=== PATIENT | female | born 1945 | race Caucasian/White ===

== ENCOUNTER → 2017-11-19 08:15 | Outpatient (CLI) | payer MEDICARE, SELFPAY ==
[2017-11-19 12:33] LABS: Absolute Neutrophil Count 1.7 X10^3/uL (2.0-7.7); Basophil# 0.04 X10^3/uL; Basophil% 1.1 % (0-1); Eosinophil# 0.31 X10^3/uL; Eosinophils% 8.3 % (0-5); Hematocrit 37.2 % (37-47); Hemoglobin 12.2 g/dl (12.0-15.0); Lymphocyte % 34.9 % (19-41); Mean Corp Hgb Conc 32.8 g/gl (32-36); Mean Corpuscular Hgb 31.3 pg (27.0-32.0); Mean Corpuscular Volume 95.4 fL (81-99); Mean Platelet Vol. 10.3 fl (6.2-12.0); Monocyte# 0.38 X10^3/uL; Monocyte% 10.2 % (0-10); Neutrophil % 45.5 % (47-70); Platelet Count 200 K/mm3 (150-450); RBC Distribution Width SD 40.7 fl (35.1-43.9); White Blood Count 3.7 K/mm3 (4.4-11.0)
[2017-11-19 12:40] LABS: POSITIVE COUNT NO; POSITIVE DIFFERENTIAL NO; POSITIVE MORPHOLOGY NO
[2017-11-19 12:48] LABS: AST(SGOT) 19 U/L (15-37); Alanine Aminotransfer ALT/SGPT 22 U/L (12-78); Albumin, Serum 3.8 g/dL (3.4-5.0); Alkaline Phosphatase 79 U/L (45-117); Anion Gap 9 (5-15); BUN 21 mg/dL (7-18); BUN/Creat Ratio 15.9 RATIO (10-20); Calcium,Total 9.1 mg/dL (8.5-10.1); Chloride 101 mmol/L (98-107); Cholesterol 188 mg/dL (200); Creatinine, Serum 1.32 mg/dL (0.55-1.02); EST Glomerular Filtration Rate 42 mL/min (>60); Est Glom Filt Rate - Afr Amer 51 mL/min (>60); Globulin 3.9 g/dL (2.2-4.2); Glucose 88 mg/dL (70-110); High Density Lipoprotein 77 mg/dL; Potassium 4.1 mmol/L (3.5-5.1); Protein, Total 7.7 g/dL (6.4-8.2); Sodium Level 138 mmol/L (136-145); Thyroid Stim Hormone (TSH) 2.01 uIU/mL (0.358-3.74); Triglycerides 70 mg/dL; Very Low Density Lipoprotein 14 mg/dL (5-40)
--- OUTSIDE RECORDS SUMMARY | 2018-01-02 11:50 | XMS RPT_ITS ---
:1945 Author Organization OHIP Care Team Providers Name Role Phone Mahendra Brown Primary Care Unavailable Dandre Dolan Attending Unavailable Saud Villa Admitting Unavailable Saud Villa Attending Unavailable Mahendra Brown Primary Care Unavailable Mahendra Brown Attending Unavailable Mahendra Brown Primary Care Unavailable Mahendra Brown Attending Unavailable Mahendra Brown Primary Care Unavailable PROBLEMS PROBLEMS DATE TYPE CONDITION / CODE ATTENDING STATUS SOURCE 01/02/2018 Unknown I10 - Essential Mahendra Brown (primary) Community hypertension / Hospital I10(ICD-10) Repository 06/05/2017 Unknown ESSENTIAL Mahendra Brown Active [place] (PRIMARY) Community HYPERTENSION / Hospital I10(ICD-10) Repository 06/05/2017 Unknown MAJOR DEPRESSIVE Mahendra Brown Active [facility] DISORDER, SINGLE Community EPISODE, Hospital UNSPECIFIED / Repository F32.9(ICD-10) 06/05/2017 Unknown HYPERLIPIDEMIA, Mahendra Brown Active [facility] UNSPECIFIED / Community E78.5(ICD-10) Hospital Repository 02/25/2017 Final diagnosis UNILATERAL PRIMARY Saud Villa Active [facility] (discharge) OSTEOARTHRITIS, Community LEFT HIP / Hospital M16.12(ICD-10) Repository 02/25/2017 Final diagnosis ESSENTIAL Saud Villa Active [place] (discharge) (PRIMARY) Community HYPERTENSION / Hospital I10(ICD-10) Repository 02/25/2017 Final diagnosis PURE Saud Villa Active [place] (discharge) HYPERCHOLESTEROLEM Community IA, UNSPECIFIED / Hospital E78.00(ICD-10) Repository 02/25/2017 Final diagnosis SLEEP APNEA, Saud Villa Active [place] (discharge) UNSPECIFIED / Community G47.30(ICD-10) Hospital Repository 02/11/2017 Admitting SYNCOPE AND Dolan, Dandre Active [place] diagnosis COLLAPSE / Community R55(ICD-10) Hospital Repository PROCEDURES PROCEDURES DATE CODE DESCRIPTION STATUS SOURCE 02/03/2017 8YOG94N(ICD-10 REPLACE L HIP JT W Completed [facility] Community ) METAL ON POLY, Hospital Repository UNCEMENT, OPEN RESULTS RESULTS CBC W/DIFF, AUTOMATED Collected: 11/19/2017 Status: F Source: BERE 8:30 AM [facility] REPOSITORY TYPE CODE TESTS RESULT OUT OF RANGE REFERENCE UNITS LAB L100.1000 Low 4.4-11.0 K/mm3 WBC 3.7 LAB L100.1200 Low 4.2-5.4 M/mm3 RBC 3.90 LAB L100.1300 Normal 12.0-15.0 g/dl HGB 12.2 LAB L100.1400 Normal 37-47 % HCT 37.2 LAB L100.1500 Normal 81-99 fL MCV 95.4 LAB L100.1600 Normal 27.0-32.0 pg MCH 31.3 LAB L100.1700 Normal 32-36 g/gl MCHC 32.8 LAB L100.1810 Normal 11.6-14.6 % RDW 12.0 CV LAB L100.1820 Normal 35.1-43.9 fl RDW 40.7 SD LAB L100.1900 Normal 150-450 K/mm3 PLT 200 LAB L100.2000 Normal 6.2-12.0 fl MPV 10.3 LAB L100.2100 Low 47-70 % NEUT% 45.5 LAB L100.2200 Normal 19-41 % LY% 34.9 LAB L100.2300 High 0-10 % MONO% 10.2 LAB L100.2400 High 0-5 % EO% 8.3 LAB L100.2500 High 0-1 % BASO% 1.1 LAB L100.2550 Normal 0.0-0.9 % IM 0.000 GRAN % Result Comment: IG% - Immature Granulocytes (promyelocytes, myelocytes andmetamyelocytes) > 1% indicates that a LEFT SHIFT is Present. LAB L100.2620 Low 2.0-7.7 X10 3/uL Absolute Neut 1.7 LAB L100.2720 Normal 0.83-4.51 X10 3/ul Absolute Lymph 1.30 Performed By: #### L100.0100 ####[facility] [address] [place], [address] COMPREHENSIVE METABOLIC Collected: 11/19/2017 Status: F Source: BERE PROFIL 8:30 AM [facility] REPOSITORY TYPE CODE TESTS RESULT OUT OF RANGE REFERENCE UNITS LAB L501.0100 Normal 70-110 mg/dL GLU 88 LAB L501.1000 High 7-18 mg/dL BUN 21 LAB L501.1100 High 0.55-1.02 mg/dL 1.32 CREAT,SERUM Result Comment: The validity of the calculated GFR AND GFRAA in patients over70 years has not been determined. Clinical correlation isessential. LAB L501.1110 Low >60 mL/min EST GFR 42 Result Comment: Non- GFR Calc LAB L501.1115 Low >60 mL/min EST GFR - AA 51 Result Comment: GFR Calc LAB L501.1300 Normal 10-20 RATIO BUN/CRE 15.9 LAB L501.1500 Normal 6.4-8.2 g/dL T PROT 7.7 LAB L501.1800 Normal 3.4-5.0 g/dL ALB 3.8 Result Comment: Please note revised Albumin AND Globulin reference rangeeffective 2017. LAB L501.1950 Normal 2.2-4.2 g/dL GLOB 3.9 LAB L501.2000 Normal 0.9-2.4 RATIO A/G 1.0 LAB L501.2200 Normal 8.5-10.1 mg/dL CA 9.1 LAB L501.4100 Normal 15-37 U/L AST 19 LAB L501.4305 Normal 45-117 U/L ALK P 79 LAB L501.4405 Normal 12-78 U/L ALT 22 LAB L501.4600 Normal 0.20-1.00 mg/dL T BILI 0.40 LAB L501.5300 Normal 136-145 mmol/L NA 138 LAB L501.5600 Normal 3.5-5.1 mmol/L K 4.1 LAB L501.5900 Normal 98-107 mmol/L CL 101 LAB L501.6100 Normal 21.0-32.0 mmol/L CO2 28.0 LAB L501.6200 Normal 5-15 GAP 9 Performed By: #### L500.4050, L500.4100, L501.9520 ####[facility] [address] [place], [place], [id number] LIPID PROFILE Collected: 11/19/2017 Status: F Source: BERE 8:30 AM [facility] REPOSITORY TYPE CODE TESTS RESULT OUT OF RANGE REFERENCE UNITS LAB L501.4900 Normal 200 mg/dL CHOL 188 Result Comment: <200 mg/dL Desirable 200-240 mg/dL Borderline >240 mg/dL High Risk LAB L501.5000 Normal mg/dL TRIG 70 Result Comment: The drugs N-Acetylcysteine and Metamizole may falselydepress this assay.Serum Triglycerides Reference Interval Normal <150 mg/dL Borderline high 150 - 199 mg/ dL High 200 - 499 mg/dL Very High > or = 500 mg/dL LAB L501.6400 Normal mg/dL HDL 77 Result Comment: The drugs N-Acetylcysteine and Metamizole may falselydepress this assay. Reference Range HDL <40 mg/dL Low HDL Cholesterol HDL >or= 60 mg/dL High HDL Cholesterol LAB L501.6500 Normal 0-130 mg/dL LDL 97 LAB L501.6600 Normal 5-40 mg/dL VLDL 14 Performed By: #### L500.4050, L500.4100, L501.9520 ####[facility] [address] [place], [place], [address] THYROID STIM HORMONE Collected: 11/19/2017 Status: F Source: HUBERT (TSH) 8:30 AM [facility] REPOSITORY TYPE CODE TESTS RESULT OUT OF RANGE REFERENCE UNITS LAB L501.9520 Normal 0.358-3.74 uIU/mL TSH 2.01 Performed By: #### L500.4050, L500.4100, L501.9520 ####[facility] [address] [place], [address] CBC W/DIFF, AUTOMATED Collected: 05/19/2017 Status: F Source: BERE 8:46 AM [facility] REPOSITORY TYPE CODE TESTS RESULT OUT OF RANGE REFERENCE UNITS LAB L100.1000 Low 4.4-11.0 K/mm3 WBC 3.8 LAB L100.1200 Low 4.2-5.4 M/mm3 RBC 3.90 LAB L100.1300 Low 12.0-15.0 g/dl HGB 11.5 LAB L100.1400 Low 37-47 % HCT 36.2 LAB L100.1500 Normal 81-99 fL MCV 92.8 LAB L100.1600 Normal 27.0-32.0 pg MCH 29.5 LAB L100.1700 Low 32-36 g/gl MCHC 31.8 LAB L100.1810 Normal 11.6-14.6 % RDW 12.6 CV LAB L100.1820 Normal 35.1-43.9 fl RDW 42.4 SD LAB L100.1900 Normal 150-450 K/mm3 PLT 217 LAB L100.2000 Normal 6.2-12.0 fl MPV 10.3 LAB L100.2100 Low 47-70 % NEUT% 46.4 LAB L100.2200 Normal 19-41 % LY% 34.4 LAB L100.2300 Normal 0-10 % MONO% 9.6 LAB L100.2400 High 0-5 % EO% 7.7 LAB L100.2500 High 0-1 % BASO% 1.6 LAB L100.2550 Normal 0.0-0.9 % IM 0.300 GRAN % Result Comment: IG% - Immature Granulocytes (promyelocytes, myelocytes andmetamyelocytes) > 1% indicates that a LEFT SHIFT is Present. LAB L100.2620 Low 2.0-7.7 X10 3/uL Absolute Neut 1.7 LAB L100.2720 Normal 0.83-4.51 X10 3/ul Absolute Lymph 1.29 Performed By: #### L100.0100 ####[facility] [address] [place], [place], [address] BASIC METABOLIC Collected: 05/19/2017 Status: F Source: BERE PROFILE (BMP) 8:46 AM [facility] REPOSITORY TYPE CODE TESTS RESULT OUT OF RANGE REFERENCE UNITS LAB L501.0100 Normal 70-110 mg/dL GLU 94 LAB L501.1000 High 7-18 mg/dL BUN 19 LAB L501.1100 High 0.55-1.02 mg/dL 1.35 CREAT,SERUM Result Comment: The validity of the calculated GFR AND GFRAA in patients over70 years has not been determined. Clinical correlation isessential. LAB L501.1110 Low >60 mL/min EST GFR 41 Result Comment: Non- GFR Calc LAB L501.1115 Low >60 mL/min EST GFR - AA 49 Result Comment: GFR Calc LAB L501.1300 Normal 10-20 RATIO BUN/CRE 14.1 LAB L501.2200 Normal 8.5-10.1 mg/dL CA 9.4 LAB L501.5300 Normal 136-145 mmol/L NA 138 LAB L501.5600 Normal 3.5-5.1 mmol/L K 4.6 LAB L501.5900 Normal 98-107 mmol/L CL 104 LAB L501.6100 Normal 21.0-32.0 mmol/L CO2 30.0 LAB L501.6200 Low 5-15 GAP 4 Performed By: #### L500.2500, L500.4100, L501.9520 ####[facility] [address] [place], [address] LIPID PROFILE Collected: 05/19/2017 Status: F Source: HUBERT 8:46 AM [facility] REPOSITORY TYPE CODE TESTS RESULT OUT OF RANGE REFERENCE UNITS LAB L501.4900 Normal 200 mg/dL CHOL 198 Result Comment: <200 mg/dL Desirable 200-240 mg/dL Borderline >240 mg/dL High Risk LAB L501.5000 Normal mg/dL TRIG 68 Result Comment: The drugs N-Acetylcysteine and Metamizole may falsely deressthis assay.Serum Triglycerides Reference Interval Normal <150 mg/dL Borderline high 150 - 199 mg/ dL High 200 - 499 mg/dL Very High > or = 500 mg/dL LAB L501.6400 Normal mg/dL HDL 83 Result Comment: The drugs N-Acetylcysteine and Metamizole may falsely deressthis assay. Reference Range HDL <40 mg/dL Low HDL Cholesterol HDL >or= 60 mg/dL High HDL Cholesterol LAB L501.6500 Normal 0-130 mg/dL LDL 101 LAB L501.6600 Normal 5-40 mg/dL VLDL 14 Performed By: #### L500.2500, L500.4100, L501.9520 ####[facility] [address] [place], [address] THYROID STIM HORMONE Collected: 05/19/2017 Status: F Source: HUBERT (TSH) 8:46 AM [facility] REPOSITORY TYPE CODE TESTS RESULT OUT OF RANGE REFERENCE UNITS LAB L501.9520 Normal 0.358-3.74 uIU/mL TSH 1.97 Performed By: #### L500.2500, L500.4100, L501.9520 ####[facility] [address] [place], [address] DISCHARGE INSTRUCTION Observed: 02/05/2017 Status: F Source: BEER 10:29 AM [facility] REPOSITORY [facility] [address] [place], [place] [address]Htcicpdjtvsp for Home/Discharge Khgeuvzxtwzt36/12/17 1028 #: [id number] Acct: [id number]: MOISÉS JIMENEZ Rep #: [id number]: 1945 71 From: Reyes WADDELLCPCP: Mahendra Brown Status: ADM INDischarge Diet: No RestrictionsDischarge Activity: May Not Drive, May Shower , Use WalkerMay shower in (days): 1 - only if incision is dry and without drainage. Do NOT soak/submerge intub/pool/nickerson/stream/hot tub.May resume sexual activity in: No RestrictionsIce area for (Minutes): 20 - every hour while awakeWeight Bearing Status: Weight bearing as tolLifting Restrictions: 20 poundsElevate: Operative ExtremityCall your doctor if your incision/area has: Continuous Slow Oozing, Sudden Increased Bleeding,Increased Pain/ Swelling, Increased Redness, Foul Smelling DischargeCall your doctor if you observe: Fever of 101 or Higher, Inability to urinate, Inability tohave a bowel movement, Shortness of breath, Fainting spells, Chest pain, Increased palpitations(irregular heartbeat), Calf discomfort, Uncontrolled painChange Dressing in (Days):: 0 - Change daily and as needed.Remove Dressing in (days):: 3Cleanse incision/area with: Soap AND WaterAllergies/Adverse Reactions:AllergiesNo Known Allergies Allergy (Verified 01/27/17 12:29)Medications to take at DischargeCalcium (Elemental) [Os-Nicolas 500] 500 mg PO DAILY@0800 01/27/17Citalopram [Celexa] 40 mg PO DAILY 01/27/17Fish Oil/Dha/Epa [Fish Oil 1,200 mg Fish Oil] 1 each PO DAILY 01/27/17Losartan/Hydrochlorothiazide [Losartan-Hctz 50-12.5 mg Tab] 1 each PO QHS 01/27/17Nortriptyline HCl [Pamelor] 50 mg PO QHS 01/27/17Simvastatin [Zocor] 10 mg PO QHS 01/27/17Vitamin E Acetate [Vitamin E] 1,000 unit PO DAILY cetaminophen [Tylenol] 1,000 mg PO Q8 #90 tablet 02/05/17spirin 325 mg PO BIDCM #60 tablet 02/05/17TraMADol [Ultram (G)] 100 mg PO Q6H PRN PRN #90 tablet 02/05/17The following prescriptions were given:TraMADol [Ultram (G)] 100 mg PO Q6H PRN PRN #90 tabletPRN Reason: PainAcetaminophen [Tylenol] 1,000 mg PO Q8 #90 tabletAspirin 325 mg PO BIDCM #60 tabletPrimary Care Physician:Mahendra Brown MD [Primary Care Provider] - Please Follow Up With: Saud Villa02/05/17 1029 <Electronically signed by Reyes Hdez PA-C>Date Reyes ROSALES: Mahendra Brown OPERATIVE REPORT Observed: 02/04/2017 Status: F Source: HUBERT 8:09 AM [facility] REPOSITORY [facility] [address] [place] [address]Coitshnzy ReportMR#: [id number] Acct: [id number]: MOISÉS JIMENEZ Rep #: [id number]: 1945 71 From: Saud Villa DOPCP: Mahendra Brown Status: ADM INDATE OF SERVICE: 2016DATE OF SERVICE:February 03, 2017OPERATION:Left total hip replacement arthroplasty utilizing Lisbeth Trident size 50 acetabular cup,MDM metal liner, size 7 Accolade type II 132 degree neck angle femoral stem with +0 cobaltchromium polyethylene modular femoral head.PREOPERATIVE DIAGNOSIS:Osteoarthritis, left hip.POSTOPERATIVE DIAGNOSIS:Osteoarthritis, left hip.SURGEON:Saud Villa D.O.CLINIC OFFICE MANAGER: OSMAR Martinez-CANESTHESIA:Spinal.ANESTHESIOLOGIST:LisalaAINS:None.SPECIMEN: Bone.COMPLICATIO NS:None.ESTIMATED BLOOD LOSS:150 mL.DESCRIPTION OF PROCEDURE:With appropriate informed consent, the patient was taken to the operative suite. Afterthe induction of spinal anesthetic and administration of preoperative antibiotics, thepatient was placed in the lateral decubitus position with the left side up. All bonyprominences were well padded. Subsequently, the left hip and leg were prepared and drapedsterilely. Thereafter, a gently curved longitudinal incision was made over the lateralaspect of the left hip, centered it to the greater trochanter. Dissection was carrieddown through the subcutaneous tissue to the fascia of the tensor. The tensor fascia wasincised in line with the incision and then a Charnley retractor was placed. Subsequently,short external rotators were tagged with a stitch and cut. A posterior capsulotomy wasperformed and the hip was dislocated with internal rotation. Severe osteoarthritis wasappreciated. Subsequently, the femoral neck was marked with femoral neck resection guideand an oscillating saw was utilized to perform the femoral neck osteotomy. Theosteotomized bone was removed and sent as specimen. Thereafter, a retractor was placeddeep around the acetabulum. Labral tissue was removed and then sequential reaming of thecup was carried out to a 49 reamer. A size [address] cup was impacted into place. The MDM metalliner was snapped into place and then attention was brought to the femur.Access was gained to the femoral shaft with a box chisel and starting awl and thensequential broaching was carried out up to a size 7 broach. Trialing off the 7 broachrevealed the +0 head neck length gave excellent range of motion, stability andreapproximation of the patient's leg lengths.The trial was removed. Pericapsular soft tissue was injected with orthopedic jointcocktail for postoperative pain management. Thereafter, the permanent stem was impactedinto place. It seated to the exact same level as the trial. Therefore, the trunnion wascleansed and the permanent modular cobalt chromium polyethylene ball was impacted intoplace on the stem. The hip was relocated for a final time. Copious irrigation wascarried out with the terminal Betadine soak. Thereafter, the short external rotators wererepaired through drill holes in the greater trochanter and the wound was closed in layersin standard fashion with enmanuel on the skin. Sterile well- padded dressing was applied.My medical library assistant, Mr. Hdez, provided a vital role in performance of this procedure, beginningwith positioning the patient, maneuvering the leg and retracting soft tissues duringexposure of the wound, preparation of the bone and placement of the prosthesis. Then,under my direct supervision, he closed the wound and applied sterile postoperativedressing. Postoperatively, the patient was transferred to the PACU in stable andsatisfactory condition.Saud Villa, DOT : NTSJOB: [id number]/09/12 [id number] <Electronically signed by Saud Villa DO>Date Saud Villa DOCosigner Signature (If Indicated): Date ___CC: Saud Brown Date Dictated: 02/03/17 1257Date Transcribed : 02/03/17 1257Transcriptionist:Signed CBC-COMPLETE BLOOD CNT Collected: 02/04/2017 Status: F Source: BERE NO DIFF 5:30 AM [facility] REPOSITORY TYPE CODE TESTS RESULT OUT OF RANGE REFERENCE UNITS LAB L100.1000 Normal 4.4-11.0 K/mm3 WBC 5.9 LAB L100.1200 Low 4.2-5.4 M/mm3 RBC 3.09 LAB L100.1300 Low 12.0-15.0 g/dl HGB 9.6 LAB L100.1400 Low 37-47 % HCT 29.2 LAB L100.1500 Normal 81-99 fL MCV 94.5 LAB L100.1600 Normal 27.0-32.0 pg MCH 31.1 LAB L100.1700 Normal 32-36 g/gl MCHC 32.9 LAB L100.1810 Normal 11.6-14.6 % RDW 12.3 CV LAB L100.1820 Normal 35.1-43.9 fl RDW 41.5 SD LAB L100.1900 Normal 150-450 K/mm3 PLT 173 LAB L100.2000 Normal 6.2-12.0 fl MPV 9.2 Performed By: #### L100.0500, L500.2500 ####[facility] [address] [place], [place], [address] BASIC METABOLIC Collected: 02/04/2017 Status: F Source: BERE PROFILE (BMP) 5:30 AM [facility] REPOSITORY TYPE CODE TESTS RESULT OUT OF RANGE REFERENCE UNITS LAB L501.0100 High 70-110 mg/dL GLU 113 Result Comment: Fasting Glucose result from 110 to <126 mg/dLsuggests IMPAIRED HOMEOSTASIS per A.D.A. criteria. LAB L501.1000 Normal 7-18 mg/dL BUN 16 LAB L501.1100 High 0.55-1.02 mg/dL CREAT,SERUM 1.29 Result Comment: The validity of the calculated GFR AND GFRAA in patients over70 years has not been determined. Clinical correlation isessential. LAB L501.1110 Low >60 mL/min EST GFR 43 Result Comment: Non- GFR Calc LAB L501.1115 Low >60 mL/min EST GFR - AA 52 Result Comment: GFR Calc LAB L501.1255 Normal ml/min Estimated 36.36 CRCL LAB L501.1300 Normal 10-20 RATIO BUN/CRE 12.4 LAB L501.2200 Normal 8.5-10 mg/dL CA 8.5 .1 LAB L501.5300 Low 136-14 mmol/L NA 135 5 LAB L501.5600 Normal 3.5-5. mmol/L K 4.1 1 LAB L501.5900 Normal 98-107 mmol/L CL 102 LAB L501.6100 Normal 21.0-3 mmol/L CO2 29.0 2.0 LAB L501.6200 Low 5-15 GAP 4 Performed By: #### L100.0500, L500.2500 ####[facility] [address] [place], [address] CBC-COMPLETE BLOOD CNT Collected: 02/03/2017 Status: F Source: BERE NO DIFF 1:42 PM [facility] REPOSITORY Order Comment: TO BE DONE IN PACUTO BE DONE IN PACUComments: To be done in PACU TYPE CODE TESTS RESULT OUT OF RANGE REFERENCE UNITS LAB L100.1000 Normal 4.4-11.0 K/mm3 WBC 6.9 LAB L100.1200 Low 4.2-5.4 M/mm3 RBC 3.31 LAB L100.1300 Low 12.0-15.0 g/dl HGB 10.5 LAB L100.1400 Low 37-47 % HCT 31.3 LAB L100.1500 Normal 81-99 fL MCV 94.6 LAB L100.1600 Normal 27.0-32.0 pg MCH 31.7 LAB L100.1700 Normal 32-36 g/gl MCHC 33.5 LAB L100.1810 Normal 11.6-14.6 % RDW 11.7 CV LAB L100.1820 Normal 35.1-43.9 fl RDW 39.1 SD LAB L100.1900 Normal 150-450 K/mm3 PLT 198 LAB L100.2000 Normal 6.2-12.0 fl MPV 9.5 Performed By: #### L100.0500, L500.2500 ####[facility] [address] [place], [place], [address] BASIC METABOLIC Collected: 02/03/2017 Status: F Source: BERE PROFILE (BMP) 1:42 PM [facility] REPOSITORY Order Comment: TO BE DONE IN PACUComments: To be done in PACU TYPE CODE TESTS RESULT OUT OF RANGE REFERENCE UNITS LAB L501.0100 High 70-110 mg/dL GLU 117 Result Comment: Fasting Glucose result from 110 to <126 mg/dLsuggests IMPAIRED HOMEOSTASIS per A.D.A. criteria. LAB L501.1000 Normal 7-18 mg/dL BUN 15 LAB L501.1100 High 0.55-1.02 mg/dL CREAT,SERUM 1.28 Result Comment: The validity of the calculated GFR AND GFRAA in patients over70 years has not been determined. Clinical correlation isessential. LAB L501.1110 Low >60 mL/min EST GFR 43 Result Comment: Non- GFR Calc LAB L501.1115 Low >60 mL/min EST GFR - AA 53 Result Comment: GFR Calc LAB L501.1255 Normal ml/min Estimated 36.64 CRCL LAB L501.1300 Normal 10-20 RATIO BUN/CRE 11.7 LAB L501.2200 Normal 8.5-10 mg/dL CA 8.7 .1 LAB L501.5300 Normal 136-14 mmol/L NA 139 5 LAB L501.5600 Normal 3.5-5. mmol/L K 3.7 1 LAB L501.5900 Normal 98-107 mmol/L CL 107 LAB L501.6100 Normal 21.0-3 mmol/L CO2 28.0 2.0 LAB L501.6200 Low 5-15 GAP 4 Performed By: #### L100.0500, L500.2500 ####[facility] [address] [place], [address] TOTAL HIP REPLACEMENT Observed: 02/03/2017 Status: F Source: HUBERT 12:18 PM [facility] REPOSITORY Patient: MOISÉS JIMENEZ : 1945 (71/F) Acct Num: [id number] Phys: Saud Villa DO Unit Num: [id number] Loc: MS3 BH828-5 Specimen: [id number] Received: 02/03/171439 Spec Type: TOTAL HIP TISSUES TISSUES: GROSS DESCRIPTION Received is one container labeled with the patient's name and designated bone and soft tissue hip, left. The specimen consists of a mccoy femoral head. The femoral head measures 6 x 4.8 x 4.6 cm. The articular surface displays prominent osteophyte formation, eburnation and bone erosion. Also present in the specimen container are multiple irregular fragments of bone reamings measuring 8 x 7 x 1 cm and pink-yellow soft tissue measuring in aggregate 4 x 4 x 2 cm. Mica Plate Layer sections are submitted in two cassettes as follows: 1 - soft tissue, 2 - bone after decalcification. / AM:dory 02/03/17 TC: 5 CPT: 36891, 43205 HEADER OPERATION: Left total hip replacement PRE-OP DIAGNOSIS: Primary osteoarthritis left hip TISSUE SUBMITTED: Bone and tissue left hip MICROSCOPIC DESCRIPTION Slides are reviewed. MICROSCOPIC DIAGNOSIS Bone and soft tissue, left hip, total hip replacement/resection: Femoral head with degenerative osteoarthritic changes. Fragments of fibroadipose tissue, fibroconnective tissue and skeletal muscle tissue. SJ:dory 02/06/17 Signed Juan Dillard 02/06/17 <signature on file> Performed By: #### PHIP ####[facility] [address] [facility] [place], [address] HIP MIN 2 VIEWS Observed: 02/03/2017 Status: F Source: HUBERT (PORTABLE) 11:32 AM [facility] REPOSITORY [facility]ITAL[facility] [address] [facility] [place], [place] [address]Uvcshub 4dHip Min 2 Views (Portable)MR#: [id number] Acct: [id number]: MOISÉS JIMENEZ Rep #: [id number]: 1945 F 71 From: Nhan Anderson MDPCP: Mahendra Brown Status: ADM INStudy: Hip Min 2 Views (Portable) Date of Exam: 02/03/17Exam# [id number] Ordering Dr: Saud Villa DOSTUDY: X-RAY - PELVIS AND LEFT HIPREASON FOR EXAM: Female, 71 years old. Left hip replacement.TECHNIQUE: Radiological exam, hip, unilateral, with pelvis whenperformed; 2 or 3 views.COMPARISON: None. FINDINGS:There is a non-specific bowel gas pattern. Postoperative soft tissuechanges.The patient is status post left hip replacement. The alignment. ORDER #: [id number] RAD/Hip Min 2 Views (Portable)IMPRESSION:Status post left total hip replacement. There is good alignment.Postoperative soft tissue changes.Electronically Signed:Nhan Anderson MD at 14:18 EDTTel [phone], Service support [phone], OD: Sadu Villa DO; Mahendra Brown Scraper Operator:Signed 12 LEAD ELECTROCARDIOGRAM Observed: 01/30/2017 Status: F Source: HUBERT 1:20 PM [facility] REPOSITORY [facility]ITALCard[facility] [address] [place], [place] [address] Lead EKG001/23/17 2124MR#: [id number] Acct: [id number]: MOISÉS JIMENEZ Rep #: [id number]: 1945 71 From: Felipe Cuevas MDAttending Dr: Status: DEP EROrdering Dr: Dandre Dolan MD Date: 01/23/17Location: ED Sex: F CAdmitted:Test Reason :Blood Pressure : / mmHGVent. Rate : 083 BPM Atrial Rate : 083 BPMP-R Int : 196 ms QRS Dur : 102 msQT Int : 388 ms P-R-T Axes : 077 046 061 degreesQTc Int : 455 msNormal sinus rhythmNormal ECGConfirmed by FELIPE CUEVAS MD ([id number]), film and video editor HARSHAD PRICE ([id number]) on 01/27/2017 1:14:18 PMReferred By: RUTH Confirmed By:FELIPE CUEVAS MD01/27/17 1314Date Felipe Cuevas [facility]: Mahendra Brown Date Dictated: 01/23/17ate Transcribed: 01/23/172123Transcriptionist:Signed HISTORY AND PHYSICAL Observed: 01/27/2017 Status: F Source: HUBERT EXAM 1:47 PM [facility] REPOSITORY [facility] [address] [address]Dscehyu and Vcyvbjuy46/03/17 0735MR#: [id number] Acct: [id number]: MOISÉS JIMENEZ Rep #: [id number]: 1945 71 From: Anju OrdonezCP: Mahendra Brown Status: PRE INLocation: ACINPDATE OF SERVICE:Anju Bryan PA-C dictating preoperative history and physical examination for Dr.Michael Villa.PRIMARY CARE PROVIDER:Mahendra Brown M.D.PROCEDURE TYPE:Left total hip arthroplasty.PROCEDURE DATE:02/03/2017.ATTENDING PHYSICIAN: Dr. Saud Villa.HISTORY OF PRESENT ILLNESS:This is a 71-year-old female who has had ongoing progressive worsening of her left hippain over the past year. It is described as sharp and stabbing, worse with stairs andwalking any distance, sitting for an extended period of time or driving her car. Sitting,resting, elevating the leg, standing and walking again helped to alleviate these symptomsat times. She has difficulty with housework due to the left hip pain. She has trippedand stumbled at times. She uses a cane for stability and balance. She feels unsafeshopping and merely walking for fear of tripping and stumbling with the painful left leg.Conservative measures have included rest, ice, heat, elevation. She had a cortisoneinjection in October of [address] Barrera. It was helpful for a short period of timeand then it wore off. Pain increases with ambulation. She has tried Aleve andnabumetone. She has tried physical therapy, home exercises, chiropractic treatments. Shehas not had any surgeries on this hip. X-rays are with progressive osteoarthritis. Afterfailing conservative measures, discussing and reviewing all treatment options with Dr.Michael Villa, the patient does wish to proceed with a left total hip arthroplasty.PAST MEDICAL HISTORY:Significant for:1. Osteoarthritis.2. Hypertension.3. Hypercholesterolemia.4. Sleep apnea.PAST SURGICAL HISTORY:Back surgery x2.SOCIAL HISTORY:The patient is disabled, left hand dominant, denies tobacco use, denies alcohol use.Denies illicit drug use, assistive devices include glasses, dentures, full upper and lowerplates, denies hearing aids.REVIEW OF SYSTEMS:Within normal limits except for what is documented below within the physical exam.ALLERGIES:No known drug allergies.CURRENT MEDICATIONS:Include:1. Aleve 220 mg 2 tabs p.o. by mouth daily as needed.2. Citalopram 40 mg 1 p.o. q. day.3. Losartan potassium/hydrochlorothiazide 1 p.o. q. day.4. Nabumetone 750 mg 1 p.o. b.i.d.5. Nortriptyline 50 mg 1 p.o. q. day.6. Simvastatin 10 mg 1 p.o. q. day.PHYSICAL EXAMINATION:VITAL SIGNS: Height 65 inches, weight 200 pounds, BMI 33.3, blood pressure 120/80, pulse80, respirations 16, temperature 98.1.GENERAL: The patient is alert and oriented x3, no acute distress at rest, breathingeasily without respiratory distress.HEENT: Head normocephalic, atraumatic. Eyes: PERRLA, EOMI, sclerae are anicteric,conjunctivae without injection. Ears: Auditory acuity grossly intact bilaterally. Nose:Bilateral patent nares without tenderness or drainage. Throat: Pharynx clear withouterythema or exudate. Tongue and uvula midline. Buccal mucosa pink and moist.NECK: Supple , without adenopathy, JVD, carotid bruit, masses or tenderness.CHEST: Symmetrical, nontender to palpation. AP diameter within normal limits.HEART: Regular rate and rhythm without murmurs, rubs or gallops appreciated at this time.LUNGS: Clear to auscultation bilaterally without wheezes, rales or rhonchi.ABDOMEN: Soft, nondistended. Normoactive bowel sounds x4 without tenderness.NEUROLOGIC: Cranial nerves II-XII grossly intact without any focal sensorimotor deficitsnoted.EXTREMITIES/MUSCULOSKELETAL: Good pulses. Ambulates with an antalgic gait on the lefthip, range of motion is restricted and with pain upon internal and external rotation.SKIN: Warm and dry.DIAGNOSTIC STUDIES:X-rays of left hip dated 09/02/2016 from [facility] withdegenerative osteoarthritis of the femoral head and acetabulum, slightly shorter on theleft leg, mild to moderate osteoarthritis, right hip, previous surgery with hardware inplace, lumbar spine.IMPRESSION:1. Primary osteoarthritis, left hip.2. Hypertension.3. Hypercholesterolemia.4. Sleep apnea.PLAN:Dr. Saud Villa did discuss and review with the patient all treatment options includingsurgical versus nonsurgical. At this time, the patient does wish to proceed with lefttotal hip arthroplasty. Potential risks, benefits and complications of this procedurereviewed in detail including but not limited to , infection, nerve and blood vesseldamage, persistent pain, numbness, tingling, paresthesias, blood clot, pulmonary embolismand requirement of possible further surgery. The patient expressed full understanding,has no further questions for the doctor and does agree to proceed with the above- statedprocedure and signed the appropriate surgery consent form. The stay will be greater than2 midnights and plan is for discharge to home upon leaving the hospital.Anju Bryan PAT: NTSJOB: [id number]: Time: Anju Vail: Anju Brown Date Dictated: 01/27/17734Date Transcribed: 01/27/17734Transcriptionist:Signed____ I have re-examined the patient. There are no clinical changes since date ofexam.____ See Progress Notes for Changes____ Dictated on AdmissionDate: Time: Signature: CBC-COMPLETE BLOOD CNT Collected: 01/27/2017 Status: F Source: BERE NO DIFF 1:01 PM [facility] REPOSITORY TYPE CODE TESTS RESULT OUT OF RANGE REFERENCE UNITS LAB L100.1000 Normal 4.4-11.0 K/mm3 WBC 5.3 LAB L100.1200 Low 4.2-5.4 M/mm3 RBC 3.74 LAB L100.1300 Low 12.0-15.0 g/dl HGB 11.9 LAB L100.1400 Low 37-47 % HCT 35.4 LAB L100.1500 Normal 81-99 fL MCV 94.7 LAB L100.1600 Normal 27.0-32.0 pg MCH 31.8 LAB L100.1700 Normal 32-36 g/gl MCHC 33.6 LAB L100.1810 Normal 11.6-14.6 % RDW 11.8 CV LAB L100.1820 Normal 35.1-43.9 fl RDW 39.9 SD LAB L100.1900 Normal 150-450 K/mm3 PLT 223 LAB L100.2000 Normal 6.2-12.0 fl MPV 9.6 Performed By: #### L100.0500 ####[facility] [address] [place], [place], [address] BASIC METABOLIC Collected: 01/27/2017 Status: F Source: BERE PROFILE (BMP) 1:01 PM [facility] REPOSITORY TYPE CODE TESTS RESULT OUT OF RANGE REFERENCE UNITS LAB L501.0100 Normal 70-110 mg/dL GLU 82 LAB L501.1000 High 7-18 mg/dL BUN 21 LAB L501.1100 High 0.55-1.02 mg/dL 1.41 CREAT,SERUM Result Comment: The validity of the calculated GFR AND GFRAA in patients over70 years has not been determined. Clinical correlation isessential. LAB L501.1110 Low >60 mL/min EST GFR 39 Result Comment: Non- GFR Calc LAB L501.1115 Low >60 mL/min EST GFR - AA 47 Result Comment: GFR Calc LAB L501.1255 Normal ml/min Estimated 33.27 CRCL LAB L501.1300 Normal 10-20 RATIO BUN/CRE 14.9 LAB L501.2200 Normal 8.5-10 mg/dL CA 9.3 .1 LAB L501.5300 Low 136-14 mmol/L NA 134 5 LAB L501.5600 Normal 3.5-5. mmol/L K 3.9 1 LAB L501.5900 Normal 98-107 mmol/L CL 100 LAB L501.6100 Normal 21.0-3 mmol/L CO2 31.0 2.0 LAB L501.6200 Low 5-15 GAP 3 Performed By: #### L500.2500 ####[facility] [address] [facility] [place], [address] Observed: 01/27/2017 Status: F Source: [facility] MRSA/SAID SCREEN 1:01 PM [facility] REPOSITORY MRSA/SAID SCRNRESULTS CALLED TO [facility] AT [facility] 01/28/17 1340 Usha Ford. REPORT READ BACK BY SAME. Copy of report sent to Infection Control Printer MS#[id number] 01/28/17 1340 MINDY. REPORT SENT TO CLINICAL NURSE S. AUREUS S. aureus PositiveMRSA MRSA Negative Performed By: #### M100.651 ####[facility] [address] [facility] [place], [address] EMERGENCY DEPARTMENT Observed: 01/23/2017 Status: F Source: [facility] SUMMARY 11:27 PM [facility] REPOSITORY [facility] [id number] [place] [address]Wpkgydouk Department SummaryMR#: [id number] Acct: [id number]: YEATER,MOISÉS Rep #: [id number]: 1945 71 From: Dandre Dolan MDPCP: Mahendra Brown Status: DEP ERDATE OF SERVICE: 01/23/2017HISTORY OF PRESENT ILLNESS:The patient is a 71-year-old female who presents with near syncopal episode. She was in [employer], which is a motorized vehicle at [employer]. When she attempts to get out, she becamewarm, nauseous and lightheaded as if she was going to pass out. She denies headache. Shedenied visual, ocular or auditory symptoms. She denies trouble with speech or swallowing.She denies paresthesia, anesthesia, or motor weakness of upper and lower extremity. Shedenied problems with balance. She denies any chest pain, shortness of breath, ordifficulty breathing. She denies any black dark stool. She states this happened in thepast with no known cause. She has not had any recent surgery, mobilization, and denieshistory of PE or DVT.PAST MEDICAL HISTORY:Hypertension.PRIMARY CARE PHYSICIAN:Dr. Zhang.PHYSICAL EXAMINATION:VITAL SIGNS: Unremarkable. Orthostatics were unremarkable.HEENT: Unremarkable.NECK: Trachea midline. No carotid bruit.LUNGS: Clear to auscultation.HEART: Regular without murmur, gallop or rub.ABDOMEN: Soft and nontender. No palpable pulsatile mass or abdominal bruit.EXTREMITIES: She has symmetrical pulses in the upper and lower extremities.NEUROLOGIC: She is alert. She is oriented x3. Motor is 5/5. Sensation is intact. DTRsare symmetric with no clonus or Babinski. Cranial nerves II- XII are intact.EMERGENCY DEPARTMENT COURSE:The patient was placed on monitor. No ectopy during her 70 minutes stay. EKG normalsinus rhythm, rate 83. The patient did complain of nausea and was given Zofran.IMPRESSION:Vasovagal near syncopal episode.DISPOSITION:Discharge.BRAVO Alvarez C: Mahendra BrownT: NTSJOB: [id number] <Electronically signed by Dandre Dolan MD>Date ___ Dandre [facility] hospital[facility] Signature (If Indicated ): Date CC: Mahendra Brown Date Dictated: 01/23/172226Date Transcribed: 01/23/172226Transcriptionist: Signed DISCHARGE INSTRUCTION Observed: 01/23/2017 Status: F Source: [facility] 10:27 PM [facility] REPOSITORY [facility] [id number] [address]Tymuqozuh Kbjebtvwqkz55/30/17 2225MR#: [id number] Acct: [id number]: MOISÉS JIMENEZ Rep #: [id number]: 1945 71 From: Dandre Dolan MDPCP: Mahendra Brown Status: REG ERED Disposition- Plan for ED Patient:Disposition: Home or Assisted LivingChief Complaint: DizzinessInstructions: ED Near Syncope VasovagalReferrals:Mahendra Brown MD [ Primary Care Provider] - As NeededWhat to do if you have ProblemsFor any increased pain , shortness of breath, bleeding, nausea or vomiting, chest pain, or anyunexpected problems, contact your Primary Care Provider. Call [facility] )or report to the closest Emergency Room.Call 911 if necessary.01/23/172226 <Electronically signed by Dandre Dolan MD>Date Dandre Dolan [facility] Signature (If Indicated ): Date CC: Mahendra Brown ALLERGIES ALLERGIES DATE TYPE / CODE NAME / CODE REACTION SEVERITY SOURCE 01/27/2017 Drug No Known Unknown [facility] Allergy/416 Allergies/H14898 Hospital 614452(SNOM 0388(RXNORM) Repository ED CT) 01/27/2017 Drug No Known [facility] Allergy/416 Allergies/K41825 Hospital 021003(SNOM 0388(RXNORM) Repository ED CT) 01/27/2017 Allergy/420 No Known [facility] 270283([facility] Allergies Hospital ED CT) Repository ENCOUNTERS ENCOUNTERS ADMIT/DISCHARGE ACCOUNT ADMITTING ENCOUNTER LOCATION SOURCE NUMBER CLASS 11/19/2017 [id number] Ambulatory [facility] 7 [facility] ing:BFHLAB Repository 05/19/2017 [id number] [facility] ing:BFHLAB Repository 02/03/2017/ [id number] [place], Inpatient [facility] 7 2 [facility] Encounter [facility] ing:OO1Hrdw: Repository [id number]: 1 01/23/2017/ [id number] Emergency [facility] 7 7 [facility] ing:ED Repository PAYERS PAYERS ENCOUNTER GUARANTOR PAYER SUBSCRIBER SOURCE 11/19/2017 UVALDO E Primary MOISÉS [facility] [id number] STATE Insurance:HUMANA YEATERDOB: Community [address] MEDICARE [facility] [id number] [place] Number: Repository [address]Smd: [phone] [id number] [phone] (HP) Date:[id number] [address] [address]KA: 11/19/2017 Secondary NOT GIVENUNK [facility] Insurance:SELF PAY [facility] Number: Effective Repository Date:2017-11-19 05/19/2017 UVALDO E Primary MOISÉS Bere [id number] STATE Insurance:HUMANA YEATERDOB: Community [address] MEDICARE [facility] [id number] [place] Number: Repository [address]Vpe: [phone]) [id number] [phone] () Date:[id number] [address] [address]GZ: 02/03/2017 UVALDO E Primary MOISÉS Bere [id number] STATE Insurance:HUMANA YEATERDOB: Community [address] MEDICARE [facility] [id number] [facility] [place] Number: Repository [address]Hpw: [phone] [id number] [phone] (HP) Date:0795-59-20NQ [address] [place] [address]WV: 01/23/2017 UVALDO E Primary MOISÉS Bere [id number] STATE Insurance:HUMANA YEATERDOB: Community [address] MEDICARE [id number] [place] Number[facility] Repository [address]Qlg: [phone] [id number] [phone] (HP) Date:6104-95-93[address] [address]NN[place]BPGM, [place] [address]TC:
== END ==
PROVIDERS: Family Provider Family Medicine; PCP Family Medicine; Visit Provider Family Medicine
DX: I12.9 Hypertensive chronic kidney disease with stage 1 through stage 4 chronic kidney disease, or unspecified chronic kidney disease (principal); N18.9 Chronic kidney disease, unspecified; E78.5 Hyperlipidemia, unspecified
CPT/HCPCS: 36415; 80053; 80061; 84443; 85025

== ENCOUNTER → 2018-11-16 08:30 | Outpatient (CLI) | payer MEDICARE, SELFPAY ==
[2018-11-16 12:16] LABS: Absolute Lymphocyte Count 1.37 X10^3/ul (0.83-4.51); Absolute Neutrophil Count 1.9 X10^3/uL (2.0-7.7); Basophil# 0.04 X10^3/uL; Eosinophils% 7.5 % (0-5); Hematocrit 37.4 % (37-47); Lymphocyte # 1.37 X10^3/ul (4.0); Lymphocyte % 34.2 % (19-41); Mean Corp Hgb Conc 32.1 g/gl (32-36); Mean Corpuscular Hgb 30.3 pg (27.0-32.0); Mean Corpuscular Volume 94.4 fL (81-99); Mean Platelet Vol. 9.9 fl (6.2-12.0); Monocyte# 0.44 X10^3/uL; Neutrophil # 1.85 X10^3/uL (2.7-7.7); Neutrophil % 46.1 % (47-70); Platelet Count 210 K/mm3 (150-450); RBC Distribution Width CV 12.4 % (11.6-14.6); RBC Distribution Width SD 42.2 fl (35.1-43.9); Red Blood Count 3.96 M/mm3 (4.2-5.4)
[2018-11-16 12:27] LABS: POSITIVE COUNT NO; POSITIVE DIFFERENTIAL NO; POSITIVE MORPHOLOGY NO
[2018-11-16 12:31] LABS: ALB/GLOB Ratio 1.1 RATIO (0.9-2.4); AST(SGOT) 17 U/L (15-37); Alanine Aminotransfer ALT/SGPT 22 U/L (13-56); Albumin, Serum 3.9 g/dL (3.2-5.0); Alkaline Phosphatase 88 U/L (45-117); Anion Gap 8 (5-15); BUN 21 mg/dL (7-18); BUN/Creat Ratio 14.7 RATIO (10-20); Calcium,Total 9.1 mg/dL (8.5-10.1); Chloride 104 mmol/L (98-107); Creatinine, Serum 1.43 mg/dL (0.55-1.02); EST Glomerular Filtration Rate 38 mL/min (>60); Est Glom Filt Rate - Afr Amer 46 mL/min (>60); Globulin 3.6 g/dL (2.2-4.2); Glucose 88 mg/dL (74-106); Potassium 3.9 mmol/L (3.5-5.1); Protein, Total 7.5 g/dL (6.4-8.2); Sodium Level 139 mmol/L (136-145); Thyroid Stim Hormone (TSH) 2.42 uIU/mL (0.358-3.74)
--- OUTSIDE RECORDS SUMMARY | 2019-01-18 15:49 | XMS RPT_ITS ---
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 Community disorder, single Hospital episode, Repository unspecified / F32.9(ICD-10) 11/16/2018 Unknown N18.9 - Chronic Mahendra Brown Active [place] kidney disease, Community unspecified / Hospital N18.9(ICD-10) Repository PROCEDURES PROCEDURES No Procedure Records FoundRESULTS RESULTS CBC W/DIFF, AUTOMATED Collected: 11/16/2018 Status: F Source: [facility] 8:36 AM [facility] REPOSITORY TYPE CODE TESTS RESULT OUT OF RANGE REFERENCE UNITS LAB L100.1000 4.4-11.0 K/mm3 Low WBC 4.0 LAB L100.1200 4.2-5.4 M/mm3 Low RBC 3.96 LAB L100.1300 12.0-15.0 g/dl Normal HGB 12.0 LAB L100.1400 37-47 % Normal HCT 37.4 LAB L100.1500 81-99 fL Normal MCV 94.4 LAB L100.1600 27.0-32.0 pg Normal MCH 30.3 LAB L100.1700 32-36 g/gl Normal MCHC 32.1 LAB L100.1810 11.6-14.6 % Normal RDW CV 12.4 LAB L100.1820 35.1-43.9 fl Normal RDW SD 42.2 LAB L100.1900 150-450 K/mm3 Normal PLT 210 LAB L100.2000 6.2-12.0 fl Normal MPV 9.9 LAB L100.2100 47-70 % Low NEUT% 46.1 LAB L100.2200 19-41 % Normal LY% 34.2 LAB L100.2300 0-10 % High MONO% 11.0 LAB L100.2400 0-5 % High EO% 7.5 LAB L100.2500 0-1 % Normal BASO% 1.0 LAB L100.2550 0.0-0.9 % Normal IM GRAN % 0.200 Result Comment: IG% - Immature Granulocytes (promyelocytes, myelocytes and metamyelocytes) > 1% indicates that a LEFT SHIFT is Present. LAB L100.2620 2.0-7.7 X10 3/uL Low Absolute Neut 1.9 LAB L100.2720 0.83-4.51 X10 3/ul Normal Absolute Lymph 1.37 Performed By: #### L100.0100 #### [facility] [address] [place], [address] COMPREHENSIVE METABOLIC Collected: 11/16/2018 Status: F Source: [facility] 8:[address] [facility] REPOSITORY TYPE CODE TESTS RESULT OUT OF RANGE REFERENCE UNITS LAB L501.0100 74-106 mg/dL Normal GLU 88 Result Comment: Please note revised GLUCOSE reference range effective 2017. LAB L501.1000 7-18 mg/dL High BUN 21 LAB L501.1100 0.55-1.02 mg/dL High CREAT,SERUM 1.43 Result Comment: The validity of the calculated GFR AND GFRAA in patients over 70 years has not been determined. Clinical correlation is essential. LAB L501.1110 >60 mL/min Low EST GFR 38 Result Comment: Non- GFR Calc LAB L501.1115 >60 mL/min Low EST GFR - AA 46 Result Comment: GFR Calc LAB L501.1300 10-20 RATIO Normal BUN/CRE 14.7 LAB L501.1500 6.4-8.2 g/dL T Normal PROT 7.5 LAB L501.1800 3.2-5.0 g/dL Normal ALB 3.9 LAB L501.1950 2.2-4.2 g/dL Normal GLOB 3.6 LAB L501.2000 0.9-2.4 RATIO Normal A/G 1.1 LAB L501.2200 8.5-10.1 mg/dL CA Normal 9.1 LAB L501.4100 15-37 U/L Normal AST 17 LAB L501.4305 45-117 U/L Normal ALK P 88 LAB L501.4405 13-56 U/L Normal ALT 22 LAB L501.4600 0.20-1.00 mg/dL T Normal BILI 0.40 LAB L501.5300 136-145 mmol/L NA Normal 139 LAB L501.5600 3.5-5.1 mmol/L K Normal 3.9 LAB L501.5900 98-107 mmol/L CL Normal 104 LAB L501.6100 21.0-32.0 mmol/L Normal CO2 27.0 LAB L501.6200 5-15 Normal GAP 8 Performed By: #### L500.4050, L501.9520 #### [facility] [address] [facility] [place], [place], [address] THYROID STIM HORMONE Collected: 11/16/2018 Status: F Source: [facility] (TSH) 8:[address] [facility] REPOSITORY TYPE CODE TESTS RESULT OUT OF RANGE REFERENCE UNITS LAB L501.9520 0.358-3.74 uIU/mL Normal TSH 2.42 Performed By: #### L500.4050, L501.9520 #### [facility] [address] [place], [address] ALLERGIES ALLERGIES DATE TYPE / CODE NAME / CODE REACTION SEVERITY SOURCE 01/27/2017 Drug No Known Unknown [facility] Allergy/4160 Allergies/F00 Hospital 22922(SNOMED 5330271(RXNOR Repository CT) M) ENCOUNTERS ENCOUNTERS ADMIT/DISCHARGE ACCOUNT ADMITTING ENCOUNTER LOCATION SOURCE NUMBER CLASS 11/16/2018 [id number] Ambulatory [facility] ing:BFHLAB Repository PAYERS PAYERS ENCOUNTER GUARANTOR PAYER SUBSCRIBER SOURCE 11/16/2018 MOISÉS Primary MOISÉS [facility] [id number] STATE Insurance:HUMANA YEATERDOB: Community [address] MEDICARE [facility] [id number]: Repository [address]Wej: [phone]) [id number] [phone] () Date:6088-50-73[address] [address], [place] [address]UN: 11/16/2018 Secondary NOT GIVENUNK [facility] Insurance:SELF PAY [facility] Number: Effective Repository Date:2018-11-16
== END ==
PROVIDERS: Family Provider Family Medicine; PCP Family Medicine; Visit Provider Family Medicine
DX: I12.9 Hypertensive chronic kidney disease with stage 1 through stage 4 chronic kidney disease, or unspecified chronic kidney disease (principal); N18.9 Chronic kidney disease, unspecified; E78.5 Hyperlipidemia, unspecified; F32.9 Major depressive disorder, single episode, unspecified
CPT/HCPCS: 36415; 80053; 84443; 85025

== ENCOUNTER → 2019-03-16 | Outpatient (CLI) | payer MEDICARE, SELFPAY ==
[2017-02-03 15:55] VITALS: BMI 32.1
--- NOTE | 2019-03-16 13:26 | RAD_ITS ---
STUDY: X-RAY - LUMBAR SPINE REASON FOR EXAM: Female, 73 years old. Acute low back pain TECHNIQUE: 5 view(s) of the lumbar spine were obtained. COMPARISON: None FINDINGS: There is straightening of the normal lumbar lordosis. There is no substantial scoliosis. There is a lumbarized S1 vertebral body. There is anatomic alignment from L1 to L3. There is 3 4 mm of posterior subluxation of L4 on L3 and another 2 to 3 mm of posterior subluxation of L5 on L4. L5 and S1 align anatomically. There is been previous pedicle screw fusion surgery with laminectomy at L3-L4 and L5. There is multilevel endplate spondylosis of the lumbar vertebrae. There is multi-level degenerative disc disease with multi-level disc space narrowing. There is no demonstrated fracture. There is atherosclerotic calcification of the abdominal aorta without a demonstrated aneurysm. RAD/L/S Spine Min 4 Views IMPRESSION: Post surgical and degenerative changes described, no demonstrated fracture or suspicious osseous lesion Electronically Signed: Catarino Cruz MD at 17:05 EDT , Service support ,
--- NOTE | 2019-03-16 13:26 | RAD_ITS ---
STUDY: X-RAY - THORACIC SPINE REASON FOR EXAM: Female, 73 years old. Acute mid back pain TECHNIQUE: 2 view(s) of the thoracic spine were obtained. COMPARISON: None. FINDINGS: Normal kyphosis of the thoracic spine. There is no substantial scoliosis. There is multilevel endplate spondylosis of the thoracic vertebrae. There is multilevel disc space narrowing of the thoracic spine. The soft tissue structures are unremarkable. RAD/Thoracic Spine 2 Views IMPRESSION: Degenerative changes Electronically Signed: Catarino Cruz MD at 14:33 EDT , Service support ,
== END | disposition home or self-care (01) ==
LOC: MTRAD 13:25
PROVIDERS: Family Provider Family Medicine; PCP Family Medicine; Referring Provider Family Medicine; Visit Provider Family Medicine
DX: M54.6 Pain in thoracic spine (principal); M54.5 Low back pain
CPT/HCPCS: 72070; 72110

== ENCOUNTER → 2019-05-21 | Outpatient (CLI) | payer MEDICARE, SELFPAY ==
[2019-05-21 12:26] LABS: Absolute Lymphocyte Count 1.26 X10^3/uL (0.83-4.51); Absolute Neutrophil Count 1.8 X10^3/uL (2.0-7.7); Basophil# 0.06 X10^3/uL; Basophil% 1.5 % (0-1); Eosinophil# 0.33 X10^3/uL; Eosinophils% 8.4 % (0-5); Hematocrit 34.5 % (37-47); Hemoglobin 11.3 g/dL (12.0-15.0); Lymphocyte # 1.26 X10^3/ul (4.0); Lymphocyte % 32.2 % (19-41); Mean Corp Hgb Conc 32.8 g/dL (32-36); Mean Corpuscular Hgb 31.1 pg (27.0-32.0); Mean Platelet Vol. 10.1 fl (6.2-12.0); Monocyte# 0.46 X10^3/uL; Monocyte% 11.8 % (0-10); NRBC Flagged by Analyzer 0 % (0-5); Neutrophil # 1.78 X10^3/uL (2.7-7.7); Neutrophil % 45.6 % (47-70); Platelet Count 195 K/mm3 (150-450); RBC Distribution Width CV 12.4 % (11.6-14.6); RBC Distribution Width SD 43.3 fl (35.1-43.9); Red Blood Count 3.63 M/mm3 (4.2-5.4); White Blood Count 3.9 K/mm3 (4.4-11.0)
[2019-05-21 13:05] LABS: Vitamin B12 1168 pg/mL (211-911)
[2019-05-21 13:15] LABS: ALB/GLOB Ratio 1.1 RATIO (0.9-2.4); AST(SGOT) 16 U/L (15-37); Alanine Aminotransfer ALT/SGPT 18 U/L (13-56); Albumin, Serum 3.7 g/dL (3.2-5.0); Alkaline Phosphatase 101 U/L (45-117); Anion Gap 4 (5-15); BUN 17 mg/dL (7-18); BUN/Creat Ratio 10.6 RATIO (10-20); Calcium,Total 9.1 mg/dL (8.5-10.1); Chloride 106 mmol/L (98-107); Creatinine, Serum 1.61 mg/dL (0.55-1.02); EST Glomerular Filtration Rate 33 mL/min (>60); Est Glom Filt Rate - Afr Amer 40 mL/min (>60); Globulin 3.5 g/dL (2.2-4.2); Glucose 110 mg/dL (74-106); Potassium 4.3 mmol/L (3.5-5.1); Protein, Total 7.2 g/dL (6.4-8.2); Sodium Level 138 mmol/L (136-145); T4 Free Direct 1.01 ng/dL (0.76-1.46); Thyroid Stim Hormone (TSH) 2.17 uIU/mL (0.358-3.74)
== END | disposition home or self-care (01) ==
LOC: BFHLAB 10:33
PROVIDERS: Family Provider Family Medicine; PCP Family Medicine; Visit Provider Family Medicine
DX: I10 Essential (primary) hypertension (principal); R41.89 Other symptoms and signs involving cognitive functions and awareness; E78.5 Hyperlipidemia, unspecified; F32.9 Major depressive disorder, single episode, unspecified
CPT/HCPCS: 36415; 80053; 82607; 84439; 84443; 85025

== ENCOUNTER → 2019-06-16 | Outpatient (CLI) | payer MEDICARE, SELFPAY ==
[2017-02-03 15:55] VITALS: BMI 32.1
[2019-06-16 12:41] LABS: Anion Gap 6 (5-15); BUN 25 mg/dL (7-18); BUN/Creat Ratio 16.1 RATIO (10-20); Calcium,Total 9.3 mg/dL (8.5-10.1); Chloride 104 mmol/L (98-107); Creatinine, Serum 1.55 mg/dL (0.55-1.02); EST Glomerular Filtration Rate 35 mL/min (>60); Est Glom Filt Rate - Afr Amer 42 mL/min (>60); Glucose 96 mg/dL (74-106); Potassium 4.9 mmol/L (3.5-5.1); Sodium Level 139 mmol/L (136-145)
== END | disposition home or self-care (01) ==
LOC: BFHLAB 09:26
PROVIDERS: Family Provider Family Medicine; PCP Family Medicine; Visit Provider Family Medicine
DX: N18.9 Chronic kidney disease, unspecified (principal)
CPT/HCPCS: 36415; 80048

== ENCOUNTER 2019-08-31 10:38 | Inpatient (IN) | payer MEDICARE, SELFPAY ==
[2019-08-31] VITALS (13 sets, daily range): BP systolic 141–166; BP diastolic 66–100; PULSE 71–105; RESP 16–22; TEMP 36.5–36.7; O2SAT 95–100; BMI 32.9
--- NOTE | 2019-08-31 10:51 | EKG12_ITS ---
Test Reason : GEN ILLNESS Blood Pressure : / mmHG Vent. Rate : 092 BPM Atrial Rate : 092 BPM P-R Int : 158 ms QRS Dur : 088 ms QT Int : 366 ms P-R-T Axes : 043 014 060 degrees QTc Int : 452 ms Normal sinus rhythm Septal infarct , age undetermined Abnormal ECG Confirmed by JANETTE ROMANO, MIGUEL ([id number]), movie editor ZEV SARAH ([id number]) on 09/07/2019 1:59:57 PM Referred By: Jelly Campbell Confirmed By:MIGUEL SAVAGE MD
--- NOTE | 2019-08-31 10:53 | ED.VIS.GEN ---
History of Present Illness Chief Complaint: General Illness Informant: Patient Onset: Days - 3 Context: Gradual Onset Narrative: Patient is presenting with progressive dyspnea on exertion, she feels like she gets very short of breath after she walks a certain distance. This started 3 days ago and apparently is progressing. She has no chest pain or back pain she has no pleuritic component. She has no lower extremity edema. She has no abdominal pain. She does not have a headache she does not feel lightheaded she has no vision changes. She has no DVT or PE risk factors. No urinary symptoms. Past Medical History - Allergies and Home Meds Allergies/Adverse Reactions: Allergies No Known Allergies Allergy (Verified 08/31/19 10:42) Primary Care Physician: Mahendra Brown MD [Primary Care Provider] - Past Medical History: - - Reviewed overall unremarkable Smoking Status: Never smoker Review of Systems All systems negative except as indicated General: Denies: Fever, Sweats Eyes: Denies: Visual changes - bilaterally Cardiovascular: Denies: Chest pain, Palpitations, Heart racing Respiratory: Denies: Cough, Dyspnea on exertion Gastrointestinal: Denies: Abdominal pain, Nausea Musculoskeletal: Denies: Myalgias, Arthralgias Neurological: Reports: Weakness. Denies: Headache Hematologic: Denies: Easy bruising Physical Exam Vital Signs/Narrative: Vital Signs Temp Pulse Resp BP Pulse Ox 08/31/19 10:39 98 F 105 H 22 H 142/83 H 100 General: Well nourished, - - She is lying comfortably on her bed. Head: Normocephalic Eyes: Perrl ENT: Moist mucous membranes, No rhinorrhea Cardiovascular: Regular rate, Regular rhythm Respiratory: No distress, CTA bilaterally Abdomen: Soft, Nontender, Nondistended Back: Nontender, Normal Inspection Extremities: Nontender, No edema Skin: Normal color, No rash Neurological: Alert, Oriented x3 Psychological: Normal affect, Normal Mood Diagnostic/Tx/Re-eval - Rhythm Strip Rhythm Strip: Sinus Rhythm Rate: 92 Ectopy: None - EKG Initial EKG Interpretation: Sinus Rhythm, - - Rate 92. Normal HI and QTc intervals. No ischemic changes. Interpreted by emergency doctor - Medical Decision Making Patient has a normal ED work-up, she has elevated TSH, however I cannot rule out an anginal equivalent, she tells me she walks across the room and she gets weak and very short of breath. She has a strong family history of cardiac disease. I will admit her for observation for cardiac work-up. ED Disposition - Plan for ED Patient: Disposition: Acute Care Hospital [facility] Diagnosis: Exertional dyspnea
[2019-08-31] MEDS: Aspirin 81 MG TAB.CHEW 324 MG PO (11:00)
--- NOTE | 2019-08-31 11:00 | RAD_ITS ---
STUDY: X-RAY CHEST REASON FOR EXAM: Female, 74 years old. Chest pain and shortness of breath. TECHNIQUE: Single AP portable view of the chest. COMPARISON: None. FINDINGS: EKG electrodes are seen. Hyperinflation. Scattered calcified granulomas. There is no demonstrated pleural abnormality. Normal size heart. Normal mediastinum and eelazar. Normal visualized pulmonary arteries. There is atherosclerotic calcification of the aortic arch with tortuosity. Normal visualized thoracic spine. Normal visualized ribs, clavicles, and shoulders. There is no demonstrated abnormality of the visualized soft tissue structures of the upper abdomen. RAD/Chest 1 View (Portable) IMPRESSION: Hyperinflation. No acute abnormality is seen. Electronically Signed: Nhan Anderson, at 11:12 EST , Service support ,
[2019-08-31 11:12] LABS: Absolute Neutrophil Count 4.5 X10^3/uL (2.0-7.7); Basophil# 0.04 X10^3/uL; Basophil% 0.5 % (0-1); Eosinophil# 0.16 X10^3/uL; Eosinophils% 2.1 % (0-5); Hemoglobin 13.2 g/dL (12.0-15.0); Lymphocyte % 26.5 % (19-41); Mean Corp Hgb Conc 33.8 g/dL (32-36); Mean Corpuscular Hgb 31.7 pg (27.0-32.0); Mean Corpuscular Volume 93.8 fL (81-99); Mean Platelet Vol. 9.3 fl (6.2-12.0); Monocyte# 0.79 X10^3/uL; Monocyte% 10.5 % (0-10); NRBC Flagged by Analyzer 0 % (0-5); Neutrophil # 4.52 X10^3/uL (2.7-7.7); Neutrophil % 59.9 % (47-70); Platelet Count 261 K/mm3 (150-450); RBC Distribution Width CV 11.9 % (11.6-14.6); RBC Distribution Width SD 40.5 fl (35.1-43.9); Red Blood Count 4.16 M/mm3 (4.2-5.4); White Blood Count 7.6 K/mm3 (4.4-11.0)
[2019-08-31 11:29] LABS: Anion Gap 6 (5-15); BUN 21 mg/dL (7-18); BUN/Creat Ratio 14.4 RATIO (10-20); Calcium,Total 9.5 mg/dL (8.5-10.1); Chloride 103 mmol/L (98-107); Creatinine, Serum 1.46 mg/dL (0.55-1.02); EST Glomerular Filtration Rate 37 mL/min (>60); Est Glom Filt Rate - Afr Amer 45 mL/min (>60); Estimated Creatinine Clearance 30.69 ml/min; Glucose 110 mg/dL (74-106); Potassium 3.5 mmol/L (3.5-5.1); Sodium Level 137 mmol/L (136-145); Thyroid Stim Hormone (TSH) 6.34 uIU/mL (0.358-3.74)
[2019-08-31 11:30] LABS: Mucous, Urine 0 SEEN /hpf (<or=2+); Red Blood Cells-Urine 0 SEEN /hpf (0-5); Squamous Epithelial Cells - UA 0 SEEN /hpf (5-10)
[2019-08-31 11:33] LABS: Color, Urine Yellow (Yellow); Glucose, Dipstick Normal (Normal); Ketone-Dipstick Negative (Negative); Leukocyte Esterase-Dipstick 100 /ul (Negative); Nitrite-Dipstick Negative (Negative); Occult Blood-Urine 50 /ul (Negative); Protein-Dipstick Negative (Negative); Urine Bilirubin Dipstick Negative (Negative); Urine Clarity Cloudy (Clear); Urine Urobilinogen Normal (Normal)
[2019-08-31 11:40] LABS: Bacteria 3+ /hpf (None Seen); White Blood Cells 0-5 SEEN /hpf (0-5)
[2019-08-31 11:41] LABS: BNP,B-Type NATRIURETIC PEPTIDE 3.2 pg/mL (0-100)
--- NOTE | 2019-08-31 15:45 | EKG12_ITS ---
Test Reason : DYSRHYTHMIA Blood Pressure : / mmHG Vent. Rate : 077 BPM Atrial Rate : 077 BPM P-R Int : 186 ms QRS Dur : 080 ms QT Int : 384 ms P-R-T Axes : 060 028 048 degrees QTc Int : 434 ms Normal sinus rhythm Normal ECG When compared with ECG of 31-AUG-2019 11:12, MANUAL COMPARISON REQUIRED, DATA IS UNCONFIRMED Confirmed by JANETTE ROMANO, MIGUEL ([id number]), book or script editor ZEV SARAH ([id number]) on 09/07/2019 3:15:42 PM Referred By: Jelly Campbell Confirmed By:MIGUEL SAVAGE MD
--- NOTE | 2019-08-31 15:45 | ECHOD_ITS ---
Reason For Study: DYSPNEA/SOB Procedure This was a 2D Doppler, Color Flow transthoracic echocardiogram. Exam performed portable in patient room. Left Ventricle Normal LV size. Concentric left ventricular hypertrophy. The estimated ejection fraction is 65 %. Normal diastology for age. No regional wall motion abnormalities noted. Right Ventricle Normal RV size. Normal systolic function. Atria Normal left atrium. Normal right atrium. No doppler evidence for ASD. Mitral Valve There is no mitral valve stenosis. Trivial mitral valve insufficiency. Tricuspid Valve There is no tricuspid stenosis. Trivial tricuspid valve insufficiency. Pulmonary artery systolic pressure is 35 mmHg. Aortic Valve Aortic sclerosis, no stenosis. There is no aortic stenosis. No aortic valve insufficiency. Pulmonic Valve There is no pulmonic valvular stenosis. No pulmonic valve insufficiency. Great Vessels Normal aortic root. Pericardium/Pleural No pericardial effusion. MMode/2D Measurements & Calculations LVIDd: 2.9 cm IVSd: 1.3 cm Ao root diam: 3.1 cm LVIDs: 1.9 cm LVPWd: 1.3 cm RVDd: 3.1 cm FS: 35.1 % LAV(MOD-bp): 19.4 ml LVAd ap4: 22.7 cm2 SV(MOD-sp4): 40.3 ml LAV(MOD-bp) Indexed: 9.6 ml/m2 EDV(MOD-sp4): 62.2 ml LAV(MOD-sp2): 19.3 ml EDV(sp4-el): 64.9 ml LAV(MOD-sp4): 18.3 ml LVAs ap4: 12.5 cm2 ESV(MOD-sp4): 21.9 ml ESV(sp4-el): 22.3 ml EF(MOD-sp4): 64.8 % EF(sp4-el): 65.6 % SV(sp4-el): 42.6 ml LA A4 area: 9.4 cm2 LA dimension(2D): 2.7 cm RA A4 area: 9.3 cm2 Time Measurements MV dec time: 0.29 sec Doppler Measurements & Calculations MV E max endy: 72.1 cm/sec Lat Peak E' Endy: 6.6 cm/sec Med Peak E' Endy: 9.8 cm/sec MV A max endy: 107.8 cm/sec E/E' lat: 11.0 E/E' med: 7.3 MV E/A: 0.67 Ao V2 max: 129.3 cm/sec LV V1 max: 111.5 cm/sec PA V2 max: 109.8 cm/sec Ao max P.7 mmHg LV V1 max P.0 mmHg TR max endy: 255.6 cm/sec TR max P.1 mmHg Interpretation Summary The estimated ejection fraction is 65 %. Normal diastology for age. Concentric left ventricular hypertrophy. Trivial mitral valve insufficiency. Ordering Physician: Jelly Campbell Referring Physician: MORALES VALLES Performed By: Alice Calzada RDCS
--- NOTE | 2019-08-31 15:49 | CT_ITS ---
We are attempting to reach an attending provider to discuss findings. An addendum with communication details will be sent when the communication is complete. STUDY: CTA CHEST REASON FOR EXAM: Female, 74 years old. Shortness of Breath RADIATION DOSAGE (If Supplied By Facility): CTDIvol = ( 12.32 ) mGy, DLP = ( 511.56 ) mGycm TECHNIQUE: The examination was performed with the intravenous administration of IV 100mL [id number]-370 100. Post-processing of the angiographic images was performed, with multiplanar reformation and 3D reconstruction. Individualized dose optimization techniques were used for this CT. COMPARISON: 08/31 2019 chest x-ray FINDINGS: Normal enhancement of the main pulmonary artery and right and left pulmonary arteries. There is a focal thrombus within the proximal right middle lobe branch. . May be trace subsegmental thrombus within the left lower lobe versus artifact. There is mild atherosclerotic calcification of the aortic arch with tortuosity. There is no demonstrated aortic dissection. Normal heart and pericardium. Normal mediastinum. Normal hilar regions. Normal visualized trachea and bronchi. There is minimal lower lobe atelectasis. There is a small focus of groundglass opacity in the lingula. Normal pleura. Normal chest wall structures. There are degenerative changes of thoracic spine. Is a well-circumscribed low attenuation within the left hepatic lobe measuring 1.2 cm. Is moderate stool in the colon. There is atherosclerotic disease of the suprarenal aorta. There is a small hiatal hernia. This partially visualized spinal fusion. CT/CTA Chest W/WO Contrast IMPRESSION: Findings are positive for pulmonary embolism involving the right middle lobe branches. Possible subtle subsegmental branch PTE left lower lobe. Lower lobe atelectasis possible lingular atelectasis and/or infiltrate. Hypodense focus within the liver likely represents a simple cyst could consider follow-up ultrasound. Small hiatal hernia. Electronically Signed: Raiza Wilkerson MD at 16:57 EST Tel , Service support ,
--- NOTE | 2019-08-31 15:50 | HP.PCM_ITS ---
Problem List (1) Hypertension Status: Chronic (2) Hyperlipidemia Status: Chronic (3) Chronic back pain Status: Chronic Qualifiers: Back pain location: low back pain (4) Radicular pain of right lower extremity Status: Chronic (5) Osteoarthritis Status: Chronic (6) Obesity (BMI 30-39.9) Status: Chronic (7) Chronic renal failure, stage 3 (moderate) Status: Chronic (8) Elevated TSH Status: Acute (9) Near syncope Status: Acute (10) Heart murmur Status: Acute (11) Sleep apnea Status: Chronic (12) Anxiety and depression Status: Chronic History of Present Illness Date of Admission: 08/31/19 Chief Complaint: increased fatigue and KAYE The patient is a 74 year old F with a past medical history of hypertension, hyperlipidemia, obstructive sleep apnea, anxiety/depression, chronic allergic rhinitis for which she takes shots, osteoarthritis and obesity who presented to the emergency department at [facility] on 08/31/2019 complaining of increased fatigue starting on 08/29/2019. Associated with the increased fatigue was dyspnea on exertion. She denied fever, chills, change in cough, chest pain, N/V/D/abd pain, orthopnea. She also told me that she has had a few episodes of near syncope. She gets very sweaty, feels lightheaded and has to lie down. She denies palpitations. She denies any hx of of atrial fibrillation or other cardiac dysrhythmias. He has had a stress test in the past but this was many years ago. Her father had coronary artery disease. She has been a lifelong non-smoker. Vital signs at presentation to the emergency department were temperature 98, pulse rate 105, blood pressure 142/83, respiratory rate 22 and she was 100% saturated on room air. CBC was unremarkable. BMP is remarkable for an elevated BUN at 21 with a creatinine of 1.46 and a estimated GFR of 37. This is within her baseline. TSH was mildly increased at 6.34. Troponin was less than 0.015. An AP chest showed hyperinflation with no acute abnormality. EKG showed normal sinus rhythm with a QS wave in lead V1 and V2 possibly secondary to anteroseptal infarct. This was also present on an old EKG from 2 years ago. There is no ST elevation and no suspicious ST or T wave changes. She is being admitted to a monitored bed on PCU and the chest pain protocol was initiated. Past Medical History Past Medical History (Chronic Problems): Chronic Problems Hypertension (Chronic) Hyperlipidemia (Chronic) Chronic back pain (Chronic) Radicular pain of right lower extremity (Chronic) Osteoarthritis (Chronic) Obesity (BMI 30-39.9) (Chronic) Chronic renal failure, stage 3 (moderate) (Chronic) Sleep apnea (Chronic) Anxiety and depression (Chronic) Allergies No Known Allergies Allergy (Verified 08/31/19 10:42) Home Medications: Ambulatory Orders Medication Instructions Recorded Citalopram [Celexa] 40 mg PO DAILY 01/27/17 Fish Oil/Dha/Epa [Fish Oil 1,200 1 each PO DAILY 01/27/17 mg Fish Oil] Losartan/Hydrochlorothiazide 1 each PO QHS 01/27/17 [Losartan-Hctz 50-12.5 mg Tab] Nortriptyline HCl [Pamelor] 50 mg PO QHS 01/27/17 Simvastatin [Zocor] 10 mg PO QHS 01/27/17 Vitamin E Acetate [Vitamin E] 1,000 unit PO DAILY 01/27/17 traMADol [Ultram (G)] 100 mg PO Q6H PRN PRN #90 tablet 02/05/17 Apixaban [Eliquis] 5 mg PO BID #74 tab 09/01/19 Surgical History: total hip arthroplasty - Left hip 02/03/2017, - - She has had 2 back surgeries. 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 She denies any family history of ovarian or breast cancers. Sibling History Items: - - She has a younger brother who of heart complications secondary to rheumatic fever Review of Systems Constitutional: Reports: Weakness, Fatigue. Denies: Chills, Fever, Weight Change Eyes: Denies: Redness, Vision Change HEENT: Reports: Nasal Congestion, Post Nasal Drip. Denies: Difficulty Swallowing, Head Aches, Sinus Congestion, Sinus Drainage Cardiovascular: Reports: - - Near syncope on more than 1 occasion. Denies: Chest Pain, Palpitations Respiratory: Reports: Shortness of Breath, Shortness of breath upon exertion. Denies: Cough, Hemoptysis, Pleuritic Pain, Shortness of breath at rest, Sputum production, Wheezing Gastrointestinal: Denies: Abdominal Pain, Nausea, Vomiting Genitourinary: Denies: Dysuria Gynecological: Denies: Breast symptoms, Vaginal discharge Musculoskeletal: Reports: Joint Tenderness. Denies: Joint Pain, Joint swelling Skin: Denies: Dryness, Jaundice, Rash, Wounds Neurological: Reports: - - She has paresthesias of the RLE lateral thigh and lateral knee.....feels like a bee buzzing. she sometimes also has burning pain in those areas. she also c/o difficulty maintaining her balance when she is not holding on to something. she has burning feet at night and this causes problems sleeping. Denies: Slurred speech, Focal weakness, Numbness, Tingling, Tremor, Seizures Psychiatric: Denies: Anxiety, Depression, Homicidal Ideations, Suicidal Ideations Endocrine: Denies: Change in Body Habitus Hematologic/ Lymphatic: Denies: Easy Bruising, Easy Bleeding, Hx of blood clot VTE Information - Inpt Only VTE Present on Admission: No VTE Mechan Device Prophylaxis: None VTE Pharm Prophylaxis ordered?: Yes Patient Problems: Active and Suspected Problems Exertional dyspnea (Acute) Elevated TSH (Acute) Near syncope (Acute) Heart murmur (Acute) - Physical Exam Vitals/I&O's: Vital Signs Temp Pulse Resp BP Pulse Ox 98.1 F 79 17 144/66 H 98 08/31/19 12:32 08/31/19 15:04 08/31/19 12:32 08/31/19 12:32 08/31/19 12:32 Oxygen Delivery Method Room Air Weight: 203 lb 14.841 oz Body Mass Index (BMI) 32.9 General: Alert, Oriented x3, Cooperative, No apparent distress, Well developed, Well nourished HEENT: Atraumatic, PERRLA, EOMI, Normocephalic Oral: Moist Mucosa, No Gingival or Mucosal Lesions/ Ulcerations Neck: Supple, No JVD, Negative Carotid Bruits, No Nodes, No Nuchal Rigidity, Trachea Midline Lungs: No wheeze, Rales - in both bases that do not resolve after several deep breaths, - - Symmetric chest expansion, no accessory muscle use, no conversational dyspnea, not tachypneic Cardiovascular: Regular rate, Regular Rhythm, Normal S1, Normal S2, Murmur - She has a short high pitched MM at the LLSB and the apex, 2/6 Abdomen: Bowel Sounds Present, Soft, Non Tender, Non-Distended, - - No abdominal bruits Extremities: No clubbing, No cyanosis, No edema, Peripheral Pulses Normal, Tenderness - R calf + jacob and a negative Ray's test Skin: No rashes, No breakdown Musculoskeletal: No Muscle Wasting Neurological: Cranial nerves II-XII grossly intact, Neuro grossly intact Psych/Mental Status: Normal Affect, Appropriate Laboratory Results 08/31/19 11:00: WBC 7.6, RBC 4.16 L, Hgb 13.2, Hct 39.0, MCV 93.8, MCH 31.7, MCHC 33.8, RDW Std Deviation 40.5, RDW Coeff of Joseph 11.9, Plt Count 261, MPV 9.3, Immature Gran % (Auto) 0.500, Neut % (Auto) 59.9, Lymph % (Auto) 26.5, Cherry % (Auto) 10.5 H, Eos % (Auto) 2.1, Baso % (Auto) 0.5, Absolute Neuts (auto) 4.5, Absolute Lymphs (auto) 2.00, Nucleated RBC % 0 08/31/19 11:00: Sodium 137, Potassium 3.5, Chloride 103, Carbon Dioxide 28.0, Anion Gap 6, BUN 21 H, Creatinine 1.46 H, Estim Creat Clear Calc 30.69, Est GFR (MDRD) Af Amer 45 L, Est GFR (MDRD) Non-Af 37 L, BUN/Creatinine Ratio 14.4, Glucose 110 H, Calcium 9.5, Magnesium 2.0, Troponin I < 0.015, TSH 6.34 H 08/31/19 11:00: B-Natriuretic Peptide 3.2 08/31/19 11:20: Urine Color Yellow, Urine Clarity Cloudy, Urine pH 7.0, Ur Specific [place] 1.010, Urine Protein Negative, Urine Glucose (UA) Normal, Urine Ketones Negative, Urine Occult Blood 50 H, Urine Nitrite Negative, Urine Bilirubin Negative, Urine Urobilinogen Normal, Ur Leukocyte Esterase 100 H, Urine RBC 0 SEEN, Urine WBC 0-5 SEEN, Ur Squamous Epith Cells 0 SEEN, Urine Bacteria 3+, Urine Mucus 0 SEEN Current Medications Sodium Chloride () 10 - 40 ml IV UD PRN PRN Reason: SALINE FLUSH Assessment/Plan All Active Problems Exertional dyspnea (Acute) Elevated TSH (Acute) Near syncope (Acute) Heart murmur (Acute) Impressions 1. KAYE - EKG unremarkable. Troponin negative. Continuous since Friday. R calf pain. CTA of the chest has been ordered. 2. episodic near syncope at home - not new. Etiology unclear. Suspect she may be having a dysrhythmia. If no evidence of this on telemetry in the hospital may consider sending home with a 30 day event monitor. 3. R calf pain - will get an venous US in the AM 4. Chronic renal failure stage III 5. Hypothyroidism-mildly increased TSH with a normal T4 6. heart MM over the apex - ECHO ordered. 7. Chronic diagnoses include: Hypertension/hyperlipidemia/chronic back pain/radicular pain of the right lower extremity/osteoarthritis/obesity/NATACHA on CPAP/anxiety/depression Code Visit OBSV E&M: 95773 Initial observation care L3
[2019-08-31 16:46] LABS: Magnesium 2.2 mg/dL (1.6-2.6); T4 Total, Thyroxin 8.3 ug/dL (4.8-13.9)
--- NOTE | 2019-08-31 17:20 | VDLE_ITS ---
Reason For Study: PULM EMBOLISM RIGHT LEFT GSV is normal. GSV is normal. CFV is compressible, spontaneous, phasic, CFV is compressible, spontaneous, phasic, competent and demonstrates normal competent, and demonstrates normal augmentation. augmentation. FV is compressible, spontaneous, phasic, FV is compressible, spontaneous, phasic, competent and demonstrates normal competent and demonstrates normal augmentation. augmentation. POP V is compressible, spontaneous, phasic, POP V is compressible, spontaneous, phasic, competent and demonstrates normal competent and demonstrates normal augmentation. augmentation. T/P Trunk is compressible. T/P Trunk is compressible. PTV is compressible. PTV is compressible. RT PerV is compressible. LT PerV is compressible. Procedure Exam performed portable in patient room. A preliminary report was called and/or faxed to [facility]. Interpretation Summary No evidence for acute deep venous thrombosis bilateral lower extremities with patent and compressible bilateral great saphenous veins. Ordering Physician: Jelly Campbell Referring Physician: MORALES VALLES Performed By: Marie Shine, RDCS, RVT
[2019-08-31] MEDS: Gabapentin 100 MG Capsule PO (17:29)
[2019-08-31] MEDS: Enoxaparin 100 MG/ML Syringe 90 MG SC (18:37)
[2019-08-31] MEDS: Ipratropium Bromide 0.06% NASAL SPRAY 2 SPRAY NASAL (21:32)
[2019-08-31] MEDS: Losartan Potassium 50 MG Tablet PO (21:32)
[2019-08-31] MEDS: Gabapentin 100 MG Capsule 200 MG PO (21:32)
[2019-08-31] MEDS: Nortriptyline 25 MG Capsule 50 MG PO (21:32)
[2019-08-31] MEDS: Atorvastatin Calcium 10 MG Tablet 5 MG PO (21:33)
[2019-08-31] MEDS: hydroCHLOROthiazide 12.5mg 12.5 MG PO (21:33)
[2019-09-01] VITALS (11 sets, daily range): BP systolic 103–157; BP diastolic 52–97; PULSE 75–97; RESP 16–20; TEMP 36.7–36.9; O2SAT 95–100
[2019-09-01 06:19] LABS: Cholesterol 202 mg/dL (200); High Density Lipoprotein 78 mg/dL; Triglycerides 66 mg/dL; Very Low Density Lipoprotein 13 mg/dL (5-40)
[2019-09-01] MEDS: Ipratropium Bromide 0.06% NASAL SPRAY 2 SPRAY NASAL (06:59)
[2019-09-01] MEDS: Enoxaparin 100 MG/ML Syringe 90 MG SC ×2 (06:59→17:42)
[2019-09-01] MEDS: Vitamin E 400 UNITS Capsule 800 UNITS PO (09:43)
[2019-09-01] MEDS: Citalopram 40 MG TABLET PO (09:43)
[2019-09-01] MEDS: Gabapentin 100 MG Capsule PO ×2 (09:43→17:42)
[2019-09-01] MEDS: Aspirin 81 MG TAB.CHEW PO (09:43)
--- NOTE | 2019-09-01 13:45 | CASEMGMT ---
This RN CM to room with ALTMAN form at this time, explanation done-pt voice understanding, and signed ALTMAN form at this time. Original to chart and copy to pt at this time. Pt/ voice no further questions/concerns/needs at this time. Pt does have a copy of the CMS IP vs OBS at bedside. [place] ANTHONY REY
[2019-09-01] MEDS: Losartan Potassium 50 MG Tablet PO (21:17)
[2019-09-01] MEDS: hydroCHLOROthiazide 12.5mg 12.5 MG PO (21:17)
[2019-09-01] MEDS: Nortriptyline 25 MG Capsule 50 MG PO (21:18)
[2019-09-01] MEDS: Atorvastatin Calcium 10 MG Tablet 5 MG PO (21:18)
[2019-09-01] MEDS: Gabapentin 100 MG Capsule 200 MG PO (21:19)
[2019-09-01] MEDS: traMADol 50 MG Tablet 100 MG PO (21:19)
[2019-09-02] VITALS (9 sets, daily range): BP systolic 129–160; BP diastolic 45–70; PULSE 41–92; RESP 12–16; TEMP 36.4–36.6; O2SAT 96–100
--- NOTE | 2019-09-02 03:27 | CT_ITS ---
STUDY: CT BRAIN WITHOUT CONTRAST REASON FOR EXAM: Female, 74 years old. Altered level of consciousness, possible seizures. RADIATION DOSAGE (If Supplied By Facility): CTDIvol = ( 44.99 ) mGy, DLP = ( 812.98 ) mGycm TECHNIQUE: Transaxial CT imaging of the brain was performed without administration of intravenous contrast material. Individualized dose optimization techniques were used for this CT. COMPARISON: No relevant priors. FINDINGS: Normal soft tissue structures. Normal calvarium. There is mild cerebral atrophy with widening of the extra-axial spaces and ventricular dilatation. There are areas of decreased attenuation within the white matter tracts of the supratentorial brain, consistent with microvascular disease changes. Normal basal ganglia and thalami. Normal brainstem. Normal cerebellum. There is no intracranial hemorrhage. There are no findings of an acute ischemic infarction. Normal visualized paranasal sinuses. CT/Brain/Head without Contrast IMPRESSION: Mild generalized brain atrophy along with microangiopathic white matter disease. No acute intracranial hemorrhage or space-occupying lesion. Electronically Signed: Flower Solorio MD at 4:12 EST , Service support ,
[2019-09-02 03:31] LABS: Bedside Glucose 123 mg/dL (70-110)
--- NOTE | 2019-09-02 04:05 | PCM.RRT.BLA ---
Rapid Response Note - Blank Patient with pulmonary embolism was found to be unresponsive by nursing staff. Per nursing staff patient was twitching; was staring and was noted to be incontinent of urine. Next report that at baseline patient is continent. Episode occurred while patient was on her BiPAP. Nurse reported that telemetry at that time showed sinus bradycardia. Also patient had an episode of bigeminy. Rapid response was called. On examination patient was initially obtunded. S1-S2 present no murmur gallop or rub. Lung sounds was clear to auscultate but decreased at right base. Abdomen showed normal bowel sounds. Extremities showed no edema. EKG showed sinus rhythm septal infarct (V1 V2 with Q waves; unchanged from previous). Review of telemetry strips showed probable junctional rhythm; also telemetry showed episodes of a pulse of about 3 seconds. Stat EKG showed sinus rhythm septal infarct. Different diagnoses include dysrhythmia leading to unresponsiveness. It is unclear whether patient had a seizure leading to bradycardia and unresponsiveness. However patient became a little bit interactive. She was able to stick her tongue out. However she did not follow commands to raise extremities. Stat CT head without contrast ordered. Investigation for seizure: EEG; prolactin; CPK level ordered. Keppra thousand milligrams IV x1 ordered and Keppra 500 mg twice daily. Will consult neurologist. Will consult cardiology. Start CBC; BMP and troponin ordered. Interval History and results Report of patient's is coming back around. CT of the head was unremarkable.
--- NOTE | 2019-09-02 04:07 | EKG12_ITS ---
Test Reason : DYSRHYTHMIA Blood Pressure : / mmHG Vent. Rate : 087 BPM Atrial Rate : 087 BPM P-R Int : 198 ms QRS Dur : 084 ms QT Int : 398 ms P-R-T Axes : 080 060 068 degrees QTc Int : 478 ms Normal sinus rhythm Septal infarct , age undetermined Abnormal ECG When compared with ECG of 31-AUG-2019 19:00, MANUAL COMPARISON REQUIRED, DATA IS UNCONFIRMED Confirmed by JANETTE ROMANO, MIGUEL ([id number]), editor managing director ZEV SARAH ([id number]) on 09/07/2019 3:21:20 PM Referred By: Jelly Campbell Confirmed By:MIGUEL SAVAGE MD
[2019-09-02 04:22] LABS: Absolute Lymphocyte Count 2.71 X10^3/uL (0.83-4.51); Basophil# 0.04 X10^3/uL; Basophil% 0.6 % (0-1); Eosinophil# 0.19 X10^3/uL; Eosinophils% 2.9 % (0-5); Hematocrit 36.6 % (37-47); Hemoglobin 11.9 g/dL (12.0-15.0); Lymphocyte # 2.71 X10^3/ul (4.0); Lymphocyte % 41.7 % (19-41); Mean Corp Hgb Conc 32.5 g/dL (32-36); Mean Corpuscular Hgb 30.6 pg (27.0-32.0); Mean Corpuscular Volume 94.1 fL (81-99); Mean Platelet Vol. 9.1 fl (6.2-12.0); Monocyte# 0.58 X10^3/uL; Monocyte% 8.9 % (0-10); NRBC Flagged by Analyzer 0 % (0-5); Neutrophil # 2.96 X10^3/uL (2.7-7.7); Neutrophil % 45.6 % (47-70); Platelet Count 232 K/mm3 (150-450); RBC Distribution Width CV 11.9 % (11.6-14.6); RBC Distribution Width SD 40.6 fl (35.1-43.9); Red Blood Count 3.89 M/mm3 (4.2-5.4); White Blood Count 6.5 K/mm3 (4.4-11.0)
[2019-09-02] MEDS: 0.9% Saline Lock 10 ML Syringe IV (04:36)
[2019-09-02] MEDS: levETIRAcetam IV 1,000 MG/100 ML BAG 400 MG IV (04:39)
[2019-09-02 04:43] LABS: Anion Gap 10 (5-15); BUN 32 mg/dL (7-18); BUN/Creat Ratio 21.3 RATIO (10-20); CPK Total, Creatine Kinase 57 U/L (26-192); Calcium,Total 8.6 mg/dL (8.5-10.1); Chloride 102 mmol/L (98-107); EST Glomerular Filtration Rate 36 mL/min (>60); Est Glom Filt Rate - Afr Amer 43 mL/min (>60); Estimated Creatinine Clearance 29.87 ml/min; Glucose 146 mg/dL (74-106); Potassium 3.5 mmol/L (3.5-5.1); Prolactin 102.9 ng/mL; Sodium Level 137 mmol/L (136-145)
[2019-09-02] MEDS: Enoxaparin 100 MG/ML Syringe 90 MG SC ×2 (05:37→17:25)
--- NOTE | 2019-09-02 06:10 | NURSING ---
This RN entered patient room to complete vitals and assessment around 03:16. This RN tried to wake patient, patient opened eyes and was staring straight forward. Pt would not respond to verbal stimuli. Very fine abnormal movements to face. Home CPAP was in place. Pt telemetry alarm rang to this RN's phone at a rate of 31 beats/minute. This RN pressed the staff emergency button. Staff responded to bedside. Pulse check completed and pt had a pulse. Rapid response team was called. Patient home CPAP removed and patient placed on 3L nasal cannula. Dr. Fernandez to bedside. Blood glucose 123. Pt BP during MEDICARE COMPLIANCE AUDITOR: 88/46, 98/53, 105/45. Pt began responding to staff, but was lethargic. Pt noted to have been incontinent of urine. Nightshift hospitalist ordered CBC, BMP, CPK, Prolactin, EKG, and a non-contrast CT of the head. MD ordered an EEG and ordered for neurology to be consulted. Brain CT with nothing acute (see report). Patient given an initial dose of IV Keppra. Keppra was also ordered to be given BID. Pt c/o nausea after episode. NIHSS scale completed with a result of (0). Patient passed bedside dysphagia screen. Pt declined wanting this RN to contact any family.
--- NOTE | 2019-09-02 07:35 | PCM.PROGNOTE ---
Patient Problems: Active and Suspected Problems Exertional dyspnea (Acute) Elevated TSH (Acute) Near syncope (Acute) Heart murmur (Acute) Subjective: Late entry for 09/01/19 SOB is better today. She was able to maintain an appropriate oxygen saturation on RA with ambulation. Telemetry with NSR and no significant ectopy. Rare PVC. BP is stable. She continues to c/o feeling like she is going to pass out at times. she has been wearing her CPAP while in the hospital - Physical Exam Vitals/I&O's: Vital Signs Temp Pulse Resp BP Pulse Ox 97.7 F L 87 12 141/45 H 96 09/02/19 03:37 09/02/19 03:37 09/02/19 03:37 09/02/19 03:37 09/02/19 03:37 Oxygen Flow Rate (L/min) [ 0 AMBULATING on Room Air] Oxygen Flow Rate (L/min) [At 0 REST on Room Air] Oxygen Flow Rate (L/min) 2 Oxygen Delivery Method Nasal Cannula Weight: 203 lb 14.841 oz Body Mass Index (BMI) 32.9 Orthostatic Vital Signs Start: 08/31/19 16:33 Freq: q24h Status: Active Protocol: Activity Type Activity Date Activity User E-Sign Co-Sign Detail Recorded Client Recorded Date Recorded By Document 08/31/19 16:33 [facility] [id number] 08/31/19 17:11 [facility] [place] 08/31/19 16:33 Orthostatic Vitals Standing -Blood Pressure (90/60-120/80 mm Hg) 156/77 H -Extremity Use Right Arm -Pulse Rate (60-100 beats/min) 87 Sitting -Blood Pressure (90/60-120/80 mm Hg) 161/73 H -Extremity Use Right Arm -Pulse Rate (60-100 beats/min) 76 Lying -Blood Pressure (90/60-120/80 mm Hg) 166/75 H -Extremity Use Right Arm -Pulse Rate (60-100 beats/min) 71 Intake and Output for Last 24 Hours 08/31/19 09/01/19 09/02/19 23:59 23:59 23:59 Intake Total 240 / 240 1140 / 1140 120 / 120 Balance 240 / 240 1140 / 1140 120 / 120 General: Alert, Oriented x3, Cooperative, No apparent distress Oral: Moist Mucosa Neck: Supple Lungs: Clear to auscultation Cardiovascular: Regular rate, Regular Rhythm, Normal S1, Normal S2, Murmur, No rub noted, No Gallop Abdomen: Bowel Sounds Present, Soft, Non Tender, Non-Distended Extremities: No clubbing, No cyanosis, No edema Neurological: Cranial nerves II-XII grossly intact, Neuro grossly intact Psych/Mental Status: Normal Affect, Appropriate Laboratory Results 09/02/19 03:23: POC Glucose 123 H 09/02/19 04:10: WBC 6.5, RBC 3.89 L, Hgb 11.9 L, Hct 36.6 L, MCV 94.1, MCH 30.6, MCHC 32.5, RDW Std Deviation 40.6, RDW Coeff of Joseph 11.9, Plt Count 232, MPV 9.1, Immature Gran % (Auto) 0.300, Neut % (Auto) 45.6 L, Lymph % (Auto) 41.7 H, [place] % (Auto) 8.9, Eos % (Auto) 2.9, Baso % (Auto) 0.6, Absolute Neuts (auto) 3.0, Absolute Lymphs (auto) 2.71, Nucleated RBC % 0 09/02/19 04:10: Sodium 137, Potassium 3.5, Chloride 102, Carbon Dioxide 25.0, Anion Gap 10, BUN 32 H, Creatinine 1.50 H, Estim Creat Clear Calc 29.87, Est GFR (MDRD) Af Amer 43 L, Est GFR (MDRD) Non-Af 36 L, BUN/Creatinine Ratio 21.3 H, Glucose 146 H, Calcium 8.6, Total Creatine Kinase 57, Troponin I < 0.015, Prolactin 102.9 09/02/19 06:11: Troponin I < 0.015 Current Medications Acetaminophen (Tylenol) 650 mg PO Q6H PRN PRN PRN Reason: Pain Score 1-3/Temp > 100.7 F Al Hydroxide/Mg Hydroxide (Mylanta Ii) 30 ml PO Q6H PRN PRN PRN Reason: Gastric Burning Albuterol Sulfate (Ventolin Aerosols) 2.5 mg INHALATION Q2H PRN PRN PRN Reason: SOB/Wheezing Aspirin (Aspirin, Baby) 81 mg PO DAILY@0800 [facility] Last Admin: 09/01/19 09:43 Dose: 81 mg Documented by: Atorvastatin Calcium (Lipitor) 5 mg PO QHS [facility] Last Admin: 09/01/19 21:18 Dose: 5 mg Documented by: Citalopram Hydrobromide (Celexa) 40 mg PO DAILY [facility] Last Admin: 09/01/19 09:43 Dose: 40 mg Documented by: Enoxaparin Sodium (Lovenox) 90 mg SC Q12@0600,1800 [facility] Last Admin: 09/02/19 05:37 Dose: 90 mg Documented by: Gabapentin (Neurontin) 100 mg PO BIDCM [facility] Last Admin: 09/01/19 17:42 Dose: 100 mg Documented by: Gabapentin (Neurontin) 200 mg PO QHS [facility] Last Admin: 09/01/19 21:19 Dose: 200 mg Documented by: [facility]othiazide () [facility] Last Admin: 09/01/19 21:17 Dose: 12.5 mg Documented by: Levetiracetam 500 mg/ Sodium (Chloride) 105 mls @ 400 mls/hr IV Q12 [facility] Sodium Chloride () 250 mls @ 15 mls/hr IV .[id number] PRN PRN Reason: Saline Flush Ipratropium [place] (Atrovent Nasal [place] (G)) 2 spray NASAL TID [facility] Last Admin: 09/02/19 05:37 Dose: Not Given Documented by: Losartan Potassium (Cozaar) [facility] Last Admin: 09/01/19 21:17 Dose: 50 mg Documented by: Magnesium Hydroxide (Milk Of Magnesia) 30 ml PO DAILY PRN PRN PRN Reason: Constipation Morphine Sulfate () 2 mg IV Q3H PRN PRN PRN Reason: Pain Score 6-10/10 Nitroglycerin (Nitrostat) 0.4 mg SUBLINGUAL Q5M PRN PRN Reason: CARDIAC/CHEST PAIN Nortriptyline HCl (Pamelor) 50 mg PO QHS [facility] Last Admin: 09/01/19 21:18 Dose: 50 mg Documented by: Prochlorperazine Edisylate (Compazine Iv) 5 mg IV Q6H PRN PRN PRN Reason: NAUSEA/VOMITING Sodium Chloride () 10 - 40 ml IV UD PRN PRN Reason: SALINE FLUSH Last Admin: 09/02/19 04:36 Dose: 10 ml Documented by: Tramadol HCl (Ultram) 100 mg PO Q6H PRN PRN PRN Reason: Pain Score 1-08/05 Last Admin: 09/01/19 21:19 Dose: 100 mg Documented by: Vitamin E (Vitamin E) 800 units PO DAILY [facility] Last Admin: 09/01/19 09:43 Dose: 800 units Documented by: Medical Necessity - Tobacco Use Smoking Status: Never smoker Tobacco Use: Non-smoker Assessment/Plan All Active Problems Exertional dyspnea (Acute) Elevated TSH (Acute) Near syncope (Acute) Heart murmur (Acute) Impressions 1. KAYE - EKG unremarkable. Troponin negative. Continuous since Friday. R calf pain. CTA of the chest with PE's. US of the legs today. 2. episodic near syncope at home - not new. Etiology unclear. Suspect she may be having a dysrhythmia. If no evidence of this on telemetry in the hospital may consider sending home with a 30 day event monitor. she did not desat with ambulation today but she got pale and fatigued easily 3. R calf pain -no evidence for acute deep vein thrombosis in either lower extremity. 4. Chronic renal failure stage III 5. Hypothyroidism-mildly increased TSH with a normal T4. No need to treat at this time. Possible follow up with Dr. Chiang going forward 6. 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 EF is 65% and there is concentric left ventricular hypertrophy. There was trivial mitral valve insufficiency. PA systolic was estimated at 35 mmHg which is mildly increased. 7. Chronic diagnoses include: Hypertension/hyperlipidemia/chronic back pain/radicular pain of the right lower extremity/osteoarthritis/obesity/NATACHA on CPAP/anxiety/depression Keep in the hospital overnight RX for Eliqujaquelin faxed to her pharmacy - co-pay? Orth[facility] in the AM. If no dysrhythmia overnight will DC with a 30 day event monitor. Code Visit OBSV E&M: 13347 Subsequent observation care L2
--- NOTE | 2019-09-02 07:49 | PN_ITS ---
Patient Problems: Active and Suspected Problems Exertional dyspnea (Acute) Elevated TSH (Acute) Near syncope (Acute) Heart murmur (Acute) Subjective: All events of the past 24 hours of been reviewed. An [employer] was called overnight shortly after 3 AM because the patient became unresponsive and severely bradycardic on telemetry. She had junctional rhythm and the longest pause was 2.7. she was staring and not responding to calling her name or shaking her. She was incontinent of urine. She had no tonic clonic activity per her nurse Disha. Noncontrasted CT scan of the brain showed no acute intracranial hemorrhage or space-occupying lesion. There is mild generalized atrophy along with microangiopathic white matter disease. Review of labs done early this morning show a BUN of 32 and a creatinine of 1.5. She was started on Keppra by the night hospitalist. An EKG done when she was in NSR showed no acute ST or T wave changes. She had another episode while sitting in the chair today and felt nauseated and like she was going to pass out.......she became pale and very fatigued. She gets these episodes at home but, only when she is upright. When she is lying down she feels fine. - Physical Exam Vitals/I&O's: Vital Signs Temp Pulse Resp BP Pulse Ox 97.7 F L 87 12 141/45 H 96 09/02/19 03:37 09/02/19 03:37 09/02/19 03:37 09/02/19 03:37 09/02/19 03:37 Oxygen Flow Rate (L/min) [ 0 AMBULATING on Room Air] Oxygen Flow Rate (L/min) [At 0 REST on Room Air] Oxygen Flow Rate (L/min) 2 Oxygen Delivery Method Nasal Cannula Weight: 203 lb 14.841 oz Body Mass Index (BMI) 32.9 Orthostatic Vital Signs Start: 08/31/19 16:33 Freq: q24h Status: Active Protocol: Activity Type Activity Date Activity User E-Sign Co-Sign Detail Recorded Client Recorded Date Recorded By Document 08/31/19 16:33 [facility] [place] [id number] 08/31/19 17:11 [facility] [place] 08/31/19 16:33 Orthostatic Vitals Standing -Blood Pressure (90/60-120/80 mm Hg) 156/77 H -Extremity Use Right Arm -Pulse Rate (60-100 beats/min) 87 Sitting -Blood Pressure (90/60-120/80 mm Hg) 161/73 H -Extremity Use Right Arm -Pulse Rate (60-100 beats/min) 76 Lying -Blood Pressure (90/60-120/80 mm Hg) 166/75 H -Extremity Use Right Arm -Pulse Rate (60-100 beats/min) 71 Intake and Output for Last 24 Hours 08/31/19 09/01/19 09/02/19 23:59 23:59 23:59 Intake Total 240 / 240 1140 / 1140 120 / 120 Balance 240 / 240 1140 / 1140 120 / 120 General: Oriented x3, - - pale, lethargic - just got back to bed. HEENT: Atraumatic, PERRLA Oral: No Gingival or Mucosal Lesions/ Ulcerations, Dry Mucosa Neck: Supple, No JVD, Trachea Midline Lungs: Clear to auscultation - anterior and lateral Cardiovascular: Regular rate, Regular Rhythm, Normal S1, Normal S2, Murmur, No Gallop Abdomen: Bowel Sounds Present Extremities: No cyanosis, No edema Neurological: Cranial nerves II-XII grossly intact, Neuro grossly intact Laboratory Results 09/02/19 03:23: POC Glucose 123 H 09/02/19 04:10: WBC 6.5, RBC 3.89 L, Hgb 11.9 L, Hct 36.6 L, MCV 94.1, MCH 30.6, MCHC 32.5, RDW Std Deviation 40.6, RDW Coeff of Joseph 11.9, Plt Count 232, MPV 9.1, Immature Gran % (Auto) 0.300, Neut % (Auto) 45.6 L, Lymph % (Auto) 41.7 H, [place] % (Auto) 8.9, Eos % (Auto) 2.9, Baso % (Auto) 0.6, Absolute Neuts (auto) 3.0, Absolute Lymphs (auto) 2.71, Nucleated RBC % 0 09/02/19 04:10: Sodium 137, Potassium 3.5, Chloride 102, Carbon Dioxide 25.0, Anion Gap 10, BUN 32 H, Creatinine 1.50 H, Estim Creat Clear Calc 29.87, Est GFR (MDRD) Af Amer 43 L, Est GFR (MDRD) Non-Af 36 L, BUN/Creatinine Ratio 21.3 H, Glucose 146 H, Calcium 8.6, Total Creatine Kinase 57, Troponin I < 0.015, Prolactin 102.9 09/02/19 06:11: Troponin I < 0.015 Current Medications Acetaminophen (Tylenol) 650 mg PO Q6H PRN PRN PRN Reason: Pain Score 1-3/Temp > 100.7 F Al Hydroxide/Mg Hydroxide (Mylanta Ii) 30 ml PO Q6H PRN PRN PRN Reason: Gastric Burning Albuterol Sulfate (Ventolin Aerosols) 2.5 mg INHALATION Q2H PRN PRN PRN Reason: SOB/Wheezing Aspirin (Aspirin, Baby) 81 mg PO DAILY@0800 [facility] Last Admin: 09/01/19 09:43 Dose: 81 mg Documented by: Atorvastatin Calcium (Lipitor) 5 mg PO QHS [facility] Last Admin: 09/01/19 21:18 Dose: 5 mg Documented by: Citalopram Hydrobromide (Celexa) 40 mg PO DAILY [facility] Last Admin: 09/01/19 09:43 Dose: 40 mg Documented by: Enoxaparin Sodium (Lovenox) 90 mg SC Q12@0600,1800 [facility] Last Admin: 09/02/19 05:37 Dose: 90 mg Documented by: Gabapentin (Neurontin) 100 mg PO BIDCM [facility] Last Admin: 09/01/19 17:42 Dose: 100 mg Documented by: Gabapentin (Neurontin) 200 mg PO QHS [facility] Last Admin: 09/01/19 21:19 Dose: 200 mg Documented by: Hydrochlorothiazide () 12.5 mg PO QHS [facility] Last Admin: 09/01/19 21:17 Dose: 12.5 mg Documented by: Levetiracetam 500 mg/ Sodium (Chloride) 105 mls @ 400 mls/hr IV Q12 [facility] Sodium Chloride () 250 mls @ 15 mls/hr IV .[id number] PRN PRN Reason: Saline Flush Ipratropium [place] (Atrovent Nasal [place] (G)) 2 spray NASAL TID [facility] Last Admin: 09/02/19 05:37 Dose: Not Given Documented by: Losartan Potassium (Cozaar) 50 mg PO QHS [facility] Last Admin: 09/01/19 21:17 Dose: 50 mg Documented by: Magnesium Hydroxide (Milk Of Magnesia) 30 ml PO DAILY PRN PRN PRN Reason: Constipation Morphine Sulfate () 2 mg IV Q3H PRN PRN PRN Reason: Pain Score 6-10/10 Nitroglycerin (Nitrostat) 0.4 mg SUBLINGUAL Q5M PRN PRN Reason: CARDIAC/CHEST PAIN Nortriptyline HCl (Pamelor) 50 mg PO QHS [facility] Last Admin: 09/01/19 21:18 Dose: 50 mg Documented by: Prochlorperazine Edisylate (Compazine Iv) 5 mg IV Q6H PRN PRN PRN Reason: NAUSEA/VOMITING Sodium Chloride () 10 - 40 ml IV UD PRN PRN Reason: SALINE FLUSH Last Admin: 09/02/19 04:36 Dose: 10 ml Documented by: Tramadol HCl (Ultram) 100 mg PO Q6H PRN PRN PRN Reason: Pain Score 1-10/10 Last Admin: 09/01/19 21:19 Dose: 100 mg Documented by: Vitamin E (Vitamin E) 800 units PO DAILY [facility] Last Admin: 09/01/19 09:43 Dose: 800 units Documented by: Medical Necessity - Tobacco Use Smoking Status: Never smoker Tobacco Use: Non-smoker Assessment/Plan All Active Problems Exertional dyspnea (Acute) Elevated TSH (Acute) Near syncope (Acute) Heart murmur (Acute) Impressions 1. KAYE - EKG's unremarkable. Troponins negative. CTA of the chest with PE's. US of the legs with no DVT 2. episodic near syncope at home - not new. Etiology unclear. Suspect she may be having a dysrhythmia. If no evidence of this on telemetry in the hospital may consider sending home with a 30 day event monitor. she did not desat with ambulation today but she got pale and fatigued easily 3. R calf pain -no evidence for acute deep vein thrombosis in either lower extremity. 4. Chronic renal failure stage III - BUN and creat increased today. NL EF. Will DC the HCTZ. Needs to have orthostatic VS's done or to be considered for a tilt table test. 5. Hypothyroidism-mildly increased TSH with a normal T4. No need to treat at this time. Possible follow up with Dr. Chiang going forward 6. 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 EF is 65% and there is concentric left ventricular hypertrophy. There was trivial mitral valve insufficiency. PA systolic was estimated at 35 mmHg which is mildly increased. 7. Chronic diagnoses include: Hypertension/hyperlipidemia/chronic back pain/radicular pain of the right lower extremity/osteoarthritis/obesity/NATACHA on CPAP/anxiety/depression DC the Keppra. The event last night was likely due to severe bradycardia. EEG ordered for today. Cardiology and neurology consults Orthostatics today - mildly + at admission but, the BUN and the creat have gone up since then. DC HCTZ and give 2 lit of IV fluid Check a HGBA1C......FBS's are increased and she eats a lot of sweets. Code Visit Inpatient E&M: 45921 Subs Hosp L3
[2019-09-02 08:49] LABS: Magnesium 2.5 mg/dL (1.6-2.6); Phosphorus 3.8 mg/dL (2.5-4.9)
[2019-09-02 09:27] LABS: Hemoglobin A1c 5.7 % (4.2-6.3)
[2019-09-02] MEDS: Vitamin E 400 UNITS Capsule 800 UNITS PO (09:59)
[2019-09-02] MEDS: Aspirin 81 MG TAB.CHEW PO (09:59)
[2019-09-02] MEDS: Gabapentin 100 MG Capsule PO ×2 (09:59→17:25)
[2019-09-02] MEDS: Citalopram 40 MG TABLET PO (09:59)
--- NOTE | 2019-09-02 10:46 | PCM.CONS.C ---
<Jorge Blanchard - Last Filed: 09/02/19 11:40> Problem List (1) Near syncope Status: Acute Reason for Consult Date of Consultation: 09/02/19 Reason for Consultation: Unresponsiveness, near syncope History of Present Illness: The patient is a 74 year old F who presented to [facility] Emergency Department on 08/31/2019 for dyspnea on exertion for 3 days. Her EKG showed sinus rhythm without ischemic changes. She did have an elevated TSH and was admitted for further evaluation. She underwent a chest CTA on 08/31/2019 that was positive for pulmonary embolus involving the right middle lobe branches and suspicious for subtle PE in the lower lobe branches. 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 Her EKG revealed junctional rhythm, frequent PVCs followed by a 2.7-second pause. She underwent a brain CT scan that showed no acute intracranial hemorrhage or space-occupying lesion. Cardiology was consulted for further recommendation. Past Medical History Allergies/Adverse Reactions: Allergies No Known Allergies Allergy (Verified 08/31/19 10:42) Home Medications: Ambulatory Orders Medication Instructions Recorded Citalopram [Celexa] 40 mg PO DAILY 01/27/17 Fish Oil/Dha/Epa [Fish Oil 1,200 1 each PO DAILY 01/27/17 mg Fish Oil] Losartan/Hydrochlorothiazide 1 each PO QHS 01/27/17 [Losartan-Hctz 50-12.5 mg Tab] Nortriptyline HCl [Pamelor] 50 mg PO QHS 01/27/17 Simvastatin [Zocor] 10 mg PO QHS 01/27/17 Vitamin E Acetate [Vitamin E] 1,000 unit PO DAILY 01/27/17 traMADol [Ultram (G)] 100 mg PO Q6H PRN PRN #90 tablet 02/05/17 Apixaban [Eliquis] 5 mg PO BID #74 tab 09/01/19 Past Medical History (Chronic Problems): Chronic Problems Hypertension (Chronic) Hyperlipidemia (Chronic) Chronic back pain (Chronic) Radicular pain of right lower extremity (Chronic) Osteoarthritis (Chronic) Obesity (BMI 30-39.9) (Chronic) Chronic renal failure, stage 3 (moderate) (Chronic) Sleep apnea (Chronic) Anxiety and depression (Chronic) Surgical History: total hip arthroplasty - Left hip 02/03/2017, - - She has had 2 back surgeries. Psychiatric History: Anxiety, Depression ASSESSMENT DIRECTOR History: No pertinent ASSESSMENT DIRECTOR history - *Family History Paternal History Items: Heart Disease Maternal History Items: - - Her mother from old age. She denies any family history of ovarian or breast cancers. Sibling History Items: - - She has a younger brother who of heart complications secondary to rheumatic fever Lives: Spouse/ Significant Other Smoking Status: Never smoker Tobacco Use: Non-smoker Alcohol: None Drugs: None Review of Systems - Review of Systems General: Denies: Fever, Fatigue, Malaise, Chills HEENT: Denies: Vision Change Cardiovascular: Denies: Chest Discomfort, Chest Discomfort at Rest, Chest Discomfort with Exertion, Chest Pressure, Chest Tightness, Chest Heaviness, Shortness of Breath, Shortness of Breath at Rest, Shortness of Breath with Exertion, Orthopnea, PND, Peripheral Edema, Palpitations, Lightheadedness, Dizziness, Near Syncope, Syncope, Orthostatic Symptoms, Claudication Respiratory: Denies: Cough Neurological: Denies: Dizziness Subjectve: Patient seen and evaluated. She does acknowledge improved shortness of breath since admission. She states that her unresponsive event and near syncopal event in switchboard operator receptionist have occurred previously. She denied any associated chest pain. She did acknowledge lightheadedness and dizziness. She did acknowledge associated nausea. She currently states feeling well. Objective: Vital Signs Temp Pulse Resp BP Pulse Ox 97.6 F L 79 14 137/66 H 100 09/02/19 09:17 09/02/19 09:17 09/02/19 09:17 09/02/19 09:17 09/02/19 09:17 Oxygen Flow Rate (L/min) [ 0 AMBULATING on Room Air] Oxygen Flow Rate (L/min) [At 0 REST on Room Air] Oxygen Flow Rate (L/min) 2 Oxygen Delivery Method Room Air Weight: 203 lb 14.841 oz Body Mass Index (BMI) 32.9 Orthostatic Vital Signs Start: 08/31/19 16:33 Freq: q24h Status: Active Protocol: Activity Type Activity Date Activity User E-Sign Co-Sign Detail Recorded Client Recorded Date Recorded By Document 08/31/19 16:33 [facility] [place] [id number] 08/31/19 17:11 [facility] [place] 08/31/19 16:33 Orthostatic Vitals Standing -Blood Pressure (90/60-120/80) 156/77 H -Extremity Use Right Arm -Pulse Rate (60-100) 87 Sitting -Blood Pressure (90/60-120/80) 161/73 H -Extremity Use Right Arm -Pulse Rate (60-100) 76 Lying -Blood Pressure (90/60-120/80) 166/75 H -Extremity Use Right Arm -Pulse Rate (60-100) 71 Intake and Output for Last 24 Hours 08/31/19 09/01/19 09/02/19 23:59 23:59 23:59 Intake Total 240 / 240 1140 / 1140 120 / 120 Balance 240 / 240 1140 / 1140 120 / 120 General: Healthy Appearing, Awake, Alert, Oriented x 3, Cooperative, No Acute Distress HEENT: Atraumatic Oral: Moist Mucosa Neck: Supple, No JVD Lungs: Clear to auscultation Cardiovascular: Regular Rhythm, Normal S1, Normal S2, No Rubs, No Gallops Murmur Murmur: Grade 1/6, Soft, LLSB Vascular: No Carotid Bruits Abdomen: Bowel Sounds Present, Soft Extremities: No Cyanosis, No Clubbing, No edema, Normal Capillary Refill Neurological: No Focal Motor or Sensory Deficit Psych/Mental Status: Appropriate, Normal Affect 09/02/19 04:10: WBC 6.5, RBC 3.89 L, Hgb 11.9 L, Hct 36.6 L, MCV 94.1, MCH 30.6, MCHC 32.5, Plt Count 232, MPV 9.1, Immature Gran % (Auto) 0.300, Neut % (Auto) 45.6 L, Lymph % (Auto) 41.7 H, [place] % (Auto) 8.9, Eos % (Auto) 2.9, Baso % (Auto) 0.6, Absolute Neuts (auto) 3.0, Nucleated RBC % 0 09/02/19 04:10: Sodium 137, Potassium 3.5, Chloride 102, Carbon Dioxide 25.0, Anion Gap 10, BUN 32 H, Creatinine 1.50 H, Est GFR (MDRD) Af Amer 43 L, Est GFR (MDRD) Non-Af 36 L, BUN/Creatinine Ratio 21.3 H, Glucose 146 H, Calcium 8.6, Troponin I < 0.015 09/02/19 06:11: Troponin I < 0.015 09/02/19 06:11: Hemoglobin A1c 5.7 09/02/19 06:11: Phosphorus 3.8, Magnesium 2.5 09/02/19 09:24: Troponin I < 0.015 Rhythm: EKG: ECHO: 08/31/2019 Interpretation Summary The estimated ejection fraction is 65 %. Normal diastology for age. Concentric left ventricular hypertrophy. Trivial mitral valve insufficiency. Stress Test: Cardiac Cath: PCI: CT Surgery: Holter monitor: EPS: PPM: CXR: Chest CT Scan: Assessment/Plan 1. Dysrhythmia Patient did have multiple dysrhythmias that may have precipitated her near syncopal and unresponsive event. This included junctional rhythm and 2.7 second pause. This occurred while sleeping. She is not on any rate limiting medications. Her echocardiogram on 09/01/2019 showed a preserved ejection fraction, no regional wall motion abnormalities, and trivial mitral valve insufficiency. She states having similar episodes previously, that appear to be occurring more often over the last month. She denies any previous cardiac work-up for such issues. Patient will undergo a 48-hour Holter monitor upon discharge to evaluate dysrhythmia component. She will then proceed with an outpatient 30-day event monitor. Hopefully, this will allow for continual monitoring. We will consider outpatient stress testing once fully recovered from her pulmonary embolism. Of note, her cardiac enzyme has been negative x6 including this morning after her near syncopal/unresponsive event. 2. Pulmonary embolism Her CT scan on 08/31/2019 was positive for right middle lobe pulmonary embolism. She has been receiving anticoagulation therapy and is expected to be discharged on factor Xa inhibitor. She does acknowledge improved shortness of breath since admission. Her brain CT scan from 09/02/2019 was negative for bleeding. 3. Hypertension Her medications have been adjusted during her hospitalization. She is expected to be discharged on losartan 50 mg p.o. daily 4. Hyperlipidemia Her lipid panel from 09/01/2019 showed cholesterol: 202, HDL: 78, LDL: 111, triglycerides: 66. She denies any previous cardiac work-up. She does acknowledge a family history of her dad passing away from an VT in his mid 70s. She will continue with current statin medication. Patient's case was discussed further with Dr. Smith, who will also personally evaluate patient Thank you for allowing us to participate in the patients plan of care, if you have any questions please do not hesitate to call. This note was generated using a voice recognition system and there may be incorrect words, spelling or punctuation that were not noted when reviewing the office note prior to saving. <[email or web address] hamm - Last Filed: 09/02/19 15:50> Reason for Consult History of Present Illness: The patient is a 74 year old F [] Objective: Vital Signs Temp Pulse Resp BP Pulse Ox 97.7 F L 79 14 129/64 H 100 09/02/19 15:00 09/02/19 15:00 09/02/19 15:00 09/02/19 15:00 09/02/19 15:00 Oxygen Flow Rate (L/min) [ 0 AMBULATING on Room Air] Oxygen Flow Rate (L/min) [At 0 REST on Room Air] Oxygen Flow Rate (L/min) 2 Oxygen Delivery Method Nasal Cannula Weight: 203 lb 14.841 oz Body Mass Index (BMI) 32.9 Orthostatic Vital Signs Start: 08/31/19 16:33 Freq: q24h Status: Active Protocol: Activity Type Activity Date Activity User E-Sign Co-Sign Detail Recorded Client Recorded Date Recorded By Document 09/02/19 12:26 [facility] [place] [id number] 09/02/19 12:27 [facility] [place] 09/02/19 12:26 Orthostatic Vitals Standing -Blood Pressure (90/60-120/80) 160/70 H -Extremity Use Right Arm -Pulse Rate (60-100) 92 Sitting -Blood Pressure (90/60-120/80) 142/66 H -Extremity Use Right Arm -Pulse Rate (60-100) 85 Lying -Blood Pressure (90/60-120/80) 133/68 H -Extremity Use Right Arm -Pulse Rate (60-100) 83 Intake and Output for Last 24 Hours 08/31/19 09/01/19 09/02/19 23:59 23:59 23:59 Intake Total 240 / 240 1140 / 1140 453.33 / 453.33 Balance 240 / 240 1140 / 1140 453.33 / 453.33 09/02/19 04:10: WBC 6.5, RBC 3.89 L, Hgb 11.9 L, Hct 36.6 L, MCV 94.1, MCH 30.6, MCHC 32.5, Plt Count 232, MPV 9.1, Immature Gran % (Auto) 0.300, Neut % (Auto) 45.6 L, Lymph % (Auto) 41.7 H, [place] % (Auto) 8.9, Eos % (Auto) 2.9, Baso % (Auto) 0.6, Absolute Neuts (auto) 3.0, Nucleated RBC % 0 09/02/19 04:10: Sodium 137, Potassium 3.5, Chloride 102, Carbon Dioxide 25.0, Anion Gap 10, BUN 32 H, Creatinine 1.50 H, Est GFR (MDRD) Af Amer 43 L, Est GFR (MDRD) Non-Af 36 L, BUN/Creatinine Ratio 21.3 H, Glucose 146 H, Calcium 8.6, Troponin I < 0.015 09/02/19 06:11: Troponin I < 0.015 09/02/19 06:11: Hemoglobin A1c 5.7 09/02/19 06:11: Phosphorus 3.8, Magnesium 2.5 09/02/19 09:24: Troponin I < 0.015 Rhythm: EKG: ECHO: Stress Test: Cardiac Cath: PCI: CT Surgery: Holter monitor: EPS: PPM: CXR: Chest CT Scan: Assessment/Plan Patient was seen, evaluated and discussed with Jorge Blanchard APN. Patient had episodes of bradycardia mainly during sleep. She has had episodes of dizziness for several years with the frequency going up over the last week. She states that she has had 4 episodes over the last week. She lies down when she has these episodes and they go away after some time. At this point it appears vasovagal. I agree with sending the patient home with a Holter monitor and then also doing a 30-day event monitor to look for significant arrhythmias. She can follow-up with us as an outpatient. She can be discharged home from a cardiac standpoint at this time. Thank you very much for letting us perspective the care of this patient.
--- NOTE | 2019-09-02 11:07 | PCM.CONS.GEN ---
Problem List (1) Unresponsive episode Status: Acute Reason for Consult Date of Consultation: 09/02/19 Reason for Consultation: urnresponsive episode, near syncope History of Present Illness: The patient is a 74 year old F with PMH HTN, HLD, history of low back surgery, CKD, sleep apnea, anxiety/depression admitted with dyspnea, was found to have PE. 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 History is obtained from the patient as well as from medical records. Per documentation patient was unresponsive had some twitching and was not responding and was incontinent of urine, the overnight hospitalist started patient on prophylactic Keppra after loading patient with Keppra 1 g IV once, no documentation of tonic-clonic witnessed seizure activity, per documentation during this episode patient was severely bradycardic on telemetry and had a junctional rhythm with the longest pause of 2.7. This morning Keppra was discontinued by hospitalist as documented event appeared to be more cardiac related. At present patient denies any new onset headache, dizziness, focal motor weakness, sensory loss, visual disturbances, speech disturbances, patient denies any history of seizures in the past. [] Past Medical History Past Medical History (Chronic Problems): Chronic Problems Hypertension (Chronic) Hyperlipidemia (Chronic) Chronic back pain (Chronic) Radicular pain of right lower extremity (Chronic) Osteoarthritis (Chronic) Obesity (BMI 30-39.9) (Chronic) Chronic renal failure, stage 3 (moderate) (Chronic) Sleep apnea (Chronic) Anxiety and depression (Chronic) Allergies No Known Allergies Allergy (Verified 08/31/19 10:42) Home Medications: Ambulatory Orders Medication Instructions Recorded Citalopram [Celexa] 40 mg PO DAILY 01/27/17 Fish Oil/Dha/Epa [Fish Oil 1,200 1 each PO DAILY 01/27/17 mg Fish Oil] Losartan/Hydrochlorothiazide 1 each PO QHS 01/27/17 [Losartan-Hctz 50-12.5 mg Tab] Nortriptyline HCl [Pamelor] 50 mg PO QHS 01/27/17 Simvastatin [Zocor] 10 mg PO QHS 01/27/17 Vitamin E Acetate [Vitamin E] 1,000 unit PO DAILY 01/27/17 traMADol [Ultram (G)] 100 mg PO Q6H PRN PRN #90 tablet 02/05/17 Apixaban [Eliquis] 5 mg PO BID #74 tab 09/01/19 Surgical History: total hip arthroplasty - Left hip 02/03/2017, - - She has had 2 back surgeries. 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 She denies any family history of ovarian or breast cancers. Sibling History Items: - - She has a younger brother who of heart complications secondary to rheumatic fever Review of Systems Constitutional: Reports: - - Complete ROS negative except as documented in HPI Patient Problems: Active and Suspected Problems Exertional dyspnea (Acute) Elevated TSH (Acute) Near syncope (Acute) Heart murmur (Acute) Unresponsive episode (Acute) - Physical Exam Vitals/I&O's: Vital Signs Temp Pulse Resp BP Pulse Ox 97.6 F L 79 14 137/66 H 100 09/02/19 09:17 09/02/19 09:17 09/02/19 09:17 09/02/19 09:17 09/02/19 09:17 Oxygen Flow Rate (L/min) [ 0 AMBULATING on Room Air] Oxygen Flow Rate (L/min) [At 0 REST on Room Air] Oxygen Flow Rate (L/min) 2 Oxygen Delivery Method Room Air Weight: 92.5 kg Body Mass Index (BMI) 32.9 Orthostatic Vital Signs Start: 08/31/19 16:33 Freq: q24h Status: Active Protocol: Activity Type Activity Date Activity User E-Sign Co-Sign Detail Recorded Client Recorded Date Recorded By Document 08/31/19 16:33 [facility] [place] [id number] 08/31/19 17:11 [facility] 08/31/19 16:33 Orthostatic Vitals Standing -Blood Pressure (90/60-120/80) 156/77 H -Extremity Use Right Arm -Pulse Rate (60-100) 87 Sitting -Blood Pressure (90/60-120/80) 161/73 H -Extremity Use Right Arm -Pulse Rate (60-100) 76 Lying -Blood Pressure (90/60-120/80) 166/75 H -Extremity Use Right Arm -Pulse Rate (60-100) 71 Intake and Output for Last 24 Hours 08/31/19 09/01/19 09/02/19 23:59 23:59 23:59 Intake Total 240 / 240 1140 / 1140 120 / 120 Balance 240 / 240 1140 / 1140 120 / 120 General: Alert HEENT: Normocephalic Neck: Supple Lungs: Normal air movement Cardiovascular: Normal S1, Normal S2 Abdomen: Bowel Sounds Present Extremities: No cyanosis Neurological: - - Conscious, alert, AOA x3, CN II to XII grossly intact, power 5/5 both upper and lower extremities, plantars B/L flexor, no pronator drift, no sensory loss, no cerebellar signs, gait deferred, reflexes + B/L B/S/T/K/A, No NR, fundus not visualized Psych/Mental Status: Normal Affect Laboratory Results 09/02/19 03:23: POC Glucose 123 H 09/02/19 04:10: WBC 6.5, RBC 3.89 L, Hgb 11.9 L, Hct 36.6 L, MCV 94.1, MCH 30.6, MCHC 32.5, RDW Std Deviation 40.6, RDW Coeff of Joseph 11.9, Plt Count 232, MPV 9.1, Immature Gran % (Auto) 0.300, Neut % (Auto) 45.6 L, Lymph % (Auto) 41.7 H, [place] % (Auto) 8.9, Eos % (Auto) 2.9, Baso % (Auto) 0.6, Absolute Neuts (auto) 3.0, Absolute Lymphs (auto) 2.71, Nucleated RBC % 0 09/02/19 04:10: Sodium 137, Potassium 3.5, Chloride 102, Carbon Dioxide 25.0, Anion Gap 10, BUN 32 H, Creatinine 1.50 H, Estim Creat Clear Calc 29.87, Est GFR (MDRD) Af Amer 43 L, Est GFR (MDRD) Non-Af 36 L, BUN/Creatinine Ratio 21.3 H, Glucose 146 H, Calcium 8.6, Total Creatine Kinase 57, Troponin I < 0.015, Prolactin 102.9 09/02/19 06:11: Troponin I < 0.015 09/02/19 06:11: Hemoglobin A1c 5.7 09/02/19 06:11: Phosphorus 3.8, Magnesium 2.5 09/02/19 09:24: Troponin I < 0.015 Current Medications Acetaminophen (Tylenol) 650 mg PO Q6H PRN PRN PRN Reason: Pain Score 1-3/Temp > 100.7 F Al Hydroxide/Mg Hydroxide (Mylanta Ii) 30 ml PO Q6H PRN PRN PRN Reason: Gastric Burning Albuterol Sulfate (Ventolin Aerosols) 2.5 mg INHALATION Q2H PRN PRN PRN Reason: SOB/Wheezing Aspirin (Aspirin, Baby) 81 mg PO DAILY@0800 [facility] Last Admin: 09/02/19 09:59 Dose: 81 mg Documented by: Atorvastatin Calcium (Lipitor) 5 mg PO QHS [facility] Last Admin: 09/01/19 21:18 Dose: 5 mg Documented by: Citalopram Hydrobromide (Celexa) 40 mg PO DAILY [facility] Last Admin: 09/02/19 09:59 Dose: 40 mg Documented by: Enoxaparin Sodium (Lovenox) 90 mg SC Q12@0600,1800 [facility] Last Admin: 09/02/19 05:37 Dose: 90 mg Documented by: Gabapentin (Neurontin) 100 mg PO BIDCM [facility] Last Admin: 09/02/19 09:59 Dose: 100 mg Documented by: Gabapentin (Neurontin) 200 mg PO QHS [facility] Last Admin: 09/01/19 21:19 Dose: 200 mg Documented by: Sodium Chloride () 250 mls @ 15 mls/hr IV .[id number] PRN PRN Reason: Saline Flush Potassium Chloride/Sodium Chloride () 1,000 mls @ 100 mls/hr IV .Q10H [facility] Stop: 09/03/19 03:59 Last Admin: 09/02/19 09:10 Dose: 100 mls/hr Documented by: Ipratropium [place] (Atrovent Nasal [place] (G)) 2 spray NASAL TID [facility] Last Admin: 09/02/19 05:37 Dose: Not Given Documented by: Losartan Potassium (Cozaar) 50 mg PO QHS [facility] Last Admin: 09/01/19 21:17 Dose: 50 mg Documented by: Magnesium Hydroxide (Milk Of Magnesia) 30 ml PO DAILY PRN PRN PRN Reason: Constipation Morphine Sulfate () 2 mg IV Q3H PRN PRN PRN Reason: Pain Score 6-10/10 Nitroglycerin (Nitrostat) 0.4 mg SUBLINGUAL Q5M PRN PRN Reason: CARDIAC/CHEST PAIN Nortriptyline HCl (Pamelor) 50 mg PO QHS [facility] Last Admin: 09/01/19 21:18 Dose: 50 mg Documented by: Prochlorperazine Edisylate (Compazine Iv) 5 mg IV Q6H PRN PRN PRN Reason: NAUSEA/VOMITING Sodium Chloride () 10 - 40 ml IV UD PRN PRN Reason: SALINE FLUSH Last Admin: 09/02/19 04:36 Dose: 10 ml Documented by: Tramadol HCl (Ultram) 100 mg PO Q6H PRN PRN PRN Reason: Pain Score 1-1010 Last Admin: 09/01/19 21:19 Dose: 100 mg Documented by: Vitamin E (Vitamin E) 800 units PO DAILY [facility] Last Admin: 09/02/19 09:59 Dose: 800 units Documented by: Assessment/Plan All Active Problems Exertional dyspnea (Acute) Elevated TSH (Acute) Near syncope (Acute) Heart murmur (Acute) Unresponsive episode (Acute) The patient is a 74 year old F with PMH HTN, HLD, history of low back surgery, CKD, sleep apnea, anxiety/depression admitted with dyspnea, was found to have PE. 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 History is obtained from the patient as well as from medical records. Per documentation patient was unresponsive had some twitching and was not responding and was incontinent of urine, the overnight hospitalist started patient on prophylactic Keppra after loading patient with Keppra 1 g IV once, no documentation of tonic-clonic witnessed seizure activity, per documentation during this episode patient was severely bradycardic on telemetry and had a junctional rhythm with the longest pause of 2.7. This morning Keppra was discontinued by hospitalist as documented event appeared to be more cardiac related. At present patient denies any new onset headache, dizziness, focal motor weakness, sensory loss, visual disturbances, speech disturbances, patient denies any history of seizures in the past. [ Impression Unresponsive episode-possible cardiac etiology Unlikely to be seizures at present Plan -MRI brain -Await EEG -Will hold off AEDs as patient only had 1 event of unresponsive episode without any witnessed GTCs, and had severe bradycardia along with junctional rhythm during the event per documentation -Seizure precautions discussed -Cardiology consult -PT/OT -GI/DVT prophylaxis -Fall precautions -Further medical management per hospitalist team -Please call with questions if any -Follow-up with neurology in 6 weeks -Thank you for allowing us to participate in patient's care and management This note has been generated using one[employer] dictation software. It may contain incorrect words, spellings and punctuation that were not noted in the review of the note prior to signing Code Visit Inpatient E&M: 91960 Init Hosp L3
--- NOTE | 2019-09-02 11:19 | MRI_ITS ---
STUDY: MRI BRAIN WITHOUT CONTRAST REASON FOR EXAM: Female, 74 years old. Unresponsive episode TECHNIQUE: Standardized multiplanar fat and water weighted pulse sequences were obtained. COMPARISON: Head CT dated September 02, 2019 FINDINGS: There is mild cerebral atrophy with widening of the extra-axial spaces and ventricular dilatation. There are multiple white matter hyperintensities, distributed throughout the deep white matter tracts of the cerebral hemispheres, consistent with moderate chronic white matter ischemic changes. There is no evidence for recent intracranial ischemia or other cause of cytotoxic edema on diffusion weighted imaging (DWI). Normal T2* images of the brain without demonstrated susceptibility artifact. There is no demonstrated hemosiderin stain. Normal bilateral frontal poles, and orbital frontal and gyrus recti of the frontal lobes. Normal bilateral temporal tips of the temporal lobes. There are no white matter shear injuries (diffuse axonal injuries). There are no parenchymal hemorrhages or hematomas. There are no findings to suggest prior closed head parenchymal injury of the brain. Patchy chronic ischemic changes are present in the basal ganglia. Normal thalami. There is no extra-axial fluid accumulation. Normal flow voids within the major intracranial circulation suggesting patency by spin echo criteria. Normal sella turcica, pituitary gland, infundibular stalk, optic chiasm and hypothalamus. Normal tectal plate and pineal gland. Normal midbrain, jose and medulla. Normal cerebellum. Normal basal cisterns. Normal bilateral temporal bones. Normal bilateral internal auditory canals. No demonstrated orbital abnormality, within the constraints of a routine brain study. Normal visualized paranasal sinuses. Normal calvarium and skull base. Normal visualized soft tissue structures. Normal visualized upper cervical spine. MRI/Brain without Contrast IMPRESSION: 1. Moderate chronic ischemic changes of the white matter. Electronically Signed: Mihai Zapien MD at 14:11 EST , Service support ,
--- NOTE | 2019-09-02 11:19 | CASEMGMT ---
ANTHONY REY assessment: Face to Face with patient for initial transition planning/care coordination assessment. ANTHONY REY introduced self and role at [facility], pt voices understanding and consents to assessment at this time. Pt is lying in bed in no distress at this time. Pt is A/Ox4 at this time and answers all questions appropriately at this time. Care providers, pharmacy, and demographics verified at this time. PCP: Kevin Specialists: Flight Operations Engineer in [place] but can't remember name. Preferred Pharmacy: [facility] Insurance: [facility] Prescription Benefit: HumR Living Will/HPOA: Pt states has LW/HPOA and is aware that they are not on file at [facility] at this time. Pt states that her , Brian Krishnamurthy, is HPOA. LNOK: Brian Krishnamurthy, Living Arrangements: Pt states lives with in 1 story home with 1 step in and states no concerns at home at this time. Pt states is independent with ADL's. Transportation: Pt states drives self and states no transportation concerns at this time. DME/HHC: Pt states has the following DME: cane, walker, and tub bench but states does not use and states no need for any further DME at this time. Pt states has not had HHC in the past. Pt states has been to SNF in [place] s/p back surgery. Pt states no concerns with going home at time of discharge. Pt states is retired. Pt states does not smoke or drink ETOH. Pt states no further concerns/needs at this time. CM to follow for any further discharge planning/needs. Advised pt to ask for CM if any further questions/concerns/needs arise, voices understanding. Pt Goal: Home Plan[place] ANTHONY REY
--- NOTE | 2019-09-02 12:11 | EEG ---
- Electroencephalogram Date of service 09/02/2019 History EEG is being done in this 74 yr F to rule out seizures EEG Description: This is an 18 channel EEG with 10-20 lead placement system. Bipolar montages, and Referential montages were reviewed. Photic stimulation and Hyperventilation were performed. The posterior dominant rhythm is 6 HZ synchronous, symmetric, reacting to eye opening and closing. Photo stimulation elicited normal driving response but no abnormal photoparoxysmal response, Hyperventilation did not elicit any abnormal photoparoxysmal response. Sleep was identified. There is generalized abnormal background slowing noted in theta frequency range. There was no epileptiform discharges or electrographic seizures noted during this recording. Muscle and EKG artefact noted during the record. EEG Interpretation This is an abnormal EEG due to mild generalized slowing. This may be seen in generalized cerebral dysfunction like metabolic/toxic encephalopathy. Clinical correlation is advised. There is no epileptiform discharges or electrographic seizures noted during the record.
[2019-09-02] MEDS: proCHLORPERazine 10 MG/2 ML Vial 5 MG IV (12:17)
[2019-09-02] MEDS: Atorvastatin Calcium 10 MG Tablet 5 MG PO (21:48)
[2019-09-02] MEDS: Losartan Potassium 50 MG Tablet PO (21:48)
[2019-09-02] MEDS: Nortriptyline 25 MG Capsule 50 MG PO (21:49)
[2019-09-02] MEDS: Gabapentin 100 MG Capsule 200 MG PO (21:49)
[2019-09-03 03:04] VITALS: PULSE 76
[2019-09-03 03:51] VITALS: BP 144/78; PULSE 75; RESP 12; TEMP 36.4; O2SAT 100
[2019-09-03] MEDS: Ipratropium Bromide 0.06% NASAL SPRAY 2 SPRAY NASAL (06:03)
[2019-09-03] MEDS: Enoxaparin 100 MG/ML Syringe 90 MG SC (06:05)
[2019-09-03 06:25] LABS: Hematocrit 35.4 % (37-47); Hemoglobin 11.3 g/dL (12.0-15.0)
[2019-09-03 06:34] LABS: Anion Gap 5 (5-15); BUN 23 mg/dL (7-18); BUN/Creat Ratio 19.5 RATIO (10-20); Calcium,Total 8.7 mg/dL (8.5-10.1); Chloride 109 mmol/L (98-107); Creatinine, Serum 1.18 mg/dL (0.55-1.02); EST Glomerular Filtration Rate 47 mL/min (>60); Est Glom Filt Rate - Afr Amer 57 mL/min (>60); Estimated Creatinine Clearance 37.97 ml/min; Glucose 93 mg/dL (74-106); Sodium Level 140 mmol/L (136-145)
[2019-09-03 06:59] VITALS: PULSE 76
[2019-09-03 09:09] VITALS: BP 148/61; PULSE 79; RESP 14; TEMP 36.5; O2SAT 99
[2019-09-03] MEDS: Aspirin 81 MG TAB.CHEW PO (09:12)
[2019-09-03] MEDS: Gabapentin 100 MG Capsule PO (09:12)
[2019-09-03] MEDS: Vitamin E 400 UNITS Capsule 800 UNITS PO (09:12)
[2019-09-03] MEDS: Citalopram 40 MG TABLET PO (09:12)
--- NOTE | 2019-09-03 11:38 | PCM.DC ---
- Discharge Diagnoses Current Active Problems: Current Active and Chronic Problems Exertional dyspnea (Acute) Hypertension (Chronic) Hyperlipidemia (Chronic) Chronic back pain (Chronic) Radicular pain of right lower extremity (Chronic) Osteoarthritis (Chronic) Obesity (BMI 30-39.9) (Chronic) Chronic renal failure, stage 3 (moderate) (Chronic) Elevated TSH (Acute) Near syncope (Acute) Heart murmur (Acute) Sleep apnea (Chronic) Anxiety and depression (Chronic) Unresponsive episode (Acute) You will use the following diet at home:: Other - Resume previous diet Your food should be the consistency of: Regular Your liquids should be the consistency of: Regular/Thin Discharge Activity: Use Walker Call your doctor if you observe: Fever of 101 or Higher, Shortness of breath, Dizziness, Fainting spells, Swelling in the ankles, Chest pain Additional Instructions: 1. You have been talking a combination of medications in 1 pill for the BP. The BP pill contains Losartan and HCTZ(Hydrocholorothiazide). HCTZ is a diuretic and this was amking you dehydrated. When you stand the blood goes to your feet and not your brain and you can get lightheaded. When you take a diuretic it makes this worse because the intravascular volume is less. I have stopped the diuretic and continued plain Losartan. The BP is a little high and I have increased the Losartan dose to 100 mg at bedtime. you kidney function has improved with discontinuation of the HCTZ and some IV fluids and you no longer feel lightheaded. I do not know if this is the cause of the episodes you have at home or if your heart rate slows down....we will have to see how it goes not that you are off the HCTZ. 2. You heart rate got very slow in the middle of the night and I do not know why. This could be what is causing the lightheaded episodes you are experiencing that cause you to have to lay down on the couch. We are sending you home with a Holtor monitor and on Friday this will be exchanged for a 30 day event monitor. You will follow up with the asphalt paving machine operator in the office in 5 weeks to discuss the results of the monitor with you. 3. You may benefit from wearing some compression stockings when you are up and about. Put them on first thing in the morning and do not take them off until bedtime. 4. I am sending a copy of the discharge summary to Dr. Brown so that he will know what went on in the hospial. You should follow up with him in 7-10 days to have your BP rechecked. 5. Drink enough water daily to keep your urine a pale yellow......if it is dark yellow you are not drinking enough. 6. Pleasure meeting you Talisha....take care and have a good Thanksgiving. Pending Tests on Discharge: none Allergies/Adverse Reactions: Allergies No Known Allergies Allergy (Verified 08/31/19 10:42) Medications to take at Discharge Citalopram [Celexa] 40 mg PO DAILY 01/27/17 Fish Oil/Dha/Epa [Fish Oil 1,200 mg Fish Oil] 1 each PO DAILY 01/27/17 Nortriptyline HCl [Pamelor] 50 mg PO QHS 01/27/17 Simvastatin [Zocor] 10 mg PO QHS 01/27/17 Vitamin E Acetate [Vitamin E] 1,000 unit PO DAILY 01/27/17 traMADol [Ultram] 100 mg PO Q6H PRN PRN #90 tablet 02/05/17 Apixaban [Eliquis] 5 mg PO BID #74 tab 09/01/19 Acetaminophen [Tylenol Tablet] 650 mg PO Q6H PRN PRN tablet 09/03/19 Gabapentin [Neurontin] 100 mg PO UD #90 cap 09/03/19 Losartan Potassium 100 mg PO QHS #30 tab 09/03/19 The following prescriptions were given: Apixaban [Eliquis] 5 mg PO BID #74 tab Transmission Status: Received by [facility]/pharmacy #[id number] Losartan Potassium 100 mg PO QHS #30 tab Transmission Status: Pending to [facility]/pharmacy #[id number] Gabapentin [Neurontin] 100 mg PO UD #90 cap Transmission Status: Pending to [facility]/pharmacy #[id number] Primary Care Physician: Mahendra Brown MD [Primary Care Provider] - Please follow up with your Primary Care Physician in: 7-10days Test Results: Test results from this visit will be discussed in further detail at your follow-up appointment, if applicable. Please Follow Up With: Jj Smith MD When: 5 weeks Proposed Discharge Date: 09/03/19
--- NOTE | 2019-09-03 11:58 | DS.PCM_ITS ---
Discharge Date and Diagnosis Date of Admission: 08/31/19 Date of Discharge: 09/03/19 - Primary Discharge Diagnosis Active and Suspected Problems Exertional dyspnea (Acute) Pulmonary emboli (Acute) Orthostatic hypotension (Acute) Dehydration (Acute) Bradycardia (Acute) Junctional escape rhythm (Acute) Elevated TSH (Acute) with a normal T4 - Secondary Discharge Diagnosis Chronic Problems Hypertension (Chronic) Hyperlipidemia (Chronic) Chronic back pain (Chronic) Radicular pain of right lower extremity (Chronic) Osteoarthritis (Chronic) Obesity (BMI 30-39.9) (Chronic) Chronic renal failure, stage 3 (moderate) (Chronic) Near syncope (Chronic) Heart murmur (Chronic) Sleep apnea (Chronic) Anxiety and depression (Chronic) Left ventricular hypertrophy Hospital Course and Treatment Imaging Results: Clinical Impression(s) from Imaging Studies Chest X-Ray 08/31/19 11:00 IMPRESSION: Hyperinflation. No acute abnormality is seen. Electronically Signed: Nhan Anderson, at 11:12 EST , Service support , Chest CTA 08/31/19 15:49 IMPRESSION: Findings are positive for pulmonary embolism involving the right middle lobe branches. Possible subtle subsegmental branch PTE left lower lobe. Lower lobe atelectasis possible lingular atelectasis and/or infiltrate. Hypodense focus within the liver likely represents a simple cyst could consider follow-up ultrasound. Small hiatal hernia. Electronically Signed: Raiza Wilkerson MD at 16:57 EST Tel , Service support , ADDENDUM: 08/31/19 1714 ADDENDUM: 08/31/[address] 09/02/19 03:27 IMPRESSION: Mild generalized brain atrophy along with microangiopathic white matter disease. No acute intracranial hemorrhage or space-occupying lesion. Electronically Signed: Flower Solorio MD at 4:12 EST , Service support , Brain MRI 09/02/19 11:19 IMPRESSION: 1. Moderate chronic ischemic changes of the white matter. Electronically Signed: Mihai Zapien MD at 14:11 EST , Service support , Dr. Connor Serrano-neurology Dr. [facility] Operations: None Procedures: 2-D Echocardiogram - Interpretation Summary The estimated ejection fraction is 65 %. Normal diastology for age. Concentric left ventricular hy pertrophy. Trivial mitral valve insufficiency. Summary of Care Provided: The patient is a 74 year old F with a past medical history of hypertension, hyperlipidemia, obstructive sleep apnea, anxiety/depression, chronic allergic rhinitis for which she takes shots, osteoarthritis and obesity who presented to the emergency department at [facility] on 08/31/2019 complaining of increased fatigue starting on 08/29/2019. Associated with the increased fatigue was dyspnea on exertion. She denied fever, chills, change in cough, chest pain, N/V/D/abd pain, orthopnea. She also told me that she has had a few episodes of near syncope. She gets very sweaty, feels lightheaded and has to lie down. These episodes always happen when she is standing. She denied palpitations. She denied any hx of of atrial fibrillation or other cardiac dysrhythmias. He has had a stress test in the past but this was many years ago. Her father had coronary artery disease. She has been a lifelong non-smoker. Vital signs at presentation to the emergency department were temperature 98, pulse rate 105, blood pressure 142/83, respiratory rate 22 and she was 100% saturated on room air. CBC was unremarkable. BMP is remarkable for an elevated BUN at 21 with a creatinine of 1.46 and a estimated GFR of 37. This is within her baseline. TSH was mildly increased at 6.34. Troponin was less than 0.015. An AP chest showed hyperinflation with no acute abnormality. EKG showed normal sinus rhythm with a QS wave in lead V1 and V2 possibly secondary to anteroseptal infarct. This was also present on an old EKG from 2 [address] no [address] elevation and no suspicious ST or T wave changes. She was admitted to a monitored bed on PCU and the chest pain protocol was initiated. A CTA of the chest was obtained and showed abnormal enhancement of the right middle lobe branches of the pulmonary arteries consistent with pulmonary emboli. There were also findings suspicious for subtle PE in the lower lobe branches. A hypercoagulable panel was sent but the results were still pending at the time of MS. Serial cardiac enzymes were negative. Echocardiogram showed no segmental wall motion abnormalities and a preserved ejection fraction of 65%. There was concentric left ventricular hypertrophy. Venous Dopplers of the lower extremities showed no evidence for acute deep vein thrombosis in either lower extremity. At approximately 3 AM on 09/02/2019 the patient was found unresponsive by nursing staff. She had been incontinent of urine and was stari ng and twitching. Telemetry strips during the episode showed junctional escape rhythm in the 20s and a 2.7-second pause. EKG was unchanged from prior EKGs. The night hospitalist felt she may have been post ictal and she was started on Keppran and this was discontinued the next AM. She was seen in consultation by Dr. Serrano who felt the episode may have been precipitated by a cardiac event it was unlikely to have been a seizure. An MRI of the brain was ordered and it showed moderate chronic ischemic changes of the white matter with no acute findings. She was also seen in consultation by Dr. Bee from cardiology and he felt the episode was likely vasovagal in nature since it happened at night but, the other episodes of lightheadedness/near syncope that happen when she is awake and upright were a different matter. He recommended a Holtor at [place] followed by a 30 day event monitor. She was hydrated with IV fluids on 09/02 and the following morning she was ambulated in the halss and had PT and she had no lightheadedness. HCTZ was discontinued and she was kept on Cozaar 100 mg daily. She was discharged on Apixaban 5 mg Q 12H which she should continue for at least 6 months. The source of the initial clot was not identified. she has not had a PAP, MMG or colonoscopy recently and in this age group an occult malignancy is certainly a consideration. This was explained to the patient and she will discuss this with Dr. Brown at her next office visit in 7-10 days. He will also have the results of the hypercoagulable W/U available at the time to discuss. She will follow up with Luis Francisco on 5 weeks to review the results of the 30 day event monitor. she was instructed to drink enough water to keep her urine a pale yellow. PHYSICAL EXAM: GENERAL: alert, oriented X 3, Cooperative, NAD, Lying in bed ORAL: moist mucosa, no mucosal lesions NECK: No JVD, supple, trachea midline LUNGS: CTA, symmetric chest expansion HEART: RRR, Normal S1 and S2, no rub, no gallop, systolic MM present at the apex and LLSB is 1-2/6 and short ABDOMEN: soft, NT, ND, BS present, no guarding with palpation EXTREMITIES: no edema, no cyanosis, no calf tenderness SKIN: No rashes, no breakdown NEUROLOGIC: no focal neurologic deficits PSYCH: appropriate, normal affect, pleasant This note was generated with [employer] dictation software. It may contain incorrect words, spelling, and punctuation that were not noted in checking the note before signing. - Physical Exam Vitals/I&O's: Vital Signs Temp Pulse Resp BP Pulse Ox 97.7 F L 79 14 148/61 H 99 09/03/19 09:09 09/03/19 09:09 09/03/19 09:09 09/03/19 09:09 09/03/19 09:09 Oxygen Flow Rate (L/min) [ 0 AMBULATING on Room Air] Oxygen Flow Rate (L/min) [At 0 REST on Room Air] Oxygen Flow Rate (L/min) 1.5 Oxygen Delivery Method Room Air Weight: 203 lb 14.841 oz Body Mass Index (BMI) 32.9 Orthostatic Vital Signs Start: 08/31/19 16:33 Freq: q24h Status: Active Protocol: Activity Type Activity Date Activity User E-Sign Co-Sign Detail Recorded Client Recorded Date Recorded By Document 09/02/19 12:26 [facility] [id number] 09/02/19 12:27 [facility] 09/02/19 12:26 Orthostatic Vitals Standing -Blood Pressure (90/60-120/80 mm Hg) 160/70 H -Extremity Use Right Arm -Pulse Rate (60-100 beats/min) 92 Sitting -Blood Pressure (90/60-120/80 mm Hg) 142/66 H -Extremity Use Right Arm -Pulse Rate (60-100 beats/min) 85 Lying -Blood Pressure (90/60-120/80 mm Hg) 133/68 H -Extremity Use Right Arm -Pulse Rate (60-100 beats/min) 83 Intake and Output for Last 24 Hours 09/01/19 09/02/19 09/03/19 23:59 23:59 23:59 Intake Total 1140 / 1140 1170.00 / 1170.00 1230 / 1230 Output Total 1050 / 1050 Balance 1140 / 1140 120.00 / 120.00 1230 / 1230 Laboratory Results 09/03/19 05:50: Hgb 11.3 L, Hct 35.4 L 09/03/19 05:50: Sodium 140, Potassium 4.0, Chloride 109 H, Carbon Dioxide 26.0, Anion Gap 5, BUN 23 H, Creatinine 1.18 H, Estim Creat Clear Calc 37.97, Est GFR (MDRD) Af Amer 57 L, Est GFR (MDRD) Non-Af 47 L, BUN/Creatinine Ratio 19.5, Glucose 93, Calcium 8.7 Current Medications Acetaminophen (Tylenol) 650 mg PO Q6H PRN PRN PRN Reason: Pain Score 1-3/Temp > 100.7 F Al Hydroxide/Mg Hydroxide (Mylanta Ii) 30 ml PO Q6H PRN PRN PRN Reason: Gastric Burning Albuterol Sulfate (Ventolin Aerosols) 2.5 mg INHALATION Q2H PRN PRN PRN Reason: SOB/Wheezing Aspirin (Aspirin, Baby) 81 mg PO DAILY@0800 [facility] Last Admin: 09/03/19 09:12 Dose: 81 mg Documented by: Atorvastatin Calcium (Lipitor) 5 mg PO QHS [facility] Last Admin: 09/02/19 21:48 Dose: 5 mg Documented by: Citalopram Hydrobromide (Celexa) 40 mg PO DAILY [facility] Last Admin: 09/03/19 09:12 Dose: 40 mg Documented by: Enoxaparin Sodium (Lovenox) 90 mg SC Q12@0600,1800 [facility] Last Admin: 09/03/19 06:05 Dose: 90 mg Documented by: Gabapentin (Neurontin) 100 mg PO BIDCM [facility] Last Admin: 09/03/19 09:12 Dose: 100 mg Documented by: Gabapentin (Neurontin) 200 mg PO QHS [facility] Last Admin: 09/02/19 21:49 Dose: 200 mg Documented by: Sodium Chloride () 250 mls @ 15 mls/hr IV .[id number] PRN PRN Reason: Saline Flush Ipratropium [place] (Atrovent Nasal [place] (G)) 2 spray NASAL TID [facility] Last Admin: 09/03/19 06:03 Dose: 2 spray Documented by: Losartan Potassium (Cozaar) 50 mg PO QHS [facility] Last Admin: 09/02/19 21:48 Dose: 50 mg Documented by: Magnesium Hydroxide (Milk Of Magnesia) 30 ml PO DAILY PRN PRN PRN Reason: Constipation Morphine Sulfate () 2 mg IV Q3H PRN PRN PRN Reason: Pain Score 6-10/10 Nitroglycerin (Nitrostat) 0.4 mg SUBLINGUAL Q5M PRN PRN Reason: CARDIAC/CHEST PAIN Nortriptyline HCl (Pamelor) 50 mg PO QHS [facility] Last Admin: 09/02/19 21:49 Dose: 50 mg Documented by: Prochlorperazine Edisylate (Compazine Iv) 5 mg IV Q6H PRN PRN PRN Reason: NAUSEA/VOMITING Last Admin: 09/02/19 12:17 Dose: 5 mg Documented by: Sodium Chloride () 10 - 40 ml IV UD PRN PRN Reason: SALINE FLUSH Last Admin: 09/02/19 04:36 Dose: 10 ml Documented by: Tramadol HCl (Ultram) 100 mg PO Q6H PRN PRN PRN Reason: Pain Score 1-10/10 Last Admin: 09/01/19 21:19 Dose: 100 mg Documented by: Vitamin E (Vitamin E) 800 units PO DAILY [facility] Last Admin: 09/03/19 09:12 Dose: 800 units Documented by: Discharge Activity: Use Walker Call your doctor if you observe: Fever of 101 or Higher, Shortness of breath, Dizziness, Fainting spells, Swelling in the ankles, Chest pain Home Medications: Medications to take at Discharge Citalopram [Celexa] 40 mg PO DAILY 01/27/17 Fish Oil/Dha/Epa [Fish Oil 1,200 mg Fish Oil] 1 each PO DAILY 01/27/17 Nortriptyline HCl [Pamelor] 50 mg PO QHS 01/27/17 Simvastatin [Zocor] 10 mg PO QHS 01/27/17 Vitamin E Acetate [Vitamin E] 1,000 unit PO DAILY 01/27/17 traMADol [Ultram] 100 mg PO Q6H PRN PRN #90 tablet 02/05/17 Apixaban [Eliquis] 5 mg PO BID #74 tab 09/01/19 Acetaminophen [Tylenol Tablet] 650 mg PO Q6H PRN PRN tab 09/03/19 Gabapentin [Neurontin] 100 mg PO UD #90 cap 09/03/19 Losartan Potassium 100 mg PO QHS #30 tab 09/03/19 Following Prescrptions Were Given to Patient: Apixaban [Eliquis] 5 mg PO BID #74 tab Transmission Status: Received by [facility]/pharmacy #[id number] Losartan Potassium 100 mg PO QHS #30 tab Transmission Status: Received by [facility]/pharmacy #[id number] Gabapentin [Neurontin] 100 mg PO UD #90 cap Transmission Status: Received by [facility]/pharmacy #[id number] Other Amb Orders: Cardiac Holter Monitor, Set-Up [[facility]] Location: None Selected Primary Care Physician: Mahendra Brown MD [Primary Care Provider] - Please follow up with your Primary Care Physician in: 7-10days Please Follow Up With: Jj Smith MD When: 5 weeks Disposition: Home Minutes spent on discharge:: 35 Patient Condition:: Stable Medical Necessity - Tobacco Use Smoking Status: Never smoker Tobacco Use: Non-smoker Meaningful Use Info Meaningful Use Diagnoses (Choose all that apply): None applicable Code Visit Inpatient E&M: 55926 Disch Hosp
--- NOTE | 2019-09-03 12:00 | CASEMGMT ---
Pt to be sent home on Eliquis and med e-scribed to [facility] previously. Call to [facility] and per tech, pt's co-pay for Eliquis at this time is $152.68 and tech states that pt is in the donut hole for MCR as she has been paying more for meds lately. Pt/ updated on all at this time and pt provided with Eliquis 30 day free trial card with explanation at this time, voices understanding. Pt aware that she can ask PCP/cardiology about alternatives to Eliquis if co-pay is too expensive when she f/u's, voices understanding. Pt did not qualify for oxygen previously. Pt/ voice no further questions/concerns/needs at this time. Flores CRUZ CM
[2019-09-07 20:07] LABS: Protein C Antigen 111 % (60-150); Protein C, Functional 117 % (73-180)
[2019-09-08 11:45] LABS: Anti-Cardiolipin Ab, IgG, Qn < 9 GPL U/mL (0-14); Anti-Cardiolipin Ab, IgM, Qn < 9 MPL U/mL (0-12); Anti-Thrombin 3 AG, Immunol 119 % (72-124); Antithrombin 3 Function 109 % (75-135)
== END 2019-09-03 13:12 | disposition home or self-care (01) | DRG 176 ==
LOC: ED 12:12 → PCU 12:24
PROVIDERS: Hospitalist; Admitting Provider Internal Medicine; Emergency Provider Emergency Medicine; Family Provider Family Medicine; PCP Family Medicine; Referring Provider Internal Medicine; Visit Provider Internal Medicine
DX: I26.99 Other pulmonary embolism without acute cor pulmonale (principal); I12.9 Hypertensive chronic kidney disease with stage 1 through stage 4 chronic kidney disease, or unspecified chronic kidney disease; E78.5 Hyperlipidemia, unspecified; N18.3 Chronic kidney disease, stage 3 (moderate); R00.1 Bradycardia, unspecified; E66.9 Obesity, unspecified; Z68.32 Body mass index [BMI] 32.0-32.9, adult; G89.29 Other chronic pain; G47.33 Obstructive sleep apnea (adult) (pediatric); M54.9 Dorsalgia, unspecified; R94.6 Abnormal results of thyroid function studies; M19.90 Unspecified osteoarthritis, unspecified site; M54.10 Radiculopathy, site unspecified; F32.9 Major depressive disorder, single episode, unspecified; F41.9 Anxiety disorder, unspecified; R01.1 Cardiac murmur, unspecified; I95.1 Orthostatic hypotension; E86.0 Dehydration
CPT/HCPCS: 36415; 70450; 70551; 71045; 71275; 80048; 80061; 81001; 81240; 81241; 82550; 82962; 83036; 83735; 83880; 84100; 84146; 84436; 84443; 84484; 85014; 85018; 85025; 85300; 85301; 85302; 85303; 86147; 93005; 93306; 93970; 95819; 97116; 97161; 97166; 97530; 99285; Q9967; A4216

== ENCOUNTER → 2019-09-03 13:52 | Outpatient (CLI) | payer MEDICARE, SELFPAY ==
[2019-08-31 12:32] VITALS: BMI 32.9
== END ==
PROVIDERS: Family Provider Family Medicine; PCP Family Medicine; Visit Provider Internal Medicine
DX: R00.1 Bradycardia, unspecified (principal)
CPT/HCPCS: 93225; 93226

== ENCOUNTER 2019-09-20 14:32 | Emergency (ER) | payer MEDICARE, SELFPAY ==
[2019-08-31 12:32] VITALS: BMI 32.9
[2019-09-20 14:33] VITALS: BP 150/75; PULSE 89; RESP 18; TEMP 36.9; O2SAT 99; BMI 34.2
--- NOTE | 2019-09-20 15:14 | CT_ITS ---
STUDY: CT BRAIN WITHOUT CONTRAST REASON FOR EXAM: Female, 74 years old. RADIATION DOSAGE (If Supplied By Facility): CTDIvol = ( 60.81 ) mGy, DLP = ( 1067.08 ) mGycm TECHNIQUE: Transaxial CT imaging of the brain was performed without administration of intravenous contrast material. Individualized dose optimization techniques were used for this CT. COMPARISON: September 02, 2019 FINDINGS: Normal soft tissue structures. Normal calvarium. Normal size ventricles and extra-axial spaces for the patient's age. There is periventricular lucencies represent deep white matter ischemic changes. Normal basal ganglia and thalami. Normal brainstem. Normal cerebellum. There is no intracranial hemorrhage. There are no findings of an acute ischemic infarction. Normal visualized paranasal sinuses. CT/Brain/Head without Contrast IMPRESSION: The alexander-white matter ischemic changes are examination is unchanged since September 02, 2019 Electronically Signed: Korey Hernandez, at 15:59 EST Tel , Service support ,
[2019-09-20 15:15] VITALS: BP 158/82; PULSE 85; RESP 21; O2SAT 98
[2019-09-20 15:17] VITALS: BP 136/97
--- NOTE | 2019-09-20 15:17 | ED.VISSUMM ---
- ER Visit Summary Date of Service: 09/20/19 Chief Complaint: Hypertension History of Present Illness: The patient is a 74 F who was referred to the ED for hypertension. She was at her pain doctor's office today and her blood pressure was in the 180s and then when they rechecked it, it was in the 80s. For EMS, it was elevated. Nursing notified me that it was 150 on arrival. Patient takes losartan for blood pressure and has been compliant. She was recently admitted for shortness of breath. She was treated for PEs. She has been compliant with her therapy. She has some continued shortness of breath, but nothing new or worse. She denies chest pain. She has a very mild headache, but denies any other associated symptoms. Physical Examination: Afebrile and vital signs unremarkable except blood pressure 150/75. HEENT exam unremarkable. Heart regular. Lungs clear. Extremities nontender with no edema. Good strength and sensation. Cranial nerves grossly intact Test Results: CT brain pending. Emergency Department Course and Treatment: Left arm blood pressure 158/82 and right arm blood pressure 136/97. These values do not require emergency treatment. We will keep her on the monitor. Because she has a mild headache which is new and she is on blood thinners, will check a head CT. There is no indication for any further diagnostic testing. Repeat blood pressure was 136/97. Patient has no further symptoms or complaints. Patient will continue her home blood pressure medicine. Follow-up with her PCP for recheck of her blood pressure. Return right away or call 911 for any new or worsening symptoms. Treatment Plan: As above Disposition: Discharge Impression: 1. Hypertension, established diagnosis This note was generated with [employer] dictation software. It may contain incorrect words, spelling, and punctuation that were not noted in review of the chart prior to signing ED Disposition - Plan for ED Patient: Referrals: Mahendra Brown MD [Primary Care Provider] -
--- NOTE | 2019-09-20 16:15 | ED.DEP ---
ED Disposition - Plan for ED Patient: Instructions: HYPERTENSION, Established Referrals: Mahendra Brown MD [Primary Care Provider] -
[2019-09-20 16:29] VITALS: BP 155/68; PULSE 88; RESP 17; O2SAT 97
== END 2019-09-20 16:31 | disposition home or self-care (01) ==
LOC: ED 15:36
PROVIDERS: Emergency Provider Emergency Medicine; Family Provider Family Medicine; PCP Family Medicine
DX: I12.9 Hypertensive chronic kidney disease with stage 1 through stage 4 chronic kidney disease, or unspecified chronic kidney disease (principal); N18.9 Chronic kidney disease, unspecified; F32.9 Major depressive disorder, single episode, unspecified; Z79.899 Other long term (current) drug therapy
CPT/HCPCS: 70450; 99285

== ENCOUNTER → 2019-10-04 13:13 | Outpatient (CLI) | payer MEDICARE, SELFPAY ==
[2019-09-20 14:33] VITALS: BMI 34.2
== END ==
PROVIDERS: Family Provider Family Medicine; PCP Family Medicine; Referring Provider Family Medicine; Visit Provider Family Medicine
DX: I73.9 Peripheral vascular disease, unspecified (principal)
CPT/HCPCS: 93923

== ENCOUNTER → 2019-11-12 12:11 | Outpatient (CLI) | payer MEDICARE, SELFPAY ==
[2019-10-12 10:35] VITALS: BMI 33.2
--- NOTE | 2019-11-12 12:20 | CT_ITS ---
STUDY: CARDIAC CALCIUM SCORING - CT CHEST REASON FOR EXAM: Female, 74 years old. CHEST PAIN/KAYE. RADIATION DOSAGE (If Supplied By Facility): CTDIvol = ( 23.93 ) mGy, DLP = ( 1142.33 ) mGycm TECHNIQUE: Axial non-enhanced images were acquired through the heart for the sole purpose of measuring coronary artery calcium. Individualized dose optimization techniques were used for this CT. COMPARISON: None. FINDINGS: Calculated calcium score is 0. There is calcific plaque in the aorta overlapping the origins of the left main and RCA. However, overall cardiovascular event risk is only minimally increased with risk category being equivalent to minimal plaque burden. Total Calcium Score: 0 Refer to contrast portion of the examination for further details. IMPRESSION: 1. Calcium Score of near 0 places the patient in the lowest population percentile risk category. 2. Future estimated risk of adverse cardiovascular events at 5-10% over the next 10 years. Please go to: [email or web address].[email or web address] , for a description of the calculator. Electronically Signed: Radha Don, at 15:19 EST Tel , Service support , STUDY: CARDIAC CALCIUM SCORING - CT CHEST REASON FOR EXAM: Female, 74 years old. CHEST PAIN/KAYE. RADIATION DOSAGE (If Supplied By Facility): CTDIvol = ( 23.93 ) mGy, DLP = ( 1142.33 ) mGycm TECHNIQUE: CT of the heart was performed with IV contrast. Please refer to patient''s chart for description of nursing technique including medications administered. Individualized dose optimization techniques were used for this CT. COMPARISON: None. FINDINGS: Coronary arteries have normal origins with a right dominant system. There is minimal plaque without stenosis. There is small amount of calcified aortic plaque close to the origins of the left main and RCA without stenosis. Cardiac chambers are normal in size and shape. There is no prior transmural myocardial infarction. Pericardium is normal. Ejection fraction is normal. Lungs are clear. Lower airways are patent. Pleural surfaces are intact. There is a 1.3 cm hypodense segment 2 hepatic lesion, incompletely evaluated. CT/Limited Chest CT w/CCTA IMPRESSION: 1. Patent coronary arteries. 2. Mild atherosclerosis. Low future risk of adverse cardiovascular events estimated at less than 10% over the next 10 years. 3. Normal cardiac anatomy. 4. Normal systolic function. 5. Left hepatic lesion, refer to ultrasonography for further assessment. Electronically Signed: Radha Don, at 15:24 EST Tel , Service support ,
[2019-11-12 12:51] LABS: Anion Gap 4 (5-15); BUN 21 mg/dL (7-18); BUN/Creat Ratio 14.3 RATIO (10-20); Calcium,Total 9.7 mg/dL (8.5-10.1); Chloride 102 mmol/L (98-107); Creatinine, Serum 1.47 mg/dL (0.55-1.02); EST Glomerular Filtration Rate 37 mL/min (>60); Est Glom Filt Rate - Afr Amer 44 mL/min (>60); Glucose 107 mg/dL (74-106); Sodium Level 138 mmol/L (136-145)
[2019-11-12 14:00] VITALS: BP 116/96; PULSE 63; RESP 16; O2SAT 96; BMI 33.4
[2019-11-12 14:17] VITALS: BP 116/96; PULSE 63
[2019-11-12] MEDS: Nitroglycerin SL (ED/IMG/CATH) 0.4 MG TABLET SUBLINGUAL (14:17)
[2019-11-12 14:29] VITALS: BP 130/61; PULSE 67; RESP 16; O2SAT 95
--- NOTE | 2019-11-18 13:28 | CA.SCORE ---
Calcium Scoring Date of Study:: 11/12/19 Coronary Calcium Scoring: High-resolution Computed Tomographic imaging of the chest was performed on [ ], with particular attention paid to the coronary arteries. Images from the examination were analyzed for the presence and extent of coronary artery calcification , using coronary calcium quantification software. The patient tolerated the procedure well and there were no complications. The results of the coronary calcification analysis are provided below. - Findings Left Main (LM): 0 Left Anterior Descending (LAD): 0 Left Circumflex (LCX): 0 Right Coronary Artery (RCA): 0 Total Agatston Score: 0 Percentile Rankin Calcium Scoring Interpretation: 0 No identifiable atherosclerotic plaque. Very low cardiovascular disease risk. <5% chance of presence coronary artery disease A Negative Examination
== END ==
PROVIDERS: Family Provider Family Medicine; PCP Family Medicine; Referring Provider Specialist; Visit Provider Specialist
DX: R07.9 Chest pain, unspecified (principal); R06.09 Other forms of dyspnea; E78.5 Hyperlipidemia, unspecified; I12.9 Hypertensive chronic kidney disease with stage 1 through stage 4 chronic kidney disease, or unspecified chronic kidney disease; N18.3 Chronic kidney disease, stage 3 (moderate)
CPT/HCPCS: 36415; 75571; 75574; 76380; 80048; Q9967

== ENCOUNTER → 2019-12-22 14:08 | Outpatient (CLI) | payer MEDICARE, SELFPAY ==
[2019-12-15 13:42] VITALS: BMI 34.3
--- NOTE | 2019-12-22 14:13 | RAD_ITS ---
STUDY: X-RAY CHEST REASON FOR EXAM: Female, 74 years old. RT SIDE RIB PAIN, NKI, HX PE TECHNIQUE: PA and lateral views of the chest. COMPARISON: Prior study of 08/31/2019 FINDINGS: The lungs are clear and expanded. There is no demonstrated pleural abnormality. Normal size heart. Normal mediastinum and eleazar. There is prominence of the pulmonary hilar arteries and peripheral pulmonary arteries, consistent with congestive heart failure (CHF). There are calcified plaques of the aortic arch. Normal visualized thoracic spine. Normal visualized ribs, clavicles, and shoulders. Spinal fusion rods are seen in the visualized upper lumbar region. There is no demonstrated abnormality of the visualized soft tissue structures of the upper abdomen. RAD/Chest PA and Lateral IMPRESSION: Mild CHF, new in the interval. Calcified plaques of the aortic arch. Electronically Signed: Arjun Chavez MD at 16:46 EST , Service support ,
== END ==
PROVIDERS: PCP Family Medicine; Referring Provider Nurse Practitioner Family; Visit Provider Nurse Practitioner Family
DX: Z86.711 Personal history of pulmonary embolism (principal)
CPT/HCPCS: 71046

== ENCOUNTER → 2020-01-12 13:31 | Outpatient (CLI) | payer MEDICARE, SELFPAY ==
[2019-12-15 13:42] VITALS: BMI 34.3
--- NOTE | 2020-01-12 13:57 | RAD_ITS ---
STUDY: X-RAY - BILATERAL RIBS WITH CHEST REASON FOR EXAM: Female, 74 years old. Bilateral posterior lower rib pain for several weeks, no injury TECHNIQUE - RIBS: 4 view(s) of the ribs. TECHNIQUE - CHEST: Single PA view of the chest. COMPARISON: Comparison is made with prior chest radiograph dated December 22, 2019. FINDINGS - RIBS : Normal visualized ribs without a demonstrated fracture. FINDINGS - CHEST: The lungs are clear and expanded. There is no demonstrated pleural abnormality. Normal size heart. Normal mediastinum and eleazar. Normal visualized pulmonary arteries. There is atherosclerotic tortuosity of the aortic arch and descending thoracic aorta. Normal visualized thoracic spine. Normal visualized ribs, clavicles, and shoulders. Prior fusion of the lumbar spine. There is no demonstrated abnormality of the visualized soft tissue structures of the upper abdomen. RAD/Ribs Mychal Min 4V w/PA Chest IMPRESSION: RIBS: Normal x-ray examination of the bilateral ribs. CHEST: Normal x-ray examination of the chest. Electronically Signed: Nhan Anderson, at 14:58 EDT , Service support ,
[2020-01-12 15:36] LABS: Absolute Lymphocyte Count 1.68 X10^3/uL (0.83-4.51); Absolute Neutrophil Count 2.4 X10^3/uL (2.0-7.7); Basophil# 0.05 X10^3/uL; Eosinophil# 0.34 X10^3/uL; Eosinophils% 6.8 % (0-5); Hematocrit 35.8 % (37-47); Hemoglobin 11.3 g/dL (12.0-15.0); Lymphocyte # 1.68 X10^3/ul (4.0); Lymphocyte % 33.5 % (19-41); Mean Corp Hgb Conc 31.6 g/dL (32-36); Mean Corpuscular Hgb 29.4 pg (27.0-32.0); Mean Platelet Vol. 9.8 fl (6.2-12.0); NRBC Flagged by Analyzer 0 % (0-5); Neutrophil # 2.42 X10^3/uL (2.7-7.7); Neutrophil % 48.3 % (47-70); Platelet Count 232 K/mm3 (150-450); RBC Distribution Width CV 12.3 % (11.6-14.6); RBC Distribution Width SD 41.8 fl (35.1-43.9); Red Blood Count 3.85 M/mm3 (4.2-5.4)
[2020-01-12 16:09] LABS: BNP,B-Type NATRIURETIC PEPTIDE 15.4 pg/mL (0-100)
[2020-01-12 16:47] LABS: AST(SGOT) 27 U/L (15-37); Alanine Aminotransfer ALT/SGPT 33 U/L (13-56); Albumin, Serum 3.7 g/dL (3.2-5.0); Alkaline Phosphatase 92 U/L (45-117); Anion Gap 6 (5-15); BUN 17 mg/dL (7-18); BUN/Creat Ratio 13.3 RATIO (10-20); Calcium,Total 9.3 mg/dL (8.5-10.1); Chloride 104 mmol/L (98-107); Creatinine, Serum 1.28 mg/dL (0.55-1.02); EST Glomerular Filtration Rate 43 mL/min (>60); Est Glom Filt Rate - Afr Amer 52 mL/min (>60); Globulin 3.6 g/dL (2.2-4.2); Glucose 89 mg/dL (74-106); Potassium 3.7 mmol/L (3.5-5.1); Protein, Total 7.3 g/dL (6.4-8.2); Sodium Level 138 mmol/L (136-145)
== END ==
LOC: LAB.FUTURE 13:32 → BFHLAB 13:33
PROVIDERS: PCP Family Medicine; Referring Provider Family Medicine; Visit Provider Family Medicine
DX: R07.81 Pleurodynia (principal); I50.9 Heart failure, unspecified; N18.9 Chronic kidney disease, unspecified; R06.00 Dyspnea, unspecified
CPT/HCPCS: 36415; 71111; 80053; 83880; 85025

== ENCOUNTER → 2020-11-14 15:06 | Outpatient (CLI) | payer MEDICARE, SELFPAY ==
[2020-06-13 13:32] VITALS: BMI 34.8
[2020-11-14 17:05] LABS: Absolute Lymphocyte Count 1.79 X10^3/uL (0.83-4.51); Absolute Neutrophil Count 2.1 X10^3/uL (2.0-7.7); Basophil# 0.05 X10^3/uL; Eosinophil# 0.27 X10^3/uL; Eosinophils% 5.6 % (0-5); Hematocrit 36.3 % (37-47); Hemoglobin 11.6 g/dL (12.0-15.0); Lymphocyte # 1.79 X10^3/ul (4.0); Lymphocyte % 37.2 % (19-41); Mean Corpuscular Hgb 29.8 pg (27.0-32.0); Mean Corpuscular Volume 93.3 fL (81-99); Monocyte# 0.55 X10^3/uL; Monocyte% 11.4 % (0-10); NRBC Flagged by Analyzer 0 % (0-5); Neutrophil # 2.13 X10^3/uL (2.7-7.7); Neutrophil % 44.4 % (47-70); Platelet Count 219 K/mm3 (150-450); RBC Distribution Width CV 12.1 % (11.6-14.6); RBC Distribution Width SD 41.5 fl (35.1-43.9); Red Blood Count 3.89 M/mm3 (4.2-5.4); White Blood Count 4.8 K/mm3 (4.4-11.0)
[2020-11-14 17:31] LABS: Vitamin B12 1094 pg/mL (211-911)
[2020-11-14 17:39] LABS: Anion Gap 5 (5-15); BUN 18 mg/dL (7-18); BUN/Creat Ratio 12.8 RATIO (10-20); Calcium,Total 8.9 mg/dL (8.5-10.1); Chloride 104 mmol/L (98-107); Creatinine, Serum 1.41 mg/dL (0.55-1.02); EST Glomerular Filtration Rate 38 mL/min (>60); Est Glom Filt Rate - Afr Amer 47 mL/min (>60); Glucose 102 mg/dL (74-106); Iron 83 ug/dL (50-170); Potassium 4.1 mmol/L (3.5-5.1); Sodium Level 139 mmol/L (136-145); Thyroid Stim Hormone (TSH) 1.55 uIU/mL (0.358-3.74)
== END ==
PROVIDERS: PCP Family Medicine; Visit Provider Family Medicine
DX: F41.9 Anxiety disorder, unspecified (principal); G62.9 Polyneuropathy, unspecified; I49.9 Cardiac arrhythmia, unspecified; I10 Essential (primary) hypertension
CPT/HCPCS: 36415; 80048; 82607; 83540; 84443; 85025

== ENCOUNTER → 2021-03-02 11:53 | Outpatient (CLI) | payer MEDICARE, SELFPAY ==
[2020-06-13 13:32] VITALS: BMI 34.8
--- NOTE | 2021-03-02 11:57 | ECHOD_ITS ---
Reason For Study: KAYE Procedure This was a 2D Doppler, Color Flow transthoracic echocardiogram. Exam performed in department. Left Ventricle Normal LV size. Mild concentric left ventricular hypertrophy. Left ventricular systolic function is normal. The estimated ejection fraction is 60 %. Stage 1 diastolic dysfunction. No regional wall motion abnormalities noted. Right Ventricle Normal RV size. Normal systolic function. Atria Normal left atrium. Normal right atrium. Mitral Valve Normal mitral valve. Tricuspid Valve Normal tricuspid valve. Mild tricuspid valve insufficiency. Pulmonary artery systolic pressure is 24 mmHg. Aortic Valve Normal aortic valve. Trisinus/trileaflet aortic valve. Pulmonic Valve Normal pulmonic valve. Great Vessels Normal aortic root. The pulmonary artery is normal size. Normal inferior vena cava. Pericardium/Pleural No pericardial effusion. MMode/2D Measurements & Calculations LVIDd: 3.2 cm IVSd: 1.3 cm LAV(MOD-bp): 23.0 ml LVIDs: 2.2 cm LVPWd: 1.3 cm LAV(MOD-bp) Indexed: 11.1 ml/m2 RVDd: 3.3 cm FS: 30.8 % LAV(MOD-sp2): 21.7 ml LAV(MOD-sp4): 24.1 ml SV(MOD-sp4): 42.3 ml LVAd ap4: 24.4 cm2 LVAd ap2: 19.6 cm2 LVLd ap4: 7.5 cm LVLd ap2: 7.8 cm EDV(MOD-sp4): 64.6 ml EDV(MOD-sp2): 41.0 ml EDV(sp4-el): 68.0 ml EDV(sp2-el): 41.6 ml LVAs ap4: 12.9 cm2 LVAs ap2: 10.2 cm2 LVLs ap4: 6.4 cm LVLs ap2: 6.6 cm ESV(MOD-sp4): 22.3 ml ESV(MOD-sp2): 13.4 ml ESV(sp4-el): 21.9 ml ESV(sp2-el): 13.3 ml EF(MOD-sp4): 65.5 % EF(MOD-sp2): 67.3 % EF(sp4-el): 67.8 % SV(MOD-sp2): 27.6 ml SV(sp4-el): 46.1 ml LA A4 area: 11.2 cm2 LA dimension(2D): 2.5 cm RA A4 area: 10.2 cm2 Doppler Measurements & Calculations MV E max endy: 74.7 cm/sec Lat Peak E' Endy: 4.9 cm/sec Med Peak E' Endy: 5.9 cm/sec MV A max endy: 111.8 cm/sec E/E' lat: 15.2 E/E' med: 12.7 MV E/A: 0.67 Ao V2 max: 127.2 cm/sec LV V1 max: 101.3 cm/sec PA V2 max: 96.1 cm/sec Ao max P.5 mmHg LV V1 max P.1 mmHg TR max endy: 225.9 cm/sec TR max P.4 mmHg ECHO/Echo Complete Interpretation Summary Normal LV size. Mild concentric left ventricular hypertrophy. Left ventricular systolic function is normal. The estimated ejection fraction is 60 %. Stage 1 diastolic dysfunction. Ordering Physician: Brian Daniels Referring Physician: Brian Daniels V Performed By: Nata Zambrano RDCS
== END ==
PROVIDERS: PCP Family Medicine; Referring Provider Internal Medicine Pulmonary Disease; Visit Provider Internal Medicine Pulmonary Disease
DX: R60.0 Localized edema (principal); R06.00 Dyspnea, unspecified
CPT/HCPCS: 93306

== ENCOUNTER 2021-11-19 15:47 | Observation (INO) | payer MEDICARE, SELFPAY ==
--- NOTE | 2021-11-07 10:16 | EKG12_ITS ---
Test Reason : PRE OP Blood Pressure : / mmHG Vent. Rate : 091 BPM Atrial Rate : 091 BPM P-R Int : 168 ms QRS Dur : 086 ms QT Int : 342 ms P-R-T Axes : 064 038 054 degrees QTc Int : 420 ms Normal sinus rhythm Septal infarct , age undetermined Abnormal ECG Confirmed by GREGORY ROMANO, CAROLYNE ([id number]), manager editorial NORAH BECKHAM ([id number]) on 11/08/2021 7:51:43 AM Referred By: Saud Villa Confirmed By:CAROLYNE JENKINS MD
--- NOTE | 2021-11-07 10:30 | RAD_ITS ---
HISTORY: preop. TECHNIQUE: XR Chest 2 Views. # of images incl. paperwork: 2. COMPARISON: 01/12/2020. FINDINGS: CARDIOMEDIASTINAL STRUCTURES: Cardiac silhouette not enlarged. Mediastinal contour unremarkable with calcification of the aortic knob. LUNGS: Radiographically clear. PLEURA: No pleural effusion or pneumothorax. OSSEOUS STRUCTURES: Lumbar spinal fusion hardware noted. RAD/Chest PA and Lateral IMPRESSION: No radiographic evidence of acute cardiopulmonary disease. at 0828 Reported and signed by: Karin Landa MD Electronically Signed: Karin Landa MD at 8:27 EST Tel , Service support ,
[2021-11-07 11:32] LABS: Absolute Lymphocyte Count 1.63 X10^3/uL (0.83-4.51); Absolute Neutrophil Count 2.4 X10^3/uL (2.0-7.7); Basophil# 0.05 X10^3/uL; Eosinophil# 0.31 X10^3/uL; Eosinophils% 6.3 % (0-5); Hematocrit 35.5 % (37-47); Hemoglobin 11.6 g/dL (12.0-15.0); Lymphocyte # 1.63 X10^3/ul (0.83-4.51); Lymphocyte % 33.3 % (19-41); Mean Corp Hgb Conc 32.7 g/dL (32-36); Mean Corpuscular Hgb 30.4 pg (27.0-32.0); Mean Corpuscular Volume 93.2 fL (81-99); Mean Platelet Vol. 9.7 fl (6.2-12.0); Monocyte# 0.46 X10^3/uL; Monocyte% 9.4 % (0-10); NRBC Flagged by Analyzer 0 % (0-5); Neutrophil # 2.43 X10^3/uL (2.7-7.7); Neutrophil % 49.8 % (47-70); Platelet Count 197 K/mm3 (150-450); RBC Distribution Width CV 11.9 % (11.6-14.6); Red Blood Count 3.81 M/mm3 (4.2-5.4); White Blood Count 4.9 K/mm3 (4.4-11.0)
[2021-11-07 11:37] LABS: Partial Thromboplast Time 26.8 Seconds (24.1-36.2); Prothrombin Time (Protime)PT. 12.9 SECONDS (11.7-14.9)
[2021-11-07 12:01] LABS: Anion Gap 4 (5-15); BUN 21 mg/dL (7-18); BUN/Creat Ratio 15.9 RATIO (10-20); Calcium,Total 9.7 mg/dL (8.5-10.1); Chloride 105 mmol/L (98-107); Creatinine, Serum 1.32 mg/dL (0.55-1.02); EST Glomerular Filtration Rate 41 mL/min (>60); Est Glom Filt Rate - Afr Amer 50 mL/min (>60); Glucose 119 mg/dL (74-106); Sodium Level 137 mmol/L (136-145)
[2021-11-07 12:03] LABS: AST(SGOT) 15 U/L (15-37); Alanine Aminotransfer ALT/SGPT 18 U/L (13-56); Albumin, Serum 3.7 g/dL (3.2-5.0); Alkaline Phosphatase 115 U/L (45-117); Bilirubin, Direct 0.12 mg/dL (0.00-0.30); Globulin 3.6 g/dL (2.2-4.2); Magnesium 2.2 mg/dL (1.6-2.6); Protein, Total 7.3 g/dL (6.4-8.2)
[2021-11-19] VITALS (12 sets, daily range): BP systolic 92–153; BP diastolic 46–80; PULSE 69–95; RESP 14–18; TEMP 35.9–37.1; O2SAT 92–100; BMI 35.6
[2021-11-19] MEDS: Lactated Ringers 1,000 ML 999 ML IV (09:39)
[2021-11-19] MEDS: Acetaminophen 500 MG Tablet 1000 MG PO ×3 (09:41→22:48)
[2021-11-19] MEDS: Celecoxib 200 MG Capsule 400 MG PO (09:41)
[2021-11-19 09:46] LABS: Bedside Glucose 82 mg/dL (70-110)
[2021-11-19] MEDS: Cefazolin 2 GM in 0.9% Normal Saline 100 ML IV (11:00)
[2021-11-19] MEDS: Lactated Ringers 1,000 ML 125 ML IV ×3 (11:00→22:48)
[2021-11-19] MEDS: dexAMETHasone 10 MG/ML Vial IV (11:05)
--- NOTE | 2021-11-19 11:30 | FEM_PTH ---
PATIENT: MOISÉS JIMENEZ LOC: [facility] U#:[id number] AGE/SX: 76/F ROOM: OK315 RE11/19/[address]: Dr. Yaneli Pantoja MD : 1945 BED: 1 DIS: 11/21/2021 SPEC #: [id number] RECD: 11/19/21 14:32 STATUS: SEUN [place] #: [id number] YESENIA: 11/19/21 11:[address]: Saud Villa DEPT: SURGICAL PATHOLOGY RECD BY: Anette Suggs ENTERED: 11/20/21 11:06 SP TYPE: FEM HEAD OTHR DR: Dr. Mahendra Brown MD Tissues: Femoral region, NOS Procedures: Decalcification bone/plaque Surgery Specimen Level IV HEADER OPERATION: ERAS, total hip replacement PRE-OP DIAGNOSIS: Grade 4 osteoarthritis right hip TISSUE SUBMITTED: Right hip bone MICROSCOPIC DIAGNOSIS Right hip bone, total hip replacement/resection: Femoral head with degenerative osteoarthritic changes. Fragments of fibroadipose tissue, fibroconnective tissue and reactive synovial tissue. DEL:dory 11/23/2021 MICROSCOPIC DESCRIPTION Slides are reviewed. GROSS DESCRIPTION Received is one container labeled with the patient's name and designated right hip bone. The specimen consists of a mccoy femoral head with portion of femoral neck. The femoral head measures 4 x 5 x 4 cm and the femoral neck measures up to 2 cm in length. The articular surface displays prominent osteophyte formation, eburnation and bone erosion. Two pieces of soft tissue is attached at the top of the femoral head measuring in aggregate 2.5 x 0.6 x 0.2 cm. Also present in the specimen container are detached pieces of bone measuring in aggregate 3.5 x 2 x 1 cm. Cpr Instructor sections are submitted in two cassettes as follows: 1 ? entire soft tissue, 2 - bone after decalcification. / DEL:dory 11/20/2021 TC:5 CPT: 34765, [id number]
--- NOTE | 2021-11-19 12:27 | OP.PCM_ITS ---
Report of Operation Date of Procedure: 11/19/21 Pre-Operative Diagnosis: OA right hip Post-Operative Diagnosis: same Surgery/Procedure Performed:: Right THR Description of Surgical Findings:: Report of Operation Date of Procedure: 11/19/2021 Pre-Operative Diagnosis: OA right hip Post-Operative Diagnosis: same Surgery/Procedure Performed: [right ] THR forest logistics manager: Reyes Hdez PA-C Type of Anesthesia: spinal Anesthesiologist: Andreas Aleman M.D. Specimen's removed: bone Estimated Blood Loss (75 mL): Implants: Lisbeth Trident tritanium size 50 cup, neutral MDM liner, size 7 Accolade 2 stem Surgical Indications: Patient has severe end-stage osteoarthritic changes in the [right ] hip. They have failed conservative measures including activity modification, anti- inflammatories, use of assistive devices. This to the point where the pain affects their ability to enjoy life and complete activities of daily living without discomfort. Patient has elected to undergo the above procedure Procedure Description: The patient was greeted in the preoperative area the [right ] hip was marked with surgical marker preoperative antibiotics administered. The patient was then taken to or suite in stable condition. Preoperative tranexamic acid was also utilized. Once the patient was placed in the supine position on the operating room table and once adequate anesthesia was obtained they were then placed in the lateral decubitus position with the surgical hip facing the field. All bony prominences were well-padded. A commercial hip position was utilized. The appropriate extremity was then prepped and draped in usual sterile fashion. Ioban was placed on the skin. Surgical timeout was performed and surgery was commenced. A standard posterior approach to the hip was then performed. Incision was planned and carried out with a #10 blade scalpel. Dissection was then carried length of the incision to the IT band which was split proximally and distally. A Charnley retractor was then placed for soft tissue retraction exposing the piriformis. A standard posterior capsulotomy was performed. Severe eburnation of bone was noted and periarticular osteophytes were identified consistent with severe end-stage osteoarthritis. A femoral neck osteotomy guide was used to torsten the proximal femur. A femoral osteotomy was then created approximately 1 fingerbreadth above the lesser trochanter. This was measured and placed on the back table. Once this was complete acetabular retractors were placed anteriorly and posteriorly. Labrum was then removed from the acetabulum exposing the entire cup of the acetabulum. Sequential reaming was then commenced and the acetabulum was medialized and sequentially widened in order to accommodate appropriate size cup. The acetabular cup was then impacted into position to the appropriate depth referencing approximately [45 degrees ] anteversion and [45 degrees ]of inclination. An appropriate size MDM liner was then placed. Attention was then turned to the femoral preparation. The hip was placed in the 90/90 position and a lateralizing box osteotome was utilized. Femoral starting awl was used followed by sequential broaching to the appropriate size. Excellent purchase was obtained with the stem no stem subsidence and excellent rotational stability was confirmed. A calcar reamer was then used in the trial head neck was placed on the broach. The hip was then located and taken through full range of motion flexion internal and external rotation as well as extension. Excellent stability was noted no impingement was identified of the components and leg lengths appear to be appropriate. The hip was at this point dislocated and the trial femoral components were removed. The final femoral stem was then implanted and impacted to the appropriate depth. Again excellent purchase was obtained no stem subsidence or rotational instability was noted. The hip was once again trialed and confirmation of leg length and stability was performed. Soft tissue tension also appeared to be appropriate. At this point the hip was redislocated and the trunnion was cleaned and dried meticulously in the appropriate size MDM femoral head was placed on the clean dry trunnion using a 12/14 Boyd taper. The hip was once again relocated and again taken through full range of motion. I did inject a cocktail of postoperative pain medication in the deep and superficial tissues. Copious irrigation was performed. Anatomic closure of the piriformis tendon was performed through drill holes in the greater trochanter. A #1 Vicryl 0 Vicryl was utilized in subcutaneous tissue and surgical enmanuel were placed in the skin. A well-padded nonadherent dressing was applied. Patient was taken to PACU in stable condition. No complications were identified. Will follow standard postop protocol for total hip arthroplasty. My executive administrative assistant played a vital role in the procedure beginning with positioning, holding retraction of soft tissues, positioning the leg to optimize visualization during the procedure and assisting with wound closure. Post-op Plan: DVT ppx; Xarelto 10 mg daily x 2 weeks then ASA 81 mg BID x 2 weeks, thigh high compression stockings Follow up: in office in 2 weeks for wound check PT: to start POD #0 at hospital, outpatient PT should be arranged. Preoperative antibiotic: Ancef 2 grams IV Saud Villa DO Surgeon: Saud Villa forest logistics manager: Reyes Hdez Type of Anesthesia: Spinal Anesthesiologist: Andreas Aleman Estimated Blood Loss (mL): 75 cc Fluids Replaced: 1000 cc crystalloid Admit VTE Documentation VTE Present on Admission: No VTE Mechan Device Prophylaxis: SCD's and Thigh High ARIEL Hose VTE Pharm Prophylaxis ordered?: Yes
--- NOTE | 2021-11-19 13:00 | RAD_ITS ---
STUDY: X-RAY - PELVIS AND RIGHT HIP REASON FOR EXAM: Female, 76 years old. Post Op -- AP both hips on single sam/lateral of op hip PACU TECHNIQUE: 2 views of the pelvis and hip. COMPARISON: None. FINDINGS: There is a non-specific bowel gas pattern. Postoperative soft tissue changes. Normal bilateral iliac wings, sacroiliac joints and visualized sacrum. Normal bilateral superior and inferior pubic rami. Normal pubic symphysis. Normal bilateral ischial tuberosities. The patient is status post right hip replacement. There is good alignment. The patient also status post prior left total hip replacement. RAD/Hip Min 2 Views (Portable) IMPRESSION: Status post right hip replacement. There is good alignment. Postoperative soft tissue changes. Electronically Signed: Nhan Anderson MD at 13:40 EST , Service support ,
[2021-11-19] MEDS: oxyCODONE 5 MG Tablet PO ×2 (15:32→19:51)
--- NOTE | 2021-11-19 15:55 | PCS.PANDOC ---
PANDEMIC DOCUMENTATION INITIATED: Date: 06/11/2021 Time: 190
[2021-11-19] MEDS: Cefazolin 1 GM/50 ML BAG IV (18:57)
[2021-11-19] MEDS: Gabapentin 300 MG Capsule PO (20:46)
[2021-11-19] MEDS: Senna/Docusate Sodium 1 Tablet 2 TABLET PO (20:46)
[2021-11-19] MEDS: Atorvastatin Calcium 10 MG Tablet 5 MG PO (20:46)
[2021-11-19] MEDS: Losartan Potassium 100 MG Tablet PO (20:46)
[2021-11-19] MEDS: Nortriptyline 25 MG Capsule 50 MG PO (20:47)
[2021-11-20] VITALS (10 sets, daily range): BP systolic 107–144; BP diastolic 44–72; PULSE 79–115; RESP 16–18; TEMP 36.4–37.1; O2SAT 92–99
[2021-11-20] MEDS: Cefazolin 1 GM/50 ML BAG IV (02:35)
[2021-11-20 06:20] LABS: Hematocrit 27.3 % (37-47); Hemoglobin 8.6 g/dL (12.0-15.0); Mean Corp Hgb Conc 31.5 g/dL (32-36); Mean Corpuscular Volume 95.1 fL (81-99); Mean Platelet Vol. 9.9 fl (6.2-12.0); Platelet Count 142 K/mm3 (150-450); RBC Distribution Width CV 11.9 % (11.6-14.6); RBC Distribution Width SD 41.5 fl (35.1-43.9); Red Blood Count 2.87 M/mm3 (4.2-5.4); White Blood Count 5.9 K/mm3 (4.4-11.0)
[2021-11-20] MEDS: Acetaminophen 500 MG Tablet 1000 MG PO ×3 (06:42→23:07)
[2021-11-20] MEDS: Gabapentin 300 MG Capsule PO ×3 (06:42→21:19)
[2021-11-20] MEDS: Lactated Ringers 1,000 ML 125 ML IV (06:42)
[2021-11-20] MEDS: Rivaroxaban 10 MG Tablet PO (06:42)
[2021-11-20 07:11] LABS: Anion Gap 5 (5-15); BUN 19 mg/dL (7-18); BUN/Creat Ratio 14.8 RATIO (10-20); Calcium,Total 8.3 mg/dL (8.5-10.1); Chloride 107 mmol/L (98-107); Creatinine, Serum 1.28 mg/dL (0.55-1.02); EST Glomerular Filtration Rate 43 mL/min (>60); Est Glom Filt Rate - Afr Amer 52 mL/min (>60); Estimated Creatinine Clearance 33.91 ml/min; Glucose 155 mg/dL (74-106); Potassium 4.7 mmol/L (3.5-5.1); Sodium Level 135 mmol/L (136-145)
[2021-11-20] MEDS: Senna/Docusate Sodium 1 Tablet 2 TABLET PO ×2 (07:48→21:19)
[2021-11-20] MEDS: Citalopram 40 MG TABLET PO (07:48)
[2021-11-20] MEDS: Calcium Carbonate 500 MG Tablet PO (07:48)
[2021-11-20] MEDS: oxyCODONE 5 MG Tablet PO ×2 (07:49→12:14)
[2021-11-20] MEDS: Vitamin E 400 UNITS Capsule 800 UNITS PO (07:50)
[2021-11-20] MEDS: Cyanocobalamin 500 MCG Tablet 1000 MCG PO (07:50)
--- NOTE | 2021-11-20 07:50 | PN.ORTHO_ITS ---
Subjective Subjective Patient at bedside using bedside commode. Patient transfers well with aid of a walker. Patient states pain is well-managed. Patient denies chest pain, shortness of breath, calf pain, nausea vomiting. Patient has no other complaints at this time. Patient states that she hopes to go to TCU for her postop rehab, as she lives at home alone. Objective Data Objective Data Vital Signs: Vital Signs Temp Pulse Resp BP Pulse Ox 98.5 F 84 16 137/49 H 94 11/20/21 06:44 11/20/21 06:44 11/20/21 06:44 11/20/21 06:44 11/20/21 06:44 Oxygen Flow Rate (L/min) 4 Oxygen Delivery Method Room Air Weight: 100.3 kg Body Mass Index (BMI) 35.6 Intake & Output: Intake and Output for Last 24 Hours 11/18/21 11/19/21 11/20/21 23:59 23:59 23:59 Intake Total 3786 / 4286 2164.58 / 2164.58 Output Total 900 / 900 850 / 850 Balance 2886 / 3386 1314.58 / 1314.58 Lab / Micro Data Result Diagrams: 11/20/21 05:20 11/20/21 05:20 Labs: Laboratory Results - last 24 hr 11/19/21 09:24: POC Glucose 82 11/20/21 05:20: WBC 5.9, RBC 2.87 L, Hgb 8.6 L, Hct 27.3 L, MCV 95.1, MCH 30.0, MCHC 31.5 L, RDW Std Deviation 41.5, RDW Coeff of Joseph 11.9, Plt Count 142 L, MPV 9.9 11/20/21 05:20: Sodium 135 L, Potassium 4.7, Chloride 107, Carbon Dioxide 23.0, Anion Gap 5, BUN 19 H, Creatinine 1.28 H, Estim Creat Clear Calc 33.91, Est GFR (MDRD) Af Amer 52 L, Est GFR (MDRD) Non-Af 43 L, BUN/Creatinine Ratio 14.8, Glucose 155 H, Calcium 8.3 L Micro: Microbiology 11/07/21 10:53 Swab (Method) Nasal Screen MRSA/MSSA - Final Radiography Diagnostic Testing: Radiology Impression Hip X-Ray 11/19/21 13:00 IMPRESSION: Status post right hip replacement. There is good alignment. Postoperative soft tissue changes. Electronically Signed: Nhan Anderson MD at 13:40 EST , Service support , Physical Exam Narrative Patient alert and oriented. Patient is in no respiratory distress, speaking in full sentences. Patient's hemoglobin is 8.5, however patient has had normal saline running at 125 mL's per hour. Patient's vitals are all stable. Patient remained hemodynamically stable with ambulation and activity. The dressing is clean dry intact. Patient has good motion of the upper extremities without limitations. Patient has no signs and symptoms of DVT. No calf pain. N eurovascular patient was otherwise intact. Const alert and oriented x3 General Appearance: cooperative Eyes PERRL Psych mental status grossly normal and affect normal Assessment & Plan Assessment/Plan (1) S/P total right hip arthroplasty: PLAN: 1. Continue all pain medications as prescribed 2. Patient will start Xarelto 10 mg 1 p.o. daily for 2 weeks for postop DVT prophylaxis, then will begin aspirin 81 mg 1 p.o. every 12 hours 3. Encourage incentive spirometry 4. Continue physical therapy, weight-bear as tolerated with walker 5. Possible placement to TCU tomorrow. 6. Discontinue IV solutions. 7. Repeat CBC BMP tomorrow morning
--- NOTE | 2021-11-20 08:35 | CASEMGMT ---
Social Work Note SW reviewed chart. Pt wishes to discharge to TCU. SW placed a call to Liv with TCU, no beds available. RN CM/NANCY to follow up with pt. Niharika Barber MANAGER FAST FOOD, SAP PROJECT MANAGER
--- NOTE | 2021-11-20 09:50 | CASEMGMT ---
ANTHONY REY Assessment: Face to Face with pt for initial transition planning/care coordination assessment. RN KRISSY introduced self and role at [facility], pt voices understanding and consents to assessment. Pt is A/O x4 and answers all questions appropriately at this time. Pt sitting up in chair on RA in no distress with nursing instructor at bedside. Care providers, pharmacy, and demographics verified/updated. Admitting Dx: Rt THR PCP: Tyler Brown Specialists: CARLINE but she is unsure who her personnel security specialist is; Knapic, ortho; Sibilia, pulm Preferred Pharmacy: [facility] while inpatient Insurance: [place] MCR Prescription Benefit: yes LW/HPOA: Pt states she has a LW/DPOA and her DPOA is her Brian Krishnamurthy. She is aware this is not on file at [facility] and she may bring in to be scanned into the chart. LNOK: Brian Krishnamurthy, Living Arrangements: Pt lives with in a single story house with 2 steps to enter without a rail. Pt reports she was I in ADL's prior to surgery. Transportation: Pt drove self prior to surgery and denies concerns with transportation. DME/HHC/SNF: Pt has a CPAP, cane and walker at home. She denies hx of HHC but has been in a SNF post back surgery in [place]. Pt states she cannot go home at [place]. She states she has no one to help her at home. Patient was provided a list of SNF providers including quality and resource use data and consistent with the patient?s preferred geographic region, medical needs, and insurance network. The patient?s preferred provider is [facility], she is aware they have no beds, [facility]. Notified Tate CRUZ. Pt states no further concerns/needs. CM to follow. Advised pt to ask CM if any further question/concerns/needs arise, voices understanding. Pt Goal: SNF Plan: SNF
--- NOTE | 2021-11-20 09:58 | CASEMGMT ---
ANTHONY CM in to discuss ALTMAN form with patient. RN CM explained ALTMAN form, patient voiced understanding. Pt signed form and filed in chart. Pt provided with a copy of signed ALTMAN form. Patient had no further questions or concerns at this time.
[2021-11-20] MEDS: 0.9% Saline Lock 10 ML Syringe IV ×2 (10:25→15:02)
--- NOTE | 2021-11-20 11:24 | CASEMGMT ---
Social Work Note SW updated that pt's preferred SNF providers are 1.[facility] and 2.[facility]. SW placed a call to Kamille at [facility] and left message regarding referral. SW faxed referral to [facility]. Plan: [facility] pending acceptance and pre-cert Niharika Barber ELECTROMECHANICAL INSPECTOR, SUPERVISOR AGRICULTURAL EDUCATION
--- NOTE | 2021-11-20 13:35 | NURSING ---
pt back in bed, reverse trendelenburg. no dizziness currently, pt a& o x3, slow to respond. glucose 104/ vitals 121/54. pulse 84, spo2 94% on room air. pt states episodes of dizziness happen at home For years. spouse at bedside, pt able to identify him as such. pt rates pain level 9/10 out of 10/ pt resting in bed, arms/legs relaxed. pt distractible. bp now 111/52 pulse 80 supine. denies any jaw/neck/shoulder pain, denies any nausea. Dr. Mccabe paged at beginning of this event, dr. mccabe aware.
--- NOTE | 2021-11-20 13:45 | NURSING ---
bp 127/52 pulse 81. spo2 98% on room air. pt a& o x3, able to recall events, identify spouse. rates pain level 9/10 out of 10/10 . denies any nausea. pt again states that events like this have happened at home as well. remains supine position.
[2021-11-20 13:46] LABS: Bedside Glucose 104 mg/dL (70-110)
--- NOTE | 2021-11-20 13:50 | NURSING ---
as per pt report of this occurring while she has had prior hospitalizations- pt reports this has been happening since i was in my teens.
--- NOTE | 2021-11-20 14:54 | PCM.PN.HOSP ---
Subjective Subjective Mrs. Krishnamurthy is a 76-year-old white female who was admitted to [facility] on 11/19/2021 for an elective right total hip arthroplasty. She had been doing well and underwent therapy this morning without any issues however this afternoon when she went to get up with therapy she had a syncopal episode. Per discussion with nursing they suspected a vasovagal event and put her back in bed with her head down her vital signs were stable throughout the episode. Her initial blood pressure when she was back in bed was 121/54 with a heart rate of 104 with a repeat blood pressure 127/52 with a heart rate in the 70s. The patient indicates that she has had these episodes at home since she was in her teenagers. She does not recall her last episode however she was seen by cardiology on 06/27/2021 and reported at that time she had not had any since she had her pulmonary embolism back in 2019. The patient does not recall having any since that point time. She had an echocardiogram as part of her work-up done on 03/02/2021 that showed a normal EF at 60% with stage I diastolic dysfunction and mild concentric LVH and has undergone both Holter monitor and event monitor with the only abnormality being a 2.7-second pause that was associated with a presyncopal episode. Upon reviewing documentation, it appears that cardiology feels that these episodes are predominantly vasovagal in nature. The patient is comfortably lying in bed at this time and denies any chest pain, shortness of breath, nausea, vomiting, diarrhea, or constipation, tingling numbness or focal weakness. She is complaining of some right hip pain and states that her pain is worse than it was this morning when she was up with therapy and thinks that this contributed to her syncopal episode. She is somewhat groggy at this time but was just medicated with oxycodone for her hip pain. Objective Data Objective Data Vital Signs: Vital Signs Temp Pulse Resp BP Pulse Ox 97.6 F L 96 16 132/66 H 92 11/20/21 08:17 11/20/21 14:53 11/20/21 08:17 11/20/21 14:53 11/20/21 08:52 Oxygen Flow Rate (L/min) 4 Oxygen Delivery Method Room Air Weight: 100.3 kg Body Mass Index (BMI) 35.6 Intake & Output: Intake and Output for Last 24 Hours 11/18/21 11/19/21 11/20/21 23:59 23:59 23:59 Intake Total 3786 / 4286 2205.08 / 2205.08 Output Total 900 / 900 850 / 850 Balance 2886 / 3386 1355.08 / 1355.08 Lab / Micro Data Result Diagrams: 11/20/21 05:20 11/20/21 05:20 Labs: Laboratory Results - last 24 hr 11/20/21 05:20: WBC 5.9, RBC 2.87 L, Hgb 8.6 L, Hct 27.3 L, MCV 95.1, MCH 30.0, MCHC 31.5 L, RDW Std Deviation 41.5, RDW Coeff of Joseph 11.9, Plt Count 142 L, MPV 9.9 11/20/21 05:20: Sodium 135 L, Potassium 4.7, Chloride 107, Carbon Dioxide 23.0, Anion Gap 5, BUN 19 H, Creatinine 1.28 H, Estim Creat Clear Calc 33.91, Est GFR (MDRD) Af Amer 52 L, Est GFR (MDRD) Non-Af 43 L, BUN/Creatinine Ratio 14.8, Glucose 155 H, Calcium 8.3 L 11/20/21 13:36: POC Glucose 104 Micro: Microbiology 11/07/21 10:53 Swab (Method) Nasal Screen MRSA/MSSA - Final Physical Exam Const alert, oriented x3, no apparent distress and well nourished Constitutional Narrative: Obese older white female lying in bed, at bedside, patient appears comfortable but is somewhat groggy HEENT head/scalp atraumatic and moist oral mucous membranes HEENT Narrative: Mallampati is 3, dentures are in place, no thrush Head and Scalp: normocephalic Eyes PERRL and EOMs intact bilaterally Eyes Narrative: No scleral icterus Neck no lymphadenopathy and supple Neck Narrative: Trachea midline, neck is short and thick, thyroid is not enlarged Resp normal respiratory effort, no retractions, no use of accessory muscles and clear to auscultation bilaterally Auscultation: Negative for crackles, rales, rhonchi or wheezes Cardio regular rate, regular rhythm, S1 normal heart sound, S2 normal heart sound, no murmurs, no rub, no gallops, no clicks and no JVD GI normal to inspection, nondistended, normoactive bowel sounds, soft to palpation, non-tender and non-distended; Negative for hepatosplenomegaly GI Narrative: Obese Extremity no clubbing, cyanosis or edema Extremity Narrative: Right lower extremity with polar ice in place, bilateral lower extremity ARIEL hose in place Peripheral Pulses: Yes pulses 2+ throughout Neuro oriented x3, CN's II-XII intact bilaterally and no focal motor deficits Neuro Narrative: Limited movement of right lower extremity secondary to pain at the hip Sensorium / Orientation: awake and alert Speech: speech normal Assessment & Plan Assessment/Plan (1) Syncope: (2) Acute anemia: (3) S/P total right hip arthroplasty: (4) Orthostatic hypotension: (5) Thrombocytopenia: PLAN: Right hip osteoarthritis status post LORIE -Postop day 1 -Pain management per primary service -Bowel regimen -PT and OT -Fully anticoagulated with Xarelto given history of PE Syncopal episode -Patient had a syncopal episode this afternoon while getting up with physical therapy -Has had frequent syncope in the past dating back to when she was a teenager -Work-up done by cardiology as indicated this is likely vasovagal -Echocardiogram done 03/15/2021 showed a normal EF of 60% with stage I diastolic dysfunction and no valvular abnormalities -Has had a Holter monitor and event monitor with only abnormality being a 2.7-second pause -Per cardiology notes this has been attributed to vasovagal syncope and history seems consistent with this -I did discuss the case with cardiology and as long as the patient remained stable without any further episodes they recommend follow-up with them in 6 weeks and an appointment will be made today -Check TSH -Orthostatic vitals are positive and hemoglobin is down from 11.6-8.6 -Repeat CBC stat -We will give 1 L of IV fluids -Monitor on telemetry Orthostatic hypotension -Work-up as above -IV fluids -Repeat CBC Acute on chronic normocytic anemia -Baseline hemoglobin appears to be 11-12 -Currently 8.6 -Could be blood loss from surgery/dilutional with IV fluids from OR -Repeat stat hemoglobin -Transfuse if hemoglobin less than 7 or signs of obvious bleeding which there are not at this time -q 6 hr hgb x 2 -Patient is on Xarelto at baseline Thrombocytopenia -Again suspect this is dilutional -We will monitor -Repeat CBC pending History of pulmonary embolus -Patient has been reinitiated on her Xarelto 10 mg daily and it appears that this was started today -Oxygen saturations are stable on room air -Chest pain -Monitor clinically Hypertension -We will hold losartan at this time and reevaluate blood pressure tomorrow for reinitiation -As needed hydralazine is available for systolic pressure greater than 160 Hyperlipidemia -Continue simvastatin CKD stage IIIb -Serum creatinine is currently stable -Continue to monitor -Repeat BMP in a.m. Depression/anxiety -Continue citalopram -Continue nightly amitriptyline -Continue as needed lorazepam Obesity -Complicates treatment, prognosis, outcomes -BMI 35.7 -Recommend weight loss DVT prophylaxis -Continue full dose Xarelto Charges/Coding Visit Charges Inpatient E&M: 81516 [facility] Hosp L3
[2021-11-20] MEDS: Ondansetron 4 MG/2 ML Vial IV (15:01)
--- NOTE | 2021-11-20 15:03 | CASEMGMT ---
Social Work Note NANCY placed a call to Kamille at [facility] regarding referral. Kamille states they are able to accept pt, pre-certs are being waived, pt can discharge to SNF today. NANCY updated PA. Pt to stay at [facility] today, discharge to SNF tomorrow. NANCY reviewed chart. Pt with Anxiety and Depression. SW in to speak with pt. NANCY introduced self and role at [facility]. NANCY informed pt that [facility] is able to accept pt when pt is medically cleared. NANCY asked pt about Mental Health Hx. Pt confirms she has Anxiety and Depression. Pt states that she does Medication, unable to recall name of medication. Pt states she has never been in counseling/therapy before. NANCY placed a call to Kamille at [facility] and left message that pt will discharge to SNF tomorrow. Plan: [facility] skilled tomorrow Niharika Barber HITCHER, FLOUR MIXER
[2021-11-20] MEDS: 0.9% Normal Saline 1,000 ML 999 ML IV (15:27)
--- NOTE | 2021-11-20 15:38 | NURSING ---
Pt resting in bed and bolus initiated.
[2021-11-20 17:15] LABS: Absolute Lymphocyte Count 0.52 X10^3/uL (0.83-4.51); Absolute Neutrophil Count 4.1 X10^3/uL (2.0-7.7); Basophil# 0.02 X10^3/uL; Basophil% 0.4 % (0-1); Eosinophil# 0.11 X10^3/uL; Eosinophils% 2.1 % (0-5); Hematocrit 27.6 % (37-47); Hemoglobin 8.9 g/dL (12.0-15.0); Lymphocyte # 0.52 X10^3/ul (0.83-4.51); Lymphocyte % 9.7 % (19-41); Mean Corp Hgb Conc 32.2 g/dL (32-36); Mean Corpuscular Hgb 30.5 pg (27.0-32.0); Mean Corpuscular Volume 94.5 fL (81-99); Mean Platelet Vol. 9.6 fl (6.2-12.0); Monocyte# 0.55 X10^3/uL; Monocyte% 10.3 % (0-10); NRBC Flagged by Analyzer 0 % (0-5); Neutrophil # 4.13 X10^3/uL (2.7-7.7); Neutrophil % 77.3 % (47-70); POSITIVE DIFFERENTIAL YES; Platelet Count 155 K/mm3 (150-450); RBC Distribution Width CV 11.9 % (11.6-14.6); RBC Distribution Width SD 41.3 fl (35.1-43.9); Red Blood Count 2.92 M/mm3 (4.2-5.4); White Blood Count 5.3 K/mm3 (4.4-11.0)
[2021-11-20 17:17] LABS: Differential Indicated SCAN CRITERIA MET
[2021-11-20 18:22] LABS: Differential Comment SCANNED
[2021-11-20] MEDS: Atorvastatin Calcium 10 MG Tablet 5 MG PO (21:19)
[2021-11-20] MEDS: Nortriptyline 25 MG Capsule 50 MG PO (21:19)
[2021-11-20 22:53] LABS: Hematocrit 25.3 % (37-47); Hemoglobin 8.1 g/dL (12.0-15.0)
[2021-11-21] VITALS (7 sets, daily range): BP systolic 116–127; BP diastolic 50–77; PULSE 85–100; RESP 16–20; TEMP 36.4–37; O2SAT 95–99
[2021-11-21 05:48] LABS: Hemoglobin 8.7 g/dL (12.0-15.0); Mean Corp Hgb Conc 32.2 g/dL (32-36); Mean Corpuscular Hgb 30.5 pg (27.0-32.0); Mean Corpuscular Volume 94.7 fL (81-99); Mean Platelet Vol. 9.2 fl (6.2-12.0); Platelet Count 138 K/mm3 (150-450); RBC Distribution Width CV 12.3 % (11.6-14.6); RBC Distribution Width SD 42.7 fl (35.1-43.9); Red Blood Count 2.85 M/mm3 (4.2-5.4); White Blood Count 6.3 K/mm3 (4.4-11.0)
[2021-11-21] MEDS: Acetaminophen 500 MG Tablet 1000 MG PO ×2 (06:07→14:01)
[2021-11-21] MEDS: Gabapentin 300 MG Capsule PO ×2 (06:07→14:01)
[2021-11-21] MEDS: Rivaroxaban 10 MG Tablet PO (06:08)
[2021-11-21 07:11] LABS: Anion Gap 4 (5-15); BUN 21 mg/dL (7-18); BUN/Creat Ratio 15.3 RATIO (10-20); Calcium,Total 8.7 mg/dL (8.5-10.1); Chloride 109 mmol/L (98-107); Creatinine, Serum 1.37 mg/dL (0.55-1.02); EST Glomerular Filtration Rate 40 mL/min (>60); Est Glom Filt Rate - Afr Amer 48 mL/min (>60); Estimated Creatinine Clearance 31.68 ml/min; Glucose 108 mg/dL (74-106); Potassium 4.6 mmol/L (3.5-5.1); Sodium Level 139 mmol/L (136-145)
[2021-11-21 08:01] LABS: Thyroid Stim Hormone (TSH) 3.61 uIU/mL (0.358-3.74)
[2021-11-21] MEDS: Cyanocobalamin 500 MCG Tablet 1000 MCG PO (08:13)
[2021-11-21] MEDS: Citalopram 40 MG TABLET PO (08:13)
[2021-11-21] MEDS: Vitamin E 400 UNITS Capsule 800 UNITS PO (08:13)
[2021-11-21] MEDS: Senna/Docusate Sodium 1 Tablet 2 TABLET PO (08:13)
[2021-11-21] MEDS: Calcium Carbonate 500 MG Tablet PO (08:14)
--- NOTE | 2021-11-21 09:40 | CASEMGMT ---
Social Work Note SW spoke with Kamille at [facility]. Per Kamille, pt's insurance, [employer], is still waiving pre-certs so pt can discharge to [facility] today if medically cleared. SW to continue to follow. Plan: [facility] skilled when medically cleared Niharika Barber WEDDING COORDINATOR, MICA INSPECTOR
--- NOTE | 2021-11-21 09:53 | PN.HOSP_ITS ---
Subjective Subjective Patient seen and examined. She felt much better today and had no complaints. She denied any dizziness or lightheadedness, chest pain, nausea vomiting or diarrhea. Review of systems otherwise negative. Objective Data Objective Data Vital Signs: Vital Signs Temp Pulse Resp BP Pulse Ox 98.3 F 97 20 H 125/77 H 95 11/21/21 08:08 11/21/21 08:08 11/21/21 08:08 11/21/21 08:08 11/21/21 08:08 Oxygen Flow Rate (L/min) 2 Oxygen Delivery Method Room Air Weight: 221 lb 1.978 oz Body Mass Index (BMI) 35.6 Intake & Output: Intake and Output for Last 24 Hours 11/19/21 11/20/21 11/21/21 23:59 23:59 23:59 Intake Total 3786 / 4286 4955.08 / 4955.08 700 / 700 Output Total 900 / 900 1550 / 1550 1100 / 1100 Balance 2886 / 3386 3405.08 / 3405.08 -400 / -400 Lab / Micro Data Result Diagrams: 11/21/21 05:40 11/21/21 05:40 Labs: Laboratory Results - last 24 hr 11/20/21 13:36: POC Glucose 104 11/20/21 16:45: WBC 5.3, RBC 2.92 L, Hgb 8.9 L, Hct 27.6 L, MCV 94.5, MCH 30.5, MCHC 32.2, RDW Std Deviation 41.3, RDW Coeff of Joseph 11.9, Plt Count 155, MPV 9.6, Immature Gran % (Auto) 0.200, Neut % (Auto) 77.3 H, Lymph % (Auto) 9.7 L, Scurry % (Auto) 10.3 H, Eos % (Auto) 2.1, Baso % (Auto) 0.4, Absolute Neuts (auto) 4.1, Absolute Lymphs (auto) 0.52 L, Nucleated RBC % 0, Differential Comment SCANNED 11/20/21 22:39: Hgb 8.1 L, Hct 25.3 L 11/21/21 05:40: WBC 6.3, RBC 2.85 L, Hgb 8.7 L, Hct 27.0 L, MCV 94.7, MCH 30.5, MCHC 32.2, RDW Std Deviation 42.7, RDW Coeff of Joseph 12.3, Plt Count 138 L, MPV 9.2 11/21/21 05:40: Sodium 139, Potassium 4.6, Chloride 109 H, Carbon Dioxide 26.0, Anion Gap 4 L, BUN 21 H, Creatinine 1.37 H, Estim Creat Clear Calc 31.68, Est GFR (MDRD) Af Amer 48 L, Est GFR (MDRD) Non-Af 40 L, BUN/Creatinine Ratio 15.3, Glucose 108 H, Calcium 8.7 11/21/21 05:40: TSH 3.61 Micro: Microbiology 11/07/21 10:53 Swab (Method) Nasal Screen MRSA/MSSA - Final Physical Exam Const alert, oriented x3 and no apparent distress Exam Limitations: no limitations and altered mental status HEENT head/scalp atraumatic and moist oral mucous membranes Head and Scalp: normocephalic Eyes PERRL, EOMs intact bilaterally and conjunctivae normal Neck no lymphadenopathy and supple Resp normal respiratory effort, no retractions, no use of accessory muscles and clear to auscultation bilaterally Cardio regular rate, regular rhythm, S1 normal heart sound, S2 normal heart sound and no murmurs GI normal to inspection, nondistended, normoactive bowel sounds, soft to palpation, non-tender and non-distended Extremity normal to inspection and no clubbing, cyanosis or edema Peripheral Pulses: Yes pulses 2+ throughout Skin no rashes or lesions noted Skin Narrative: intact dressing over surgical site at right hip Neuro oriented x3, CN's II-XII intact bilaterally and moves all extremities Sensorium / Orientation: awake and alert Psych affect normal Assessment & Plan Assessment/Plan (1) S/P total right hip arthroplasty: (2) Syncope: PLAN: #SYncope * likely vasovagal, due to orthostatic hypotension. * She passed out while she was working with therapy yesterday. She was given IV fluids as orthostatics were positive. Orthostatics are negative this morning. * She does have a history of PE and is on therapeutic dose of Eliquis. She also says she has had 3 syncopal episodes since childhood and was worked up by cardiology who also felt her spells were due to vasovagal syncope. * Will benefit from follow-up with cardiology on outpatient basis. * PT OT on board. * #Orthostatic hypotension: Resolved #Acute on chronic anemia: * Baseline hemoglobin is around 11-12 and hemoglobin is 8.7 this morning. . * Transfuse if Hb is less than 7. * Likely due to acute blood loss from surgery #THrombocytopenia: platelets are 138 today. Was 155 yesterday afternoon. Baseline platelets are in the 200s. Will trend. #History of PE: On Xarelto #Hyperlipidemia: On statin Hypertension: Losartan was held yesterday. Will resume losartan today. Will cut down losartan from 100mg daily to 50mg. #CKD stage IIIb: Stable and at baseline; Cr is 1.37 today. #Depression and anxiety: On citalopram and amitriptyline. DVT prophylaxis: Not indicated as patient is on Eliquis Dispostion: ok for dc from hospialist standpoint Charges/Coding Visit Charges Inpatient E&M: 18828 Subs Hosp L2
--- NOTE | 2021-11-21 10:15 | PN.ORTHO_ITS ---
Subjective Subjective Patient lying in bed, awake. Patient states she feels much better today. Patient reports that she passed out yesterday during therapy. She reports that she was evaluated by the hospitalist yesterday and today. She feels she is doing much better. Patient reports she has had previous episodes similar to this in the past, and has had a complete cardiac work-up. Today the patient denies chest pain, shortness of breath, calf pain, nausea vomiting. Patient feels her pain has been very well managed. She has been up walking. Patient reports she is ready to discharge to [facility] for continued outpatient physical t herapy. Objective Data Objective Data Vital Signs: Vital Signs Temp Pulse Resp BP Pulse Ox 98.3 F 97 20 H 125/77 H 95 11/21/21 08:08 11/21/21 08:08 11/21/21 08:08 11/21/21 08:08 11/21/21 08:08 Oxygen Flow Rate (L/min) 2 Oxygen Delivery Method Room Air Weight: 100.3 kg Body Mass Index (BMI) 35.6 Intake & Output: Intake and Output for Last 24 Hours 11/19/21 11/20/21 11/21/21 23:59 23:59 23:59 Intake Total 3786 / 4286 4955.08 / 4955.08 700 / 700 Output Total 900 / 900 1550 / 1550 1100 / 1100 Balance 2886 / 3386 3405.08 / 3405.08 -400 / -400 Lab / Micro Data Result Diagrams: 11/21/21 05:40 11/21/21 05:40 Labs: Laboratory Results - last 24 hr 11/20/21 13:36: POC Glucose 104 11/20/21 16:45: WBC 5.3, RBC 2.92 L, Hgb 8.9 L, Hct 27.6 L, MCV 94.5, MCH 30.5, MCHC 32.2, RDW Std Deviation 41.3, RDW Coeff of Joseph 11.9, Plt Count 155, MPV 9.6, Immature Gran % (Auto) 0.200, Neut % (Auto) 77.3 H, Lymph % (Auto) 9.7 L, Hamilton % (Auto) 10.3 H, Eos % (Auto) 2.1, Baso % (Auto) 0.4, Absolute Neuts (auto) 4.1, Absolute Lymphs (auto) 0.52 L, Nucleated RBC % 0, Differential Comment SCANNED 11/20/21 22:39: Hgb 8.1 L, Hct 25.3 L 11/21/21 05:40: WBC 6.3, RBC 2.85 L, Hgb 8.7 L, Hct 27.0 L, MCV 94.7, MCH 30.5, MCHC 32.2, RDW Std Deviation 42.7, RDW Coeff of Joseph 12.3, Plt Count 138 L, MPV 9.2 11/21/21 05:40: Sodium 139, Potassium 4.6, Chloride 109 H, Carbon Dioxide 26.0, Anion Gap 4 L, BUN 21 H, Creatinine 1.37 H, Estim Creat Clear Calc 31.68, Est GFR (MDRD) Af Amer 48 L, Est GFR (MDRD) Non-Af 40 L, BUN/Creatinine Ratio 15.3, Glucose 108 H, Calcium 8.7 11/21/21 05:40: TSH 3.61 Micro: Microbiology 11/07/21 10:53 Swab (Method) Nasal Screen MRSA/MSSA - Final Physical Exam Narrative Exam I found patient lying comfortably in bed. She was alert oriented. She was in no respiratory distress speaking in full sentences. Patient's dressing was clean dry intact. Patient good flexion-extension of the right hip without pain or instability. She had no calf tenderness, no signs or symptoms of DVT. Neurovascular she was otherwise intact. Patient is afebrile. Patient's vitals were all reviewed and noted in medical record and are stable at this time. Patient's hemoglobin has improved from previous labs, which were all noted in the medical record. Const alert and oriented x3 Eyes PERRL Cardio regular rate and regular rhythm Neuro CN's II-XII intact bilaterally Psych mental status grossly normal and affect normal Assessment & Plan Assessment/Plan (1) S/P total right hip arthroplasty: PLAN: 1. Continue all pain medications as prescribed 2. Continue Xarelto as prescribed for postop DVT prophylaxis 3. Encourage incentive spirometry 4. Continue physical therapy weight-bear as tolerated with walker 5. Discharge to [facility] today. 6. Follow-up as scheduled with Reyes Hdez PA-C, see pink sheet for time and dates
--- NOTE | 2021-11-21 10:24 | DCINST_ITS ---
Discharge Instructions Diet Discharge Diet: No restrictions Activity Discharge Activity: May Not Drive, May Shower and Use Walker May shower in (days): 3 May resume sexual activity in: No Restrictions Ice area for (Minutes): 30 (every hour while awake.) Weight Bearing Status: Weight bearing as tolerated Keep extremity elevated above heart level: Operative Extremity Dressing / Incision Call your doctor if your incision/area has: Continuous Slow Oozing, Sudden Increased Bleeding, Increased Pain/ Swelling, Increased Redness and Foul Smelling Discharge Call your doctor if you observe: Fever of 101 or Higher, Coldness, Increased Pain, Numbness or Tingling, Change in Color, Shortness of breath, Calf discomfort and Uncontrolled pain Change Dressing in: leave in place till F/U Remove Dressing in: leave in place till F/U Follow Up Care Please Follow Up With: eRyes Hdez PA-C When: Please call [phone] to schedule a follow up appointment. Test Results: Test results from this visit will be discussed in further detail at your follow-up appointment, if applicable. Discharge Plan Admission Admit Date/Time: 11/19/21 15:47 Primary Reason for Your Visit: Right total hip arthroplasty Attending Provider: Yaneli Pantoja Primary Care Provider: Mahendra Brown Discharge Orders/Prescriptions Prescriptions: New tramadol 50 mg Tablet 50 mg PO Q6H PRN PRN (Reason: Pain) 7 Days Qty: 42 RF: 0 acetaminophen 500 mg Tablet 1,000 mg PO Q8H 7 Days Qty: 42 RF: 0 Xarelto 10 mg Tablet 10 mg PO DAILY@0600 Qty: 12 RF: 0 Continued cyanocobalamin (vitamin B-12) 1,000 mcg capsule 1,000 mcg PO DAILY RF: 0 calcium carbonate 600 mg calcium (1,500 mg) tablet 600 mg PO DAILY RF: 0 lorazepam 0.5 mg tablet 0.5 mg PO ONCE PRN (Reason: Anxiety) RF: 0 vitamin E 1,000 UNIT capsule 1,000 unit PO DAILY RF: 0 citalopram 40 MG tablet 40 mg PO DAILY RF: 0 simvastatin 10 MG tablet 10 mg PO QHS RF: 0 nortriptyline 50 MG capsule 50 mg PO QHS RF: 0 fish oil-dha-epa 1 EACH capsule 1 ea PO DAILY RF: 0 losartan 100 MG tablet 100 mg PO QHS Qty: 30 RF: 0 gabapentin 1 tab PO/SL TID RF: 0 No Action tramadol 50 MG tablet 100 mg PO Q6H PRN PRN (Reason: Pain) Qty: 90 RF: 0 Referrals / Follow Up: Jj Smith MD [STAFF PHYSICIAN] - 01/08/22 2:30 pm Mahendra Brown MD [Primary Care Provider] - Disposition Disposition (needs filled in before D/C Order can be placed): [facility]
[2021-11-21] MEDS: Losartan Potassium 50 MG Tablet PO (11:19)
--- NOTE | 2021-11-21 12:55 | CASEMGMT ---
Social Work Note Pt to discharge to [facility] today skilled. SW faxed discharge paperwork to [facility] including transfer to extended care facility, signed medication list, any scripts, COVID test/tool, and PAS/RR. Original in SNF folder and copy on pt's chart. SW completed PAS/RR in HENS. Original in SNF folder and copy on pt's chart. SW spoke with RN, pt to transport via cot. SW accessed trip assist and arranged transportation via cot for 2:30pm. Transportation form completed and placed on SNF folder and copy on pt's chart. SW updated RN on transportation time. SW placed a call to Kamille at [facility] and updated her on transportation time. SW in to speak with pt. SW updated pt on discharge and transportation time to [facility] today. Pt states understanding. Plan: [facility] skilled under PAS/RR today with Physician's transporting pt via cot at 2:30pm Niharika Barber NURSING TECHN, VE TEACHER
== END 2021-11-21 15:00 ==
LOC: SDC 16:28 → MS3 18:37
PROVIDERS: Anesthesiology; Internal Medicine; Physician Assistant; Admitting Provider Orthopaedic Surgery; PCP Family Medicine; Referring Provider Orthopaedic Surgery; Visit Provider Student in an Organized Health Care Education/Training Program
PROC: 0SR90JZ Replacement of Right Hip Joint with Synthetic Substitute, Open Approach (ICD-10-PCS; CPT 27130; principal; 2021-11-19 11:05)
DX: M16.11 Unilateral primary osteoarthritis, right hip (principal); D69.6 Thrombocytopenia, unspecified; N18.32 Chronic kidney disease, stage 3b; I95.1 Orthostatic hypotension; I12.9 Hypertensive chronic kidney disease with stage 1 through stage 4 chronic kidney disease, or unspecified chronic kidney disease; E78.5 Hyperlipidemia, unspecified; G47.33 Obstructive sleep apnea (adult) (pediatric); Z86.711 Personal history of pulmonary embolism; Z79.899 Other long term (current) drug therapy; F41.9 Anxiety disorder, unspecified; F32.A Depression, unspecified; E66.9 Obesity, unspecified; Z68.35 Body mass index [BMI] 35.0-35.9, adult
CPT/HCPCS: 27130; 36415; 71046; 73502; 80048; 80076; 82962; 83735; 84443; 85014; 85018; 85025; 85027; 85610; 85730; 87081; 87426; 88305; 88307; 88311; 93005; 96361; 96365; 96366; 96375; 97110; 97116; 97162; 97166; 97530; 97535; 99218; C1776; J7030; J7120; A4216; G0378; J2405

== ENCOUNTER 2022-01-24 07:01 | Outpatient (CLI) | payer MEDICARE, SELFPAY ==
--- NOTE | 2022-01-25 13:07 | STRESSREP_ITS ---
Stress Test Report Date: 01/25/2022 Procedure: Pharmacologic stress nuclear imaging study Indications: Chest pain Consent: Per the patient Procedure: The patient underwent pharmacologic (Regadenoson) evaluation with a peak heart rate of 106 beats per minute (74%predicted maximal heart rate) and a peak blood pressure of 142/68 mmHg. The baseline ECG demonstrated normal sinus rhythm. EKG during lexiscan infusion revealed no significant ischemic changes. EKG post infusion revealed no significant ischemic changes [There were no cardiac dysrhythmias pretest, during pharmacologic infusion, or recovery]. [There was no complaint of chest discomfort during pharmacologic infusion or recovery]. The examination was discontinued secondary to completion of protocol. Impression: 1. Lexiscan stress test test is negative for Lexiscan infusion induced EKG changes of ischemia. 2. Lexiscan stress test test is negative for Lexiscan infusion induced chest pain. 3. Results of the nuclear portion of the test is as below Myocardial perfusion imaging study: Technique: The patient was injected with 15 millicuries of technetium 99m Cardiolite and subsequently rest SPECT Cardiolite nuclear imaging was obtained in the horizontal long, vertical long, and short axis views. The patient underwent pharmacologic [Regadenoson 0.4mg] evaluation. Please see above for details. The patient was injected with 44.6 millicuries of technetium 99m Cardiolite and subsequently stress SPECT Cardiolite nuclear imaging was obtained in the horizontal long, vertical long, and short axis views. A gated Cardiolite study at peak stress was obtained. Interpretation: Rest and stress SPECT Cardiolite nuclear imaging status post realignment, normalization, and attenuation correction demonstrate normal myocardial radioisotope uptake. Gated images reveal no significant regional wall motion abnormalities. The reported LVEF is greater than 70%. Impression: 1. There is no evidence of significant ischemia or infarction. 2. Estimated ejection fraction is greater than 70%. This note was generated with [employer] software. It may contain incorrect words, spelling, and punctuation that were not noted in checking the note before signing.
== END 2022-01-24 23:59 | disposition home or self-care (01) ==
LOC: CVS 07:02
PROVIDERS: PCP Family Medicine; Referring Provider Specialist; Visit Provider Specialist
DX: R07.9 Chest pain, unspecified (principal)
CPT/HCPCS: 78452; 93017; A9500; A4216; J2785

== ENCOUNTER → 2022-06-12 | Outpatient (CLI) | payer MEDICARE, SELFPAY ==
[2022-06-12 10:20] LABS: Absolute Lymphocyte Count 1.51 X10^3/uL (0.83-4.51); Absolute Neutrophil Count 1.8 X10^3/uL (2.0-7.7); Basophil# 0.05 X10^3/uL; Basophil% 1.2 % (0-1); Eosinophil# 0.26 X10^3/uL; Eosinophils% 6.4 % (0-5); Hematocrit 35.9 % (37-47); Hemoglobin 11.4 g/dL (12.0-15.0); Lymphocyte # 1.51 X10^3/ul (0.83-4.51); Mean Corp Hgb Conc 31.8 g/dL (32-36); Mean Corpuscular Hgb 30.1 pg (27.0-32.0); Mean Corpuscular Volume 94.7 fL (81-99); Mean Platelet Vol. 9.3 fl (6.2-12.0); Monocyte# 0.42 X10^3/uL; Monocyte% 10.3 % (0-10); NRBC Flagged by Analyzer 0 % (0-5); Neutrophil # 1.82 X10^3/uL (2.7-7.7); Neutrophil % 44.6 % (47-70); Platelet Count 216 K/mm3 (150-450); RBC Distribution Width CV 12.8 % (11.6-14.6); RBC Distribution Width SD 43.9 fl (35.1-43.9); Red Blood Count 3.79 M/mm3 (4.2-5.4); White Blood Count 4.1 K/mm3 (4.4-11.0)
[2022-06-12 10:46] LABS: ALB/GLOB Ratio 0.9 RATIO (0.9-2.4); AST(SGOT) 19 U/L (15-37); Alanine Aminotransfer ALT/SGPT 24 U/L (13-56); Albumin, Serum 3.5 g/dL (3.2-5.0); Alkaline Phosphatase 100 U/L (45-117); Anion Gap 5 (5-15); BUN 16 mg/dL (7-18); BUN/Creat Ratio 12.5 RATIO (10-20); Calcium,Total 8.9 mg/dL (8.5-10.1); Chloride 106 mmol/L (98-107); Cholesterol 190 mg/dL (200); Creatinine, Serum 1.28 mg/dL (0.55-1.02); EST Glomerular Filtration Rate 43 mL/min (>60); Est Glom Filt Rate - Afr Amer 52 mL/min (>60); Globulin 3.9 g/dL (2.2-4.2); Glucose 87 mg/dL (74-106); High Density Lipoprotein 69 mg/dL; Potassium 4.1 mmol/L (3.5-5.1); Protein, Total 7.4 g/dL (6.4-8.2); Sodium Level 140 mmol/L (136-145); Thyroid Stim Hormone (TSH) 1.95 uIU/mL (0.358-3.74); Triglycerides 81 mg/dL; Very Low Density Lipoprotein 16 mg/dL (5-40)
== END | disposition home or self-care (01) ==
LOC: MTLAB 08:21
PROVIDERS: PCP Family Medicine; Referring Provider Family Medicine; Visit Provider Family Medicine
DX: I12.9 Hypertensive chronic kidney disease with stage 1 through stage 4 chronic kidney disease, or unspecified chronic kidney disease (principal); N18.30 Chronic kidney disease, stage 3 unspecified; E78.5 Hyperlipidemia, unspecified
CPT/HCPCS: 36415; 80053; 80061; 84443; 85025

== ENCOUNTER → 2022-08-22 | Outpatient (CLI) | payer MEDICARE, SELFPAY ==
--- NOTE | 2022-08-22 10:45 | RAD_ITS ---
EXAM: XR ABDOMEN, 1 VIEW CLINICAL INDICATION: eval for constipation TECHNIQUE: Frontal supine view of the abdomen/pelvis. This report was created using [employer] report generation technology. COMPARISON: None. FINDINGS: LOWER THORAX: No acute pathology. GASTROINTESTINAL TRACT: Moderate stool burden within the large bowel and rectum. ORGANS: No organomegaly. BONES/JOINTS: Postoperative and degenerative changes of the lumbar spine. Bilateral hip prostheses in place. SOFT TISSUES: No pathological calcification. RAD/Abdomen Single View IMPRESSION: Constipation. Electronically Signed: Randal Cristina MD at 11:47 EDT ,
--- NOTE | 2022-08-22 10:45 | RAD_ITS ---
EXAM: XR LUMBOSACRAL SPINE, 2 OR 3 VIEWS CLINICAL INDICATION: new fecal incontinence TECHNIQUE: Frontal and lateral views of the lumbar spine and sacrum. This report was created using [employer] report [employer] technology. COMPARISON: XR Lumbosacral Spine dated 03/16/2019 FINDINGS: VERTEBRAE: Interpedicular screws again noted at the L2, L3 and L4 levels. Stable anterior listhesis of L2 on L3 and L3 on L4. Preserved vertebral body height. No fracture. No spondylolisthesis. Preservation of the normal lumbar lordosis. No significant facet arthropathy. DISC SPACES: Significant multilevel disc space narrowing is again seen with some progression in the disc changes at L1-2. RAD/Lumbar Spine 2 or 3 Views IMPRESSION: Progressive disc degeneration at the L1-2 level. No other interval change. Electronically Signed: Randal Cristina MD at 11:44 EDT ,
== END | disposition home or self-care (01) ==
LOC: RAD 10:22
PROVIDERS: PCP Family Medicine; Referring Provider Nurse Practitioner Adult Health; Visit Provider Nurse Practitioner Adult Health
DX: R15.9 Full incontinence of feces (principal)
CPT/HCPCS: 72100; 74018

== ENCOUNTER 2022-10-15 10:51 | Day surgery (SDC) | payer MEDICARE, SELFPAY ==
[2022-10-15] VITALS (7 sets, daily range): BP systolic 121–162; BP diastolic 69–91; PULSE 81–94; RESP 16; TEMP 36.9–37.4; O2SAT 97–100; BMI 34.4
--- NOTE | 2022-10-15 11:10 | PCM.HP.BLA ---
History and Physical Date of Admission: 10/15/22 [facility] Chief Complaint: Fecal incontinence Details: MOISÉS JIMENEZ, is a 77 F who presents to the office today for fecal incontinence. Fairly sudden onset several months ago. Passes thick, smeary stool when she sits to urinate. Stool passes when she passes gas. Having smearing in her underwear. No longer has urge to have BM. Colonoscopy >25 yrs ago. No abd pain or cramps. Tried adding fiber, metamucil, w/o relief. Tried Pepto bismol w/o relief. No watery or loose stools. Consistency is more like pudding. Doesn't feel like bowels empty.? No melena or hematochezia. No change in bladder; has occas mild urge incontinence, no stress urinary incontinence. Not on omeprazole (it is on her medication list). Occas heartburn.? Denies nausea, vomiting, acid reflux, early satiety. On gabapentin for nerve pain in her legs.? She has chronic back pain.? History of back surgery in 2014.? She has had bilateral hip replacements, right hip was done in October 2021.? She notes her father had colitis, but that resolved when he retired. ROS Const Constitutional: No fatigue ENT ENT: No difficulty swallowing Cardio Cardiology: Positive for leg pain with exertion Gastro GI: Positive for bloating, change in bowel habits, diarrhea and excessive flatus; No abdominal pain, belching, change in stool character, coffee ground emesis, constipation, cramping, heartburn, difficulty swallowing, feeling full early, incontinent of stools, Vomiting blood/hematemesis, Blood in stool, loose stools, Black,tarry stools, nausea/dyspepsia, pain with swallowing, vomiting or other Musc Musculoskeletal: Positive for abnormal gait, joint pain, back pain, muscle cramps, muscle weakness, stiffness and leg pain with exertion Skin Skin: No yellowing of the eye or itchy eyes Neuro Neurology: Positive for abnormal gait Psych Psychiatric: Positive for anxiety and No depression Endo Endocrine: No fatigue Aller/Imm Allergy/Immunologic: No itchy eyes Henrique/Lymp Hematologic/Lymphatic: No easy bleeding or easy bruising Exam Const General: cooperative and comfortable Nutritional Appearance: obese Orientation: alert, awake and oriented x3 Eyes Sclera: sclerae normal Resp Effort & Inspection: normal respiratory effort GI Inspection: obesity Palpation: soft, no hepatosplenomegaly, no masses and nontender Musc Other: Walks with a cane Quality Reporting Tobacco Screening ([facility] 138) Smoking Status: Never smoker Assessment and Plan Assessment and Plan (1) Fecal incontinence: ?Status:?Acute ?Plan: 77 yr old female with new onset fecal incontinence, lack of sense of needing to have BM.? Differential diagnosis includes neuropathy, pelvic floor dysfunction, anal stenosis vs anal laxity, malignancy, microscopic colitis. kub today to eval for constipation, and L-S spine xray today ?impingement, we will call her with results consider 50-50 cholestyramine and Metamucil at HS to bulk up stool CT abd pel eval for stricture, air-fluid levels, mass, eval size of rectum colonoscopy will be scheduled, follow-up 2 weeks after in the office ? ? ? Orders: Orders Abdomen Single View Today R15.9 - Full incontinence of feces ? Abdomen/Pelvis WITH Contrast Today R15.9 - Full incontinence of feces ? Lumbar Spine 2 or 3 Views Today R15.9 - Full incontinence of feces I have examined the patient and the H&P has been reviewed. There are no clinical changes since date of exam.
[2022-10-15] MEDS: Lactated Ringers 1,000 ML 15 ML IV (12:00)
--- NOTE | 2022-10-15 13:20 | COLBX_PTH ---
PATIENT: MOISÉS JIMENEZ LOC: [facility] U#:[id number] AGE/SX: 77/F ROOM: RE10/15/[address]: Dr. Cesar Greer DO : 1945 BED: DIS: 10/15/2022 SPEC #: [id number] RECD: 10/15/22 14:12 STATUS: SEUN REMilton #: [id number] YESENIA: 10/15/22 13:[address]: Cesar Greer DEPT: SURGICAL PATHOLOGY RECD BY: Anette Suggs ENTERED: 10/16/22 09:02 SP TYPE: COLON BX HEATHER DR: Dr. Mahendra Brown MD Tissues: A - Cecum, NOS B - COLON BIOPSY C - COLON BIOPSY D - Sigmoid colon biopsy Procedures: Surgery Specimen Level IV HEADER OPERATION: Colonoscopy with biopsy, polypectomy and cultures [place] [place] PRE[place]OP DIAGNOSIS: Fecal incontinence TISSUE SUBMITTED: A ? Cecum biopsy, B ? Random colon biopsy, C ? Splenic flexure polyp, D ? Sigmoid and rectum biopsy MICROSCOPIC DIAGNOSIS A. Cecum, biopsy: Fragments of colonic mucosa with rare pigment laden macrophages suggestive of melanosis coli. B. Colon, random biopsy: Fragments of colonic mucosa with rare pigment laden macrophages suggestive of melanosis coli. Hyperplastic polyp. C. Splenic flexure polyp, biopsy: Hyperplastic polyp. D. Sigmoid colon and rectum, biopsy: Fragments of colonic mucosa with pigment laden macrophages consistent with melanosis coli. See comment. SJ:dory 10/17/2022 COMMENT D. A few muciphages are also noted. MICROSCOPIC DESCRIPTION Slides are reviewed. GROSS DESCRIPTION A - Received in fixative is one container labeled with the patient's name and designated biopsy cecum. The specimen consists of multiple irregular fragments of light mccoy soft tissue that in aggregate measure 1 x 0.3 x 0.1 cm. The specimen is totally submitted in one cassette. B - Received in fixative is one container labeled with the patient's name and designated biopsy random colon. The specimen consists of multiple irregular fragments of light mccoy soft tissue that in aggregate measure 1 x 1 x 0.1 cm. The specimen is totally submitted in one cassette. C - Received in fixative is one container labeled with the patient's name and designated hepatic flexure polyp. The specimen consists of multiple irregular fragments of light mccoy soft tissue that in aggregate measure 0.8 x 0.5 x 0.1 cm. The specimen is totally submitted in one cassette. D - Received in fixative is one container labeled with the patient's name and designated sigmoid colon and rectum biopsy. The specimen consists of multiple irregular fragments of light mccoy soft tissue that in aggregate measure 1.5 x 0.5 x 0.1 cm. The specimen is totally submitted in one cassette. / SJ:rg 10/16/2022 TC:1 CPT: 60669 x4
--- NOTE | 2022-10-15 14:09 | OP.CCLET_ITS ---
10/15/2022 Mahendra Brown Re : Colonoscopy procedure for Talisha Yenicole Dear Kevin This procedure was performed on Saturday, October 15, 2022. My impressions and recommendations are as follows: Impressions : - Congested mucosa in the rectum, in the recto-sigmoid colon, in the sigmoid colon, in the descending colon, at the splenic flexure, in the ascending colon and in the cecum. Biopsied. - One 5 mm polyp at the splenic flexure, removed with a hot snare. Resected and retrieved. Recommendations : - Repeat colonoscopy in 5 years for surveillance based on pathology results. - Continue present medications. My findings are described in the full procedure note, which is enclosed. If I can be of further assistance, please feel free to contact me at . Sincerely, Cesar Greer, 10/15/2022 2:09:19 PM This report has been signed electronically.
--- NOTE | 2022-10-15 14:09 | OP.COLON_ITS ---
Patient Name: Talisha Krishnamurthy Procedure Date: 10/15/2022 1:21 PM Date of : 1945 Age: 77 Procedure: Colonoscopy Indications: Clinically significant diarrhea of unexplained origin, Diarrhea (presumed secondary to inflammatory bowel disease) Providers: Cesar Greer DO Referring MD: Mahendra Brown Medicines: Monitored Anesthesia Care Patient Profile: This is a 77 year old female. Refer to note in patient chart for documentation of history and physical. Last Colonoscopy: 5 years ago. Complications: No immediate complications. Procedure: Pre-Anesthesia Assessment: - Prior to the procedure, a History and Physical was performed, and patient medications and allergies were reviewed. The patient is competent. The risks and benefits of the procedure and the sedation options and risks were discussed with the patient. All questions were answered and informed consent was obtained. Patient identification and proposed procedure were verified by the physician in the pre-procedure area. Mental Status Examination: alert and oriented. Airway Examination: normal oropharyngeal airway and neck mobility. Respiratory Examination: clear to auscultation. CV Examination: normal. Prophylactic Antibiotics: The patient does not require prophylactic antibiotics. Prior Anticoagulants: The patient has taken no previous anticoagulant or antiplatelet agents. ASA Grade Assessment: II - A patient with mild systemic disease. After reviewing the risks and benefits, the patient was deemed in satisfactory condition to undergo the procedure. The anesthesia plan was to use moderate sedation / analgesia (conscious sedation). Immediately prior to administration of medications, the patient was re-assessed for adequacy to receive sedatives. The heart rate, respiratory rate, oxygen saturations, blood pressure, adequacy of pulmonary ventilation, and response to care were monitored throughout the procedure. The physical status of the patient was re-assessed after the procedure. After I obtained informed consent, the scope was passed under direct vision. Throughout the procedure, the patient's blood pressure, pulse, and oxygen saturations were monitored continuously. The adult colonoscope was introduced through the anus and advanced to the cecum, identified by appendiceal orifice and ileocecal valve. The colonoscopy was performed without difficulty. The patient tolerated the procedure well. The quality of the bowel preparation was good. Scope In: 1:31:56 PM Scope Withdrawal Time 0 hours 15 minutes 14 seconds Scope Out: 2:03:05 PM Total Procedure Duration Time 0 hours 31 minutes 9 seconds Findings: The perianal and digital rectal examinations were normal. An area of mildly congested mucosa was found in the rectum, in the recto-sigmoid colon, in the sigmoid colon, in the descending colon, at the splenic flexure, in the ascending colon and in the cecum. Biopsies were taken with a cold forceps for histology. Verification of patient identification for the specimen was done. Estimated blood loss was minimal. A 5 mm polyp was found in the splenic flexure. The polyp was sessile. The polyp was removed with a hot snare. Resection and retrieval were complete. Verification of patient identification for the specimen was done. Estimated blood loss was minimal. A few small-mouthed diverticula were found in the recto-sigmoid colon and sigmoid colon. Impression: - Congested mucosa in the rectum, in the recto-sigmoid colon, in the sigmoid colon, in the descending colon, at the splenic flexure, in the ascending colon and in the cecum. Biopsied. - One 5 mm polyp at the splenic flexure, removed with a hot snare. Resected and retrieved. Recommendation: - Repeat colonoscopy in 5 years for surveillance based on pathology results. - Continue present medications. Procedure Code(s): --- Professional --- 74435, Colonoscopy, flexible; with removal of tumor(s), polyp(s), or other lesion(s) by snare technique 14181, 59, Colonoscopy, flexible; with biopsy, single or multiple CPT copyright 2017 [employer]. All rights reserved. The codes documented in this report are preliminary and upon senior marketing specialist review may be revised to meet current compliance requirements. Cesar Greer DO 10/15/2022 2:09:19 PM This report has been signed electronically. Number of Addenda: 0 Note Initiated On: 10/15/2022 1:21 PM
[2022-10-20 09:41] LABS: Calprotectin, Stool <16 ug/g (0-120)
[2022-10-23 16:58] LABS: Pancreatic Elastase, Fecal 125 (>200)
== END 2022-10-15 15:12 | disposition home or self-care (01) ==
LOC: EN 10:51 → AC 10:55
PROVIDERS: PCP Family Medicine; Referring Provider Family Medicine; Visit Provider Internal Medicine Gastroenterology
PROC: 0DJD8ZZ Inspection of Lower Intestinal Tract, Via Natural or Artificial Opening Endoscopic (ICD-10-PCS; CPT 45378; principal; 2022-10-15 13:15)
DX: K63.89 Other specified diseases of intestine (principal); N18.32 Chronic kidney disease, stage 3b; K57.30 Diverticulosis of large intestine without perforation or abscess without bleeding; I12.9 Hypertensive chronic kidney disease with stage 1 through stage 4 chronic kidney disease, or unspecified chronic kidney disease; K63.5 Polyp of colon; G89.29 Other chronic pain; M54.9 Dorsalgia, unspecified; E66.9 Obesity, unspecified; E78.5 Hyperlipidemia, unspecified; F41.9 Anxiety disorder, unspecified; F32.A Depression, unspecified; R19.7 Diarrhea, unspecified; Z79.899 Other long term (current) drug therapy; Z86.711 Personal history of pulmonary embolism
CPT/HCPCS: 45380; 45385; 82653; 83993; 87177; 87209; 87329; 87493; 87506; 88305; J7120; J2405

== ENCOUNTER → 2023-06-11 | Outpatient (CLI) | payer MEDICARE, SELFPAY ==
[2023-06-11 15:27] LABS: Absolute Lymphocyte Count 2.17 X10^3/uL (0.83-4.51); Absolute Neutrophil Count 2.8 X10^3/uL (2.0-7.7); Basophil# 0.07 X10^3/uL; Basophil% 1.2 % (0-1); Eosinophil# 0.38 X10^3/uL; Eosinophils% 6.3 % (0-5); Hematocrit 36.1 % (37-47); Hemoglobin 11.5 g/dL (12.0-15.0); Lymphocyte # 2.17 X10^3/ul (0.83-4.51); Lymphocyte % 35.8 % (19-41); Mean Corp Hgb Conc 31.9 g/dL (32-36); Mean Corpuscular Volume 97.3 fL (81-99); Mean Platelet Vol. 9.8 fl (6.2-12.0); Monocyte% 9.9 % (0-10); NRBC Flagged by Analyzer 0 % (0-5); Neutrophil # 2.83 X10^3/uL (2.7-7.7); Neutrophil % 46.6 % (47-70); Platelet Count 201 K/mm3 (150-450); RBC Distribution Width CV 12.1 % (11.6-14.6); RBC Distribution Width SD 43.4 fl (35.1-43.9); Red Blood Count 3.71 M/mm3 (4.2-5.4); White Blood Count 6.1 K/mm3 (4.4-11.0)
[2023-06-11 15:38] LABS: ALB/GLOB Ratio 1.1 RATIO (0.9-2.4); AST(SGOT) 20 U/L (15-37); Alanine Aminotransfer ALT/SGPT 20 U/L (13-56); Albumin, Serum 3.8 g/dL (3.2-5.0); Alkaline Phosphatase 90 U/L (45-117); Anion Gap 4 (5-15); BUN 22 mg/dL (7-18); BUN/Creat Ratio 14.2 RATIO (10-20); Calcium,Total 8.9 mg/dL (8.5-10.1); Chloride 105 mmol/L (98-107); Cholesterol 177 mg/dL (200); Creatinine, Serum 1.55 mg/dL (0.55-1.02); EST Glomerular Filtration Rate 34 mL/min (>60); Est Glom Filt Rate - Afr Amer 41 mL/min (>60); Globulin 3.5 g/dL (2.2-4.2); Glucose 102 mg/dL (74-106); High Density Lipoprotein 62 mg/dL; Potassium 4.4 mmol/L (3.5-5.1); Protein, Total 7.3 g/dL (6.4-8.2); Sodium Level 138 mmol/L (136-145); Triglycerides 153 mg/dL; Very Low Density Lipoprotein 31 mg/dL (5-40)
== END | disposition home or self-care (01) ==
LOC: BIMLAB 14:06
PROVIDERS: PCP Internal Medicine; Referring Provider Internal Medicine; Visit Provider Internal Medicine
DX: S09.90XA Unspecified injury of head, initial encounter (principal); I10 Essential (primary) hypertension
CPT/HCPCS: 36415; 80053; 80061; 85025

== ENCOUNTER 2023-06-13 09:19 | Emergency (ER) | payer MEDICARE, SELFPAY ==
[2023-06-13 09:21] VITALS: BP 205/156; PULSE 117; RESP 12; TEMP 36.1; O2SAT 97; BMI 34.2
--- NOTE | 2023-06-13 09:31 | CT_ITS ---
STUDY: CT BRAIN WITHOUT CONTRAST REASON FOR EXAM: Female, 77 years old. Worsening headaches following a recent fall. RADIATION DOSAGE (If Supplied By Facility): CTDIvol = ( 44.99 ) mGy, DLP = ( 796.11 ) mGycm TECHNIQUE: Transaxial CT imaging of the brain was performed without administration of intravenous contrast material. Individualized dose optimization techniques were used for this CT. COMPARISON: Comparison is made with prior study dated September 20, 2019. FINDINGS: Normal soft tissue structures. Normal calvarium. There is mild cerebral atrophy with widening of the extra-axial spaces and ventricular dilatation. There are areas of decreased attenuation within the white matter tracts of the supratentorial brain, consistent with microvascular disease changes. Normal basal ganglia and thalami. Normal brainstem. Normal cerebellum. There is no intracranial hemorrhage. There are no findings of an acute ischemic infarction. Atherosclerotic calcification of the cavernous portions of the internal carotid arteries bilaterally. Normal visualized paranasal sinuses. CT/Brain/Head without Contrast IMPRESSION: Chronic involutional changes of the brain. Electronically Signed: Nhan Anderson MD at 10:08 EDT ,
--- NOTE | 2023-06-13 09:31 | EX.ED.VIS.HA ---
HPI History of Present Illness Chief Complaint: Headache Detail of Chief Complaint: Post head injury 2 weeks ago. Informant: patient Onset/Context/Timing Onset: Weeks Context: Gradual Timing: Intermittent Current Severity: Mild Maximum Severity: Moderate Associated Symptoms/Injury Associated Symptoms: Negative for Fever, Nausea, Vomiting or Sore Throat Injury - RAY: Positive for Direct Trauma and Fall; Negative for Assault Narrative Narrative: 77-year-old female loss of balance fell backwards about 2 weeks ago striking her head on cement. Since that time she has had intermittent headaches in different areas of her head. Denies any LOC. No nausea vomiting. She is not on any blood thinners not even aspirin. Denies any trouble moving her arms or legs. Said that she typically does not get headaches except since this fall. Prior similar symptoms: No Recent Illness/Hospitalization: No PFSH PFSH Medical History Ambulates with cane Anemia Anxiety and depression Blackout Bradycardia Chronic back pain Chronic renal failure, stage 3 (moderate) Constipation CPAP (continuous positive airway pressure) dependence Dehydration Depression Easy bruising Elevated TSH Essential hypertension Exertional dyspnea Fecal incontinence Full incontinence of feces Heart murmur Hoarseness Hyperlipidemia Junctional escape rhythm Near syncope Non-smoker Obesity (BMI 30-39.9) Orthostatic hypotension Osteoarthritis Pulmonary emboli Radicular pain of right lower extremity Shortness of breath on exertion Sleep apnea Stage 3b chronic kidney disease (CKD) Unresponsive episode Wears dentures Home Medications lorazepam 0.5 mg tablet (Ativan) 0.5 mg PO ONCE PRN Anxiety 06/13/20 [History Last Taken Unknown] fluticasone propionate 50 mcg/actuation nasal spray,suspension (Flonase Allergy Relief) 1 spray intranasal QHS #16 grams 01/06/23 [Rx Last Taken Unknown] gabapentin 300 mg capsule 300 mg PO TID #90 caps 05/23/23 [Rx Last Taken Unknown] citalopram 40 mg tablet 40 mg PO DAILY #90 tabs 06/11/23 [Rx Last Taken Unknown] losartan 100 mg tablet 100 mg PO QHS #90 tabs 06/11/23 [Rx Last Taken Unknown] meloxicam 15 mg tablet 15 mg PO DAILY #90 tabs 06/11/23 [Rx Last Taken Unknown] nortriptyline 50 mg capsule 50 mg PO QHS #90 caps 06/11/23 [Rx Last Taken Unknown] simvastatin 10 mg tablet 10 mg PO QHS #90 tabs 06/11/23 [Rx Last Taken Unknown] Allergy/AdvReac Type Severity Reaction Status Date / Time No Known Allergies Allergy Verified 06/13/23 09:20 Family History Mother Hypertension CVA (cerebral vascular accident) Father Hypertension Heart disease Brother Heart murmur Surgical History History of back surgery (~2014) History of colonoscopy History of left hip replacement (~2016) History of right hip replacement (~10/2021) Hx of total hip arthroplasty Social History household members: spouse current occupational status: retired current occupation: worked multiple jobs Smoking Status: Never smoker Electronic Cigarette Use: not used alcohol intake: never substance use type: does not use caffeine: Yes Type: carbonated beverages Number of servings: 2 what type of physical activity do you participate in: none do you feel safe at home: Yes ROS ROS ED ROS Narrative Headache. No nausea or vomiting. No fever. Review of Systems ROS Unobtainable: Denies due to encephalopathy Constitutional Constitutional ED: Denies chills or fever(s) Eyes Eyes: Denies blurry vision ENT ENT ED: Denies ear pain Cardiovascular Cardiovascular: Denies chest pain Respiratory/Chest Respiratory/Chest: Denies cough or dyspnea Gastrointestinal Gastrointestinal: Denies abdominal pain Genitourinary Genitourinary ED: Denies dysuria or hematuria Musculoskeletal Musculoskeletal: Denies arthralgias Integumentary Denies abscess Neurologic Neurologic: Reports headache(s) Psychiatric Psychiatric: Denies anxiety Endocrine Endocrinology: Denies polydipsia Hematologic/Lymphatic Hematologic/Lymphatic: Denies easy bleeding, easy bruising or lymphadenopathy Allergic/Immunologic Allergic/Immunologic ED: Denies mouth swelling, tongue swelling or urticaria EXAM Physical Exam Narrative Exam Narrative: Well-appearing 77-year-old female. Vital signs are stable except her initial blood pressure was elevated 205/156. She does not look septic toxic or in any distress. HEENT exam unremarkable. Scalp nontender. No hematoma. No laceration. Dry reactive light. No facial droop. Normal speech. Neck nontender. No meningismus. Lungs clear to auscultation. Heart regular rhythm no murmur. Rate about 100. Chest wall and ribs nontender. Back nontender. Abdomen soft nontender. Pelvic girdle intact. Moving all 4 extremities. 5-5 helpdesk administrator strength. Dorsi plantarflexion intact. Neurologic exam normal. NIH 0. GCS 15. Fingertip to nose within normal limits. Awake and alert. Answering questions. Following commands. Const Vital Signs: 06/13/23 09:21 Temperature 97 F L Temperature Source Temporal Pulse Rate 117 H Respiratory Rate 12 Blood Pressure 205/156 H Blood Pressure Mean 172 Pulse Ox 97 Oxygen Delivery Method Room Air Positive well nourished and well developed; Negative for cachectic, contractures or unkempt General Appearance ED: well developed and NAD; Negative for unkempt, cachectic, contractures, cyanotic or diaphoretic Nutritional Appearance: Negative for cachectic HEENT Reports normocephalic and moist mucous membranes; Denies dry mucous membranes Mouth ED: No dry mucous membranes Mouth: No dry mucous membranes Eyes PERRL and EOMs intact bilaterally General Eye ED: Negative for pale conjunctiva or scleral icterus Neck no lymphadenopathy, supple, no meningeal signs and no JVD General: Negative for tenderness Resp normal respiratory effort and clear to auscultation bilaterally Effort and Inspection: Negative for retractions Auscultation: Negative for rales, rhonchi or wheezes Cardio regular rate, regular rhythm, S1 normal heart sound, S2 normal heart sound and no murmurs Rate: Negative for bradycardia or tachycardic Rhythm: Negative for abnormal rhythm GI non-tender and non-distended Auscultation: normoactive bowel sounds Palpation: soft; Negative for firm or tender Back/Spine no CVA tenderness General Back: Negative for CVA tenderness Cervical Spine: Negative for cervical spine tenderness Thoracic Spine / Upper Back: Negative for thoracic spinal tenderness Lumbar Spine / Lower Back: Negative for lumbar spinal tenderness Extremity normal to inspection and full ROM General Extremety ED: Negative for edema or tenderness General Extremity: Negative for edema Neuro oriented x3 and CN's II-XII intact bilaterally [place] Coma Scale: document GCS findings Spontaneous Obeys Commands Oriented 15 Sensorium / Orientation: awake, alert, oriented to person, oriented to place and oriented to time; Negative for orientation impaired, lethargic or stuporous Coordination / Balance: [id number] test normal Speech: speech normal Motor Exam: strength 5/5 throughout Psych mental status grossly normal Appearance: Negative for unkempt Attitude: No agitated Mood & Affect: Negative for depressed, anxious or tearful Skin General Skin Exam: elasticity normal Lesions: no lesions Rashes: no rashes Trauma: Negative for abrasion MDM MDM MDM Narrative Medical decision making narrative: 77-year-old female but does not have a history of frequent headaches. Fell and has a head injury from 2 weeks ago and has been having headaches since that time. Exam normal. CAT scan to be obtained. We will also reassess her blood pressure which is significantly elevated on initial presentation. Repeat exam patient doing well at 10:15 AM. Neurologic exam remains normal. We discussed her CAT scan results. She will be treated as a postconcussive headache. History & Record Review Discussion w/independent historian: Patient Additional record(s) reviewed:: Prior inpatient record, Prior outpatient record, Prior ED visit and Prior labs Radiography Diagnostic Testing: Clinical Impression(s) from Imaging Studies Brain CT 06/13/23 09:31 IMPRESSION: Chronic involutional changes of the brain. Electronically Signed: Nhan Anderson MD at 10:08 EDT , CAT scan of the brain without contrast shows no acute abnormality. Read by the radiologist. Reviewed by me. Discharge Plan Triage Chief Complaint: Headache ED Provider: Jroge Santos Dx/Rx/DC Orders Clinical Impression: Concussion Instructions: ED Concussion Prescriptions: No Action lorazepam [Ativan] 0.5 mg tablet 0.5 mg PO ONCE PRN (Reason: Anxiety) citalopram 40 mg tablet 40 mg PO DAILY Qty: 90 0RF losartan 100 mg tablet 100 mg PO QHS Qty: 90 0RF meloxicam 15 mg tablet 15 mg PO DAILY Qty: 90 0RF nortriptyline 50 mg capsule 50 mg PO QHS Qty: 90 0RF simvastatin 10 mg tablet 10 mg PO QHS Qty: 90 0RF fluticasone propionate [Flonase Allergy Relief] 50 mcg/actuation spray,suspension 1 spray intranasal QHS Qty: 16 2RF Rx Instructions: administer into each nostril gabapentin 300 mg capsule 300 mg PO TID Qty: 90 2RF Primary Care Provider: Lisa Thomas Referrals: Lisa Thomas MD [Primary Care Provider] - 1 Week if not improving Activity Restrictions/Additional Instructions: Tylenol and/or Motrin for pain. Follow-up with your primary care provider if not improving. The CAT scan was unremarkable. There is no signs of intracranial bleed. Disposition Disposition: Home, Self Care
[2023-06-13 10:19] VITALS: BP 185/76; PULSE 76; RESP 14; TEMP 36.4; O2SAT 99
--- NOTE | 2023-06-13 10:53 | CM.ED ---
Social Work Referral Source: ANTHONY Greenwood Referral Reason: resources Patient's ANTHONY Greenwood informed SW the patient could benefit from resources for her to have more support at home so the patient is able to focus on her personal health. SW to follow up. SW met with patient and introduced self and role as [facility] SW. Patient seated on hospital bed and agreeable to speak with SW. SW inquired about needs at home for patient and patient's . Patient reports her has been to several SNFs recently and needs further assistance at home, explaining patient's doesn't listen to the patient. Patient reports getting her a rollator he will not use. Patient explained she wants to be able to focus on her health but she states that it is difficult when she has to help her . SW provided emotional support and reviewed community resources. SW provided [facility] resource list, information for [facility], as well as skilled and private home health care lists. SW encouraged patient to discuss home health care options with her 's PCP so if they feel it is needed it could be covered by insurance. SW encouraged patient to bring her into the ED if she starts to have safety concerns or talk with the PCP about SNF options. Patient was receptive towards resources and voices no other need. Lyubov Hannah LOCOMOTIVE PIPE FITTER, CORY
== END 2023-06-13 11:06 | disposition home or self-care (01) ==
PROVIDERS: Emergency Provider Emergency Medicine; PCP Internal Medicine; Visit Provider Emergency Medicine
DX: S06.0X0A Concussion without loss of consciousness, initial encounter (principal); N18.32 Chronic kidney disease, stage 3b; I12.9 Hypertensive chronic kidney disease with stage 1 through stage 4 chronic kidney disease, or unspecified chronic kidney disease; E78.5 Hyperlipidemia, unspecified; F41.8 Other specified anxiety disorders; Z79.899 Other long term (current) drug therapy; M19.90 Unspecified osteoarthritis, unspecified site; Z96.643 Presence of artificial hip joint, bilateral; W01.198A Fall on same level from slipping, tripping and stumbling with subsequent striking against other object, initial encounter
CPT/HCPCS: 70450; 99282

== ENCOUNTER → 2023-06-24 | Outpatient (CLI) | payer MEDICARE, SELFPAY ==
--- NOTE | 2023-06-24 18:13 | CT_ITS ---
INDICATION: fall, hit head, headache EXAMINATION: CT CERVICAL SPINE - CT Spine Cervical W/O Contrast Injection TECHNIQUE: Helically acquired images were obtained of the cervical spine with sagittal and coronal reconstructed images. Individualized dose optimization techniques were used for this CT. IV contrast dosage and agent: None. COMPARISON: None. FINDINGS: VERTEBRAE: No fracture. Grade 1 anterior spondylolisthesis of C4 on C5 is likely secondary to facet arthrosis. The craniocervical junction is unremarkable. Moderate to severe degenerative changes, worse at C5-C6 and C6-C7. NECK SOFT TISSUES: The prevertebral soft tissues are unremarkable. No pathologically enlarged lymph nodes. LUNG APICES: Clear. CT/Spine Cervical without Contras IMPRESSION: No fracture. Moderate to severe degenerative changes. Electronically Signed: Manolo Auguste DO at 18:36 EDT ,
== END | disposition home or self-care (01) ==
PROVIDERS: PCP Internal Medicine; Visit Provider Internal Medicine
DX: S09.90XA Unspecified injury of head, initial encounter (principal)
CPT/HCPCS: 72125

== ENCOUNTER 2024-11-04 12:49 | Emergency (ER) | payer MEDICARE, SELFPAY ==
[2024-11-04 12:50] VITALS: BP 176/84; PULSE 102; RESP 16; TEMP 36.6; O2SAT 100; BMI 35.1
--- NOTE | 2024-11-04 13:07 | RAD_ITS ---
EXAM: XR CHEST, 1 VIEW CLINICAL INDICATION: weakness TECHNIQUE: Frontal view of the chest. COMPARISON: November 07, 2021 FINDINGS: LUNGS AND PLEURAL SPACES: Unremarkable. No consolidation or edema. No pneumothorax. No effusion. HEART: Unremarkable. Cardiac silhouette not enlarged. MEDIASTINUM: Central airways and mediastinal contour are unremarkable. BONES/JOINTS: Degenerative changes of the spine. Lumbar spine fusion hardware incompletely imaged. No acute fracture. SOFT TISSUES: Unremarkable. VASCULATURE: Atherosclerotic calcifications of the nonenlarged thoracic aortic arch. RAD/Chest 1 View (Portable) IMPRESSION: No acute disease. Electronically Signed: Alhaji Rangel MD at 13:47 EST ,
--- NOTE | 2024-11-04 13:08 | EKG12_ITS ---
Test Reason : GENERAL Blood Pressure : */* mmHG Vent. Rate : 97 BPM Atrial Rate : 97 BPM P-R Int : 172 ms QRS Dur : 84 ms QT Int : 342 ms P-R-T Axes : 58 16 27 degrees QTcB Int : 434 ms Normal sinus rhythm Cannot rule out Septal infarct , age undetermined Abnormal ECG Confirmed by Saud Moran ([id number]), editorial cartoonist NORAH BECKHAM ([id number]) on 11/05/2024 9:36:47 AM Referred By: Dandre Dolan Confirmed By: Saud Moran
--- NOTE | 2024-11-04 13:14 | EDS_ITS ---
HPI <OSMAR Ayala - Last Filed: 11/04/24 17:07> HPI - Psych History of Present Illness Chief Complaint: Anxiety Narrative Narrative: 79-year-old female with PMH of HTN, DM2 presents with increasing anxiety. 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 She has been on citalopram for years. She saw her primary care doctor recently and was prescribed new medications that are not helping. I called [facility] and she was given Ativan 0.5 mg quantity 5 tablets on October 28 and then BuSpar 5 mg tablets to take 3 times daily on November 02 but she states these have not helped. She had a panic attack this morning and called her son who took her to the fire station. She had normal vital signs. Patient missed her primary care doctor appointment due to the el ic attack and after calling the office they recommended she come to the ED for evaluation. She reports feeling depressed and states she thought about taking a bunch of pills this morning. She is not homicidal. She denies history of suicide attempts or mental health hospitalization. <Dr. Dandre Dolan MD - Last Filed: 11/04/24 21:11> HPI - Psych History of Present Illness Detail of Chief Complaint: Patient is stressed, depressed and voiced suicidal thoughts. Informant: patient Onset/Context/Timing Onset: - (Building up over some time) Context: Gradual Onset Conflict: Family (Has to care for her and expects to be cared for. She made the comment that he needs to be cared for hand and foot .) Timing: Continuous and Waxes and wanes Current Severity: Moderate Maximum Severity: Severe Relieved by: Nothing PFSH <OSMAR Ayala - Last Filed: 11/04/24 17:07> PFS Medical History Constipation Fecal incontinence Anemia Depression Full incontinence of feces Stage 3b chronic kidney disease (CKD) Wears dentures Ambulates with cane Easy bruising Blackout Non-smoker CPAP (continuous positive airway pressure) dependence Shortness of breath on exertion Hoarseness Essential hypertension Bradycardia Junctional escape rhythm Dehydration Orthostatic hypotension Pulmonary emboli Unresponsive episode Anxiety and depression Sleep apnea Heart murmur Near syncope Elevated TSH Chronic renal failure, stage 3 (moderate) Obesity (BMI 30-39.9) Osteoarthritis Radicular pain of right lower extremity Chronic back pain Hyperlipidemia Exertional dyspnea Home Medications ?Medication ?Instructions ?Recorded ?Last Taken ?Type acetaminophen 325 mg tablet 325 mg PO ONCE PRN fever or pain 04/22/24 Unknown History (Tylenol) loperamide 2 mg capsule 2 mg PO Q6H PRN loose stool 04/22/24 Unknown History (Anti-Diarrheal (loperamide)) menthol 4 % topical gel (Biofreeze 1 applic topical QD-BID PRN pain 04/22/24 Unknown History (menthol)) multivitamin 1 tab PO DAILY 04/22/24 Unknown History citalopram 40 mg tablet 40 mg PO DAILY #90 tabs 09/19/24 Unknown Rx amlodipine 5 mg tablet 5 mg PO DAILY #90 tabs 09/21/24 Unknown Rx cholecalciferol (vitamin D3) 50 50 mcg PO DAILY #90 caps 09/21/24 Unknown Rx mcg (2,000 unit) capsule gabapentin 300 mg capsule 300 mg PO TID #90 caps 09/21/24 Unknown Rx losartan 100 mg tablet 100 mg PO QHS #90 tabs 09/21/24 Unknown Rx nortriptyline 50 mg capsule 50 mg PO QHS #90 caps 09/21/24 Unknown Rx simvastatin 10 mg tablet 10 mg PO QHS #90 tabs 09/21/24 Unknown Rx calcium carbonate 500 mg PO QDAY 10/14/24 Unknown History lactobacillus combination no.9 4 4,000 mmu cells PO QDAY 10/14/24 Unknown History billion cell capsule (Adult 50 Plus Probiotic) omega 1-nfw-fsi-fish oil 60 mg-90 1 cap PO QDAY 10/14/24 Unknown History mg-500 mg capsule (Fish Oil) zinc PO 10/14/24 Unknown History buspirone 5 mg tablet 5 mg PO TID #30 tabs 11/02/24 Unknown Rx lorazepam 0.5 mg tablet (Ativan) 0.5 mg PO BID PRN 11/02/24 Unknown History montelukast 10 mg tablet 10 mg PO DAILY 11/04/24 Unknown History Allergy/AdvReac Type Severity Reaction Status Date / Time No Known Allergies Allergy Verified 11/04/24 12:54 Family History Mother Hypertension CVA (cerebral vascular accident) Father Hypertension Heart disease Brother Heart murmur Surgical History Hx of total hip arthroplasty History of right hip replacement (~10/2021) History of colonoscopy History of back surgery (~2014) History of left hip replacement (~2016) Social History adopted: No household members: spouse housing: assisted living facility number of children: 2 current occupational status: retired current occupation: worked multiple jobs pets and animals: Yes (1) pets and animals: cat(s) Smoking Status: Never smoker Electronic Cigarette Use: not used alcohol intake: never substance use type: does not use caffeine: No what type of physical activity do you participate in: none do you feel safe at home: Yes ROS <OSMAR Ayala - Last Filed: 11/04/24 17:07> ROS ED ROS Narrative Constitutional: Negative for fever, chills. CVS: Negative for palpitations, chest pain. Respiratory: Negative for shortness of breath. GI: Negative for abdominal pain, nausea, vomiting. : Negative for dysuria, frequency. Neuro: Negative for headache. EXAM <OSMAR Ayala - Last Filed: 11/04/24 17:07> Physical Exam Narrative Exam Narrative: CONST: Patient sitting in no acute distress. EYES: Normal inspection. ENT: Normal inspection, moist mucous membranes. NECK: Normal inspection. RESP: No respiratory distress, CTAB. CVS: Regular rate and rhythm, no murmur, no gallop. ABD: Soft and nontender, no guarding or rebound, nondistended. SKIN: Color normal, no rash, warm, dry, intact. EXTREMITIES: Normal appearance, no pedal edema. NEURO: Alert and answering questions appropriately. PSYCH: Anxious. Const Vital Signs: 11/04/24 12:50 11/04/24 17:00 Temperature 97.8 F Temperature Source Oral Pulse Rate 102 H 77 Respiratory Rate 16 18 Blood Pressure 176/84 H Blood Pressure Mean 114 Pulse Ox 100 98 Oxygen Delivery Method Room Air <Dr. Dandre Dolan MD - Last Filed: 11/04/24 21:11> Physical Exam Const Vital Signs: 11/04/24 12:50 11/04/24 17:00 Temperature 97.8 F Temperature Source Oral Pulse Rate 102 H 77 Respiratory Rate 16 18 Blood Pressure 176/84 H Blood Pressure Mean 114 Pulse Ox 100 98 Oxygen Delivery Method Room Air [facility] <OSMAR Ayala - Last Filed: 11/04/24 17:07> [facility] Narrative Medical decision making narrative: History gathered from: patient, son 79-year-old female presents with worsening anxiety and depression with suicidal ideation with plan to overdose on pills. She was treated for anxiety by primary care over the last week but symptoms continue to worsen. She is awake and alert and mildly anxious but has insight and is cooperative. She was hypertensive at 176/84, heart rate 102, otherwise normal. Testing was obtained for medical clearance. CBC and BMP unremarkable. Creatinine of 1.27 is around her baseline with CKD. Glucose is 110. Drug and alcohol screens are negative. Urinalysis negative for infection. She is not confused or altered and I do not think a CT brain scan is indicated. At this point she is medically cleared and will need evaluated by social work for anxiety and depression. Social work recommended transfer to a psychiatric facility for mental health evaluation. She cannot easily do intensive outpatient therapy because she lives in [place] and would have to get a ride every day. Patient states she does not want to go home feeling this way and would just come back. I have personally performed a face to face assessment of the patient and have reviewed the CHUCKY Note. I performed a substantive portion of the visit including all aspects of the following. My lamas findings include: History is the H&P portion of the chart was completed by me. Patient with d epression, anxiety and being stressed. She states she is at her wits end. She voiced suicidal thoughts. She specifically said she would take her pills. She has never seen a psychologist. She is never seen a psychiatrist. She is never been admitted to a psychiatric facility. Exam is remarkable for patient patient being tearful somewhat anxious. She states she cannot deal with this any longer. She does not have suicidal ideation. Will consult case management. I believe patient is a candidate for intense outpatient therapy if case management is in agreement and is able to make arrangements. Do not believe she needs to be admitted to the hospital. Medical Decision Making noted under the physical portion to consult case management and make arrangement for outpatient treatment versus inpatient treatment. Other additions or changes: [None] Lab Data Labs: Laboratory Results - last 24 hr 11/04/24 11/04/24 13:15 13:20 WBC 6.7 RBC 3.93 L Hgb 12.1 Hct 35.7 L MCV 90.8 MCH 30.8 MCHC 33.9 RDW Std Deviation 39.5 RDW Coeff of Joseph 11.9 Plt Count 282 MPV 9.1 Immature Gran % (Auto) 0.400 Neut % (Auto) 59.9 Lymph % (Auto) 27.9 Aurora % (Auto) 10.3 H Eos % (Auto) 0.6 Baso % (Auto) 0.9 Absolute Neuts (auto) 4.0 Absolute Lymphs (auto) 1.88 Nucleated RBC % 0 Sodium 136 Potassium 3.5 Chloride 102 Carbon Dioxide 25.0 Anion Gap 9 BUN 15 Creatinine 1.27 H Estim Creat Clear Calc 42.58 Est GFR (MDRD) Af Amer 52 L Est GFR (MDRD) Non-Af 43 L BUN/Creatinine Ratio 11.8 Glucose 110 H Calcium 10.3 H Total Bilirubin 0.50 AST 18 ALT 25 Alkaline Phosphatase 112 Total Protein 7.4 Albumin 3.9 Globulin 3.5 Albumin/Globulin Ratio 1.1 Urine Color Yellow Urine Clarity Sl. Cloudy Urine pH 7.0 Ur Specific Pike 1.005 Urine Protein Negative Urine Glucose (UA) Normal Urine Ketones Negative Urine Occult Blood 10 H Urine Nitrite Negative Urine Bilirubin Negative Urine Urobilinogen Normal Ur Leukocyte Esterase Negative Urine RBC 0-5 SEEN Urine WBC 0 SEEN Ur Squamous Epith Cells 0 SEEN Urine Bacteria 0 SEEN Urine Mucus 0 SEEN Urine Opiates Screen NEGATIVE Urine Methadone Screen NEGATIVE Ur Barbiturates Screen NEGATIVE Ur Phencyclidine Scrn NEGATIVE Ur Amphetamines Screen NEGATIVE MDMA (Ecstasy) Screen NEGATIVE U Benzodiazepines Scrn NEGATIVE Urine Cocaine Screen NEGATIVE U Cannabinoids Screen NEGATIVE Ur Drug Screen Comment Ethyl Alcohol < 3.0 Radiography Diagnostic Testing: Clinical Impression(s) from Imaging Studies Chest X-Ray 11/04/24 13:07 IMPRESSION: No acute disease. Electronically Signed: Alhaji Rangel MD at 13:47 EST , <Dr. Dandre Dolan MD - Last Filed: 11/04/24 21:11> [facility] MDM Narrative Medical decision making narrative: History gathered from: patient, son 79-year-old female presents with worsening anxiety and depression with suicidal ideation with plan to overdose on pills. She was treated for anxiety by primary care over the last week but symptoms continue to worsen. She is awake and alert and mildly anxious but has insight and is cooperative. She was hypertensive at 176/84, heart rate 102, otherwise normal. Testing was obtained for medical clearance. CBC and BMP unremarkable. Creatinine of 1.27 is around her baseline with CKD. Glucose is 110. Drug and alcohol screens are negative. Urinalysis negative for infection. She is not confused or altered and I do not think a CT brain scan is indicated. At this point she is medically cleared and will need evaluated by social work for anxiety and depression. Social work recommended transfer to a psychiatric facility for mental health evaluation. She cannot easily do intensive outpatient therapy because she lives in [place] and would have to get a ride every day. Patient states she does not want to go home feeling this way and would just come back. I have personally performed a face to face assessment of the patient and have reviewed the CHUCKY Note. I performed a substantive portion of the visit including all aspects of the following. My lamas findings include: History is the H&P portion of the chart was completed by me. Patient with depression, anxiety and being stressed. She states she is at her wits end. She voiced suicidal thoughts. She specifically said she would take her pills. She has never seen a psychologist. She is never seen a psychiatrist. She is never been admitted to a psychiatric facility. Exam is remarkable for patient patient being tearful somewhat anxious. She states she cannot deal with this any longer. She does not have suicidal ideation. Will consult case management. I believe patient is a candidate for intense outpatient therapy if case management is in agreement and is able to make arrangements. Do not believe she needs to be admitted to the hospital. Medical Decision Making noted under the physical portion to consult case management and make arrangement for outpatient treatment versus inpatient treatment. Other additions or changes: Additional labs were requested by the accepting facility. These were done. They are unremarkable. She she was excepted at [facility]. Lab Data Attestation: I reviewed the patient's lab results. Lab results narrative: CBC is unremarkable. Basic metabolic panel reveals elevated creatinine of 1.27 with an estimated GFR 43. Glucose slightly elevated 110 with normal CO2 anion gap. Urine is negative. Talk screen is negative. Alcohol level is negative. Patient's had elevated creatinine in the past. Labs: Laboratory Results - last 24 hr 11/04/24 11/04/24 13:15 13:20 WBC 6.7 RBC 3.93 L Hgb 12.1 Hct 35.7 L MCV 90.8 MCH 30.8 MCHC 33.9 RDW Std Deviation 39.5 RDW Coeff of Joseph 11.9 Plt Count 282 MPV 9.1 Immature Gran % (Auto) 0.400 Neut % (Auto) 59.9 Lymph % (Auto) 27.9 Aurora % (Auto) 10.3 H Eos % (Auto) 0.6 Baso % (Auto) 0.9 Absolute Neuts (auto) 4.0 Absolute Lymphs (auto) 1.88 Nucleated RBC % 0 Sodium 136 Potassium 3.5 Chloride 102 Carbon Dioxide 25.0 Anion Gap 9 BUN 15 Creatinine 1.27 H Estim Creat Clear Calc 42.58 Est GFR (MDRD) Af Amer 52 L Est GFR (MDRD) Non-Af 43 L BUN/Creatinine Ratio 11.8 Glucose 110 H Calcium 10.3 H Total Bilirubin 0.50 AST 18 ALT 25 Alkaline Phosphatase 112 Total Protein 7.4 Albumin 3.9 Globulin 3.5 Albumin/Globulin Ratio 1.1 Urine Color Yellow Urine Clarity Sl. Cloudy Urine pH 7.0 Ur Specific Pike 1.005 Urine Protein Negative Urine Glucose (UA) Normal Urine Ketones Negative Urine Occult Blood 10 H Urine Nitrite Negative Urine Bilirubin Negative Urine Urobilinogen Normal Ur Leukocyte Esterase Negative Urine RBC 0-5 SEEN Urine WBC 0 SEEN Ur Squamous Epith Cells 0 SEEN Urine Bacteria 0 SEEN Urine Mucus 0 SEEN Urine Opiates Screen NEGATIVE Urine Methadone Screen NEGATIVE Ur Barbiturates Screen NEGATIVE Ur Phencyclidine Scrn NEGATIVE Ur Amphetamines Screen NEGATIVE MDMA (Ecstasy) Screen NEGATIVE U Benzodiazepines Scrn NEGATIVE Urine Cocaine Screen NEGATIVE U Cannabinoids Screen NEGATIVE Ur Drug Screen Comment Ethyl Alcohol < 3.0 Radiography Chest X-Ray - ED: 1 View, Read by ED Physician (Bill was independent reviewed interpreted by me.), Normal, Heart, Mediastinum, Bony Structures and No Acute Disease Diagnostic Testing: Clinical Impression(s) from Imaging Studies Chest X-Ray 11/04/24 13:07 IMPRESSION: No acute disease. Electronically Signed: Alhaji Rangel MD at 13:47 EST , Discharge Plan Triage Chief Complaint: Anxiety ED Midlevel Provider: Tere Gibbons ED Provider: Dandre Dolan Dx/Rx/DC Orders Clinical Impression: Anxiety, Suicidal ideation Prescriptions: No Action Biofreeze (menthol) 4 % gel 1 applic topical QD-BID PRN (Reason: pain) loperamide [Anti-Diarrheal (loperamide)] 2 mg capsule 2 mg PO Q6H PRN (Reason: loose stool) multivitamin Tablet 1 tab PO DAILY acetaminophen [Tylenol] 325 mg tablet 325 mg PO ONCE PRN (Reason: fever or pain) calcium carbonate 500 mg calcium (1,250 mg) tablet 500 mg PO QDAY zinc PO omega 8-upf-qvp-fish oil [Fish Oil] 60-90-500 mg capsule 1 cap PO QDAY Adult 50 Plus Probiotic 4 billion cell capsule 4,000 mmu cells PO QDAY Rx Instructions: administer with a meal lorazepam [Ativan] 0.5 mg tablet 0.5 mg PO BID PRN buspirone 5 mg tablet 5 mg PO TID Qty: 30 0RF montelukast 10 mg tablet 10 mg PO DAILY citalopram 40 mg tablet 40 mg PO DAILY Qty: 90 0RF amlodipine 5 mg tablet 5 mg PO DAILY Qty: 90 0RF cholecalciferol (vitamin D3) 50 mcg (2,000 unit) capsule 50 mcg PO DAILY Qty: 90 0RF losartan 100 mg tablet 100 mg PO QHS Qty: 90 0RF nortriptyline 50 mg capsule 50 mg PO QHS Qty: 90 0RF simvastatin 10 mg tablet 10 mg PO QHS Qty: 90 0RF gabapentin 300 mg capsule 300 mg PO TID Qty: 90 0RF Primary Care Provider: Lisa Thomas Referrals: Lisa Thomas MD [Primary Care Provider] - Print Language: Ugand[place]
[2024-11-04 13:35] LABS: Absolute Lymphocyte Count 1.88 X10^3/uL (0.83-4.51); Basophil# 0.06 X10^3/uL; Basophil% 0.9 % (0-1); Eosinophil# 0.04 X10^3/uL; Eosinophils% 0.6 % (0-5); Hematocrit 35.7 % (37-47); Hemoglobin 12.1 g/dL (12.0-15.0); Lymphocyte # 1.88 X10^3/ul (0.83-4.51); Lymphocyte % 27.9 % (19-41); Mean Corp Hgb Conc 33.9 g/dL (32-36); Mean Corpuscular Hgb 30.8 pg (27.0-32.0); Mean Corpuscular Volume 90.8 fL (81-99); Mean Platelet Vol. 9.1 fl (6.2-12.0); Monocyte# 0.69 X10^3/uL; Monocyte% 10.3 % (0-10); NRBC Flagged by Analyzer 0 % (0-5); Neutrophil # 4.03 X10^3/uL (2.7-7.7); Neutrophil % 59.9 % (47-70); Platelet Count 282 K/mm3 (150-450); RBC Distribution Width CV 11.9 % (11.6-14.6); RBC Distribution Width SD 39.5 fl (35.1-43.9); Red Blood Count 3.93 M/mm3 (4.2-5.4); White Blood Count 6.7 K/mm3 (4.4-11.0)
[2024-11-04 13:54] LABS: Alcohol, Blood (Medical)-Serum < 3.0 mg/dL
[2024-11-04 13:56] LABS: ALB/GLOB Ratio 1.1 RATIO (0.9-2.4); AST(SGOT) 18 U/L (15-37); Alanine Aminotransfer ALT/SGPT 25 U/L (13-56); Albumin, Serum 3.9 g/dL (3.2-5.0); Alkaline Phosphatase 112 U/L (45-117); Anion Gap 9 (5-15); BUN 15 mg/dL (7-18); BUN/Creat Ratio 11.8 RATIO (10-20); Calcium,Total 10.3 mg/dL (8.5-10.1); Chloride 102 mmol/L (98-107); Creatinine, Serum 1.27 mg/dL (0.55-1.02); EST Glomerular Filtration Rate 43 mL/min (>60); Est Glom Filt Rate - Afr Amer 52 mL/min (>60); Estimated Creatinine Clearance 42.58 ml/min; Globulin 3.5 g/dL (2.2-4.2); Glucose 110 mg/dL (74-106); Potassium 3.5 mmol/L (3.5-5.1); Protein, Total 7.4 g/dL (6.4-8.2); Sodium Level 136 mmol/L (136-145)
[2024-11-04 14:02] LABS: Amphetamine Urine VISTA NEGATIVE (<1000 ng/mL); Barbiturate Urine VISTA NEGATIVE (< 200 ng/mL); Benzodiazepine Urine VISTA NEGATIVE (< 200 ng/mL); Cocaine Urine VISTA NEGATIVE (< 300 ng/mL); Ecstacy Urine VISTA NEGATIVE (< 500 ng/mL); Methadone Urine VISTA NEGATIVE (< 300 ng/mL); PCP Urine VISTA NEGATIVE (< 25 ng/mL); THC Urine VISTA NEGATIVE (< 50 ng/mL); Vista UDS pH Range 6
[2024-11-04 14:07] LABS: Bacteria 0 SEEN /hpf (None Seen); Color, Urine Yellow (Yellow); Glucose, Dipstick Normal (Normal); Ketone-Dipstick Negative (Negative); Leukocyte Esterase-Dipstick Negative /ul (Negative); Mucous, Urine 0 SEEN /hpf (<or=2+); Nitrite-Dipstick Negative (Negative); Occult Blood-Urine 10 /ul (Negative); Protein-Dipstick Negative (Negative); Specific Gravity, Urine 1.005 (1.002-1.030); Squamous Epithelial Cells - UA 0 SEEN /hpf (5-10); Urine Bilirubin Dipstick Negative (Negative); Urine Clarity Sl. Cloudy (Clear); Urine Urobilinogen Normal (Normal); White Blood Cells 0 SEEN /hpf (0-5)
[2024-11-04 14:14] LABS: Red Blood Cells-Urine 0-5 SEEN /hpf (0-5)
[2024-11-04 17:00] VITALS: PULSE 77; RESP 18; O2SAT 98
--- NOTE | 2024-11-04 18:24 | CM.ED ---
Social Work Psychiatric Assessment Reason for consult: anxiety; mental health Informant(s): Patient, medical records, and patient?s sonVishal Chief Complaint: Per triage notes, patient stated having ?terrible anxiety? and feeling as if patient could not be at home anymore. Patient stated that the anxiety has been building for ?awhile? and patient also reported having stress due to being patient?s ?s primary caregiver. Patient admitted in triage to having thoughts this morning of ?taking a bunch of pills.? During conversation with this healthcare social worker, patient stated feeling alone due to patient?s always sleeping. Patient stated feeling overwhelmed, hopeless, and helpless. Patient stated hating to be ?cooped up? and reported having an increase of ?just walking and crying? in the home. Patient reported often during conversation that patient was claustrophobic, requesting the door remain open; patient?s son reported this is new for patient. Patient reported not being able to sleep in bed due to the ?anxious thoughts? and patient reported having to sleep in patient?s chair (patient stated sleep is still ?not good? in the chair). Patient stated wanting ?help? as motivation behind patient?s comments this morning. Patient clarified wanting help with patient?s ?s care and patient?s housework. Patient stated having a hard time concentrating and rated patient?s anxiety as a ?10? on a scale from 1 to 10. Patient stated a desire to ?just stop feeling so bad? and patient reported believing patient?s life has been ?filled with a series of mistakes.? Patient elaborated when asked, stating that patient has been 3 times and feels as if those were mistakes. Patient?s son reported patient had a panic attack this morning, drove around town despite being asked to stay where patient was, and then ended up at the local fire station where patient?s son found patient. Patient?s son brought patient to [facility] ED and stated that twice on the way to the ED, patient stated not knowing where patient was going. Marital/Social History/Sexual Orientation/Gender Identity: Patient is an 79 year old female. Patient has been to patient?s current for ?about 25 years.? Patient reports having been 3 times and the father of patient?s 2 children was patient?s first . Living Situation: Patient lives in [facility] in [place]. Patient reports having lived inside the main facility for almost a year, but reported moving out to the townhouses on the campus due to it being cheaper. Patient states much stress over the cost of [facility]. Prior to living at [facility] for the last year and a half, [place] patient[place]s . Patient stated also feeling as if patient has been ?shut off? to [facility] staff after moving out into the townhouses. Patient stated feeling this way due to having patient?s own doctors rather than utilizing [facility]?s medical staff. DME at home: Patient reports sleeping with a CPAP every night. Support/Resources: Patient stated patient?s sister is a support despite patient?s sister living in [place]. Patient stated having some friends patient enjoys hanging out with, but patient feels patient cannot talk to friends about what patient is struggling with currently. History: None Education and Employment History: Patient stated being retired, but working previously at [employer] and other [email or web address]. Patient stated graduating high school and patient reported having some difficulty with reading and comprehending material in school. Patient reported being in the middle of 8 siblings, so patient reported feeling as if she ?got lost in the mix? often. Mental Health Treatment/History: Patient reported going to counseling ?years ago? when patient moved to [place] with patient?s 2nd . Patient stated patient?s children wanted to stay in [place] with their father and patient reported having much difficulty with this. Patient stated going one time to this counselor and not having a good experience. Patient?s medications are prescribed by patient?s PCP, Lisa Thomas. Patient has been on Citalopram for years, was given Ativan on October 28 by another ED, and then was given Buspar by patient?s PCP on November 02. Patient stated medication is not working the way patient would like it to work. Patient states having diagnoses of anxiety and depression. Patient?s son reported patient?s mother had dementia and Alzheimer?s and patient?s son reported wondering if patient is beginning to develop dementia as well. Triggers/Stressors to mental health: Patient stated the cost of [facility] and being patient?s ?s primary caregiver to be stressors. Patient stated not feeling well since [facility], stating ?it has all gone downhill from there.? Coping Skills: Patient stated patient?s cat, Curly, going out to eat with friends, and Bible study are helpful coping skills. History of Abuse (physical/sexual/verbal/emotional): Patient denies any historical or current abuse. Substance Abuse Current/Historical: Patient denies any historical or current substance abuse. Risk to Self/Others: ? Suicidal (thought/plan/intent/attempt): see C-SSRS ? Access to Lethal Means: Patient has access to medication in the home. ? Homicidal (thought/plan/intent/attempt): Patient denies current or historical homicidal thoughts, plans, intent, or attempts. ? History of Violence (self/others/objects): Patient denies current or historical violence toward self, others, or objects. Mental Status Exam: ??? Orientation: patient was oriented to time, place, and person. ??? Memory: fair Appearance/General Behavior: clean, slumped, directable Mood/Affect: anxious Communication Pattern: responds to questions, able to elaborate when asked, tangential Thought Process: appropriate, preoccupied by anxiety General Intellectual Functioning: average Judgment: fair Insight: good [place] SS[place] SUICIDAL IDEATION Ask questions 1 and 2.? If both are negative, proceed to ?Suicidal Behavior? section. If the answer question 2 is yes, ask questions 3, 4, 5.? If the answer to question 1 and/or 2 is ?yes?, complete ?Intensity of Ideation? section below. 1. Wish to be ? Subject endorses thoughts about a wish to be or not alive anymore, or wish to fall asleep and not wake up. Have you wished you were or wished you could go to sleep and not wake up? Lifetime: Time He/She Paron Most Suicidal: ?yes Past 1 month: no Please Describe if yes: ?patient reports having thoughts a few years ago of ?why am I living?? as well as questioning purpose in life.?? Could not recall what was happening in life at the time but states this was a ?few years ago.? 2. Non-Specific Active Suicidal Thoughts General, non-specific thoughts of wanting to end one?s life/commit suicide (e.g., ?I?ve thought about killing myself?) without thoughts of ways to kills oneself/associated methods, intent, or plan during the assessment period.? Have you actually had any thoughts of killing yourself? Lifetime: Time He/She Paron Most Suicidal: ?yes Past 1 month: yes Please Describe if yes: patient stated having thoughts this morning of wanting to take medication, but patient reported having no concept of dying from the medication. 3. Active Suicidal Ideation with Any Methods (Not Plan) without Intent to Act Subject endorses thoughts of suicide and has thought of at least one method during the assessment period.? This is different than a specific plan with time, place, or method details worked out (e.g., thought of method to kills self but not a specific plan).? Includes person who would say ?I thought about thanking an overdose, but I never made a specific plan as to when, where or how. I would actually do it, and I would never go through with it.? Have you been thinking about how you might do this? Lifetime: Time He/She Paron Most Suicidal: ?yes Past 1 month:? yes Please Describe if yes: patient stated believing that if patient stated patient would take ?a bunch of medication? this morning, then it would get patient ?help.? Patient stated desiring to have help with aides, patient?s ?s care, and basic house cleaning. 4. Active Suicidal Ideation with Some Intent to Act, without Specific Plan Active suicidal thoughts of kills oneself fand subject reports having some intent to act on such thoughts, as opposed to ?I have the thoughts but I definitely will not do anything about them.? Have you had these thoughts and had some intention of acting on them? Lifetime: Time He/She Paron Most Suicidal: no Past 1 month: no Please Describe if yes: N/A 5. Active Suicidal Ideation with Specific Plan and Intent Thoughts of kills oneself with details of plan fully or partially worked out and subject has some intent to care it out. Have you started to work out or worked out the details of how to kill yourself? Do you intend to carry out this plan? Lifetime: Time He/She Paron Most Suicidal: no Past 1 month: no Please Describe if yes: N/A INTENSITY OF IDEATION The following feature should be rated with respect to the most sever type of ideation (i.e., 1-5 from above, with 1 being the least severe and 5 being the most severe). Ask about time he/she/they were feeling the most suicidal.? Lifetime - Most Severe Ideation: Type # (1-5): 3 Description: patient stated believing that if patient stated patient would take ?a bunch of medication? this morning, then it would get patient ?help.? Patient stated desiring to have help with aides, patient?s ?s care, and basic house cleaning. Recent - Most Severe Ideation: Type # (1-5): 2 Description: patient stated believing that if patient stated patient would take ?a bunch of medication? this morning, then it would get patient ?help.? Patient stated desiring to have help with aides, patient?s ?s care, and basic house cleaning. Frequency How many times have you had these thoughts? Lifetime: (1) Less than once a week??? (2) Once a week?? (3)? 2-5 times in week??? (4) Daily or almost daily??? (5) Many times each day Recent, Past 1 month:? (1) Less than once a week??? (2) Once a week?? (3)? 2-5 times in week??? (4) Daily or almost daily??? (5) Many times each day Duration When you have the thoughts how long do they last? Lifetime: (1) Fleeting - few seconds or minutes? (2) Less than 1 hour/some of the time? (3) 1-4 hours/a lot of time? 4) 4-8 hours/most of day? (5) More than 8 hours/persistent or continuous Recent, Past 1 month :? (1) Fleeting - few seconds or minutes? (2) Less than 1 hour/some of the time? (3) 1-4 hours/a lot of time? 4) 4-8 hours/most of day? (5) More than 8 hours/persistent or continuous Controllability Could/can you stop thinking about killing yourself or wanting to if you want to? Lifetime: ?(1) Easily able to control thoughts?? (2) Can control thoughts with little difficulty??? (3) Can control thoughts with some difficulty??? 4) Can control thoughts with a lot of difficulty? (5) Unable to control thoughts?? (0) Does not attempt to control thoughts Recent, Past 1 month: (1) Easily able to control thoughts?? (2) Can control thoughts with little difficulty??? (3) Can control thoughts with some difficulty??? 4) Can control thoughts with a lot of difficulty? (5) Unable to control thoughts?? (0) Does not attempt to control thoughts Deterrents Are there things - anyone or anything (e.g., family, restoration, pain of ) - that stopped you from wanting to or acting on thoughts of committing suicide? Lifetime:? (1) Deterrents definitely stopped you from attempting suicide? (2) Deterrents probably stopped you?? (3) Uncertain that deterrents stopped you? (4) Deterrents most likely did not stop you? (5) Deterrents definitely did not stop you?? 0) Does not apply??? Recent:??? (1) Deterrents definitely stopped you from attempting suicide? (2) Deterrents probably stopped you?? (3) Uncertain that deterrents stopped you? (4) Deterrents most likely did not stop you? (5) Deterrents definitely did not stop you?? 0) Does not apply??? Reasons for Ideation What sort of reasons did you have for thinking about wanting to or killing yourself? Was it to end the pain or stop the way you were feeling (in other words you couldn?t go on living with this pain or how you were feeling) or was it to get attention, revenge or a reaction from others? Or both? Lifetime: (1) Completely to get attention, revenge or a reaction from? ?(2) Mostly to get attention, revenge or a reaction from others? (3) Equally to get attention, revenge or a reaction from others ?and to end/stop the pain?? ( 4) Mostly to end or stop the pain (you couldn?t go on living with the pain or how you were feeling)??? (5) Completely to end or stop the pain (you couldn?t go on living with the pain or? how you were feeling)??? (0)? Does not apply? Recent: (1) Completely to get attention, revenge or a reaction from?? (2) Mostly to get attention, revenge or a reaction from others? (3) Equally to get attention, revenge or a reaction from others? and to end/stop the pain??? (4) Mostly to end or stop the pain (you couldn?t go on living with the pain or how you were feeling)?? (5) Completely to end or stop the pain (you couldn?t go on living with the pain or? how you were feeling)?? (0)? Does not apply? SUICIDAL BEHAVIOR Actual Attempt: A potentially self-injurious act committed with at least some wish to , as a result of act.? Behavior was in part thought of as method to kill oneself.? Intent does not have to be 100%.? If there is any intent/desire to associated with the act, then it can be considered an actual suicide attempt.? There does not have to be any injury of harm, just the potential for injury or harm.? If person pulls trigger while gun is in mouth, but gun is broken so no injury results, this is considered an attempt.? Inferring intent:? Even if an individual denies intent/wish to , it may be inferred clinically from the behavior or circumstances.? For example, a highly lethal act that is clearly not an accident so no other intent but suicide can be inferred (e.g. gunshot to head, jumping from window of a high floor/story).? Also, if someone denies intent to , but they thought that what they did could be lethal, intent may be inferred.? Have you made a suicide attempt? Have you done anything to harm yourself? Have you done anything dangerous where you could have ? What did you do? Did you as a way to end your life? Did you want to (even a little) when you ? Were you trying to end your life when you ? Or did you think it was possible you could have from ? Or did you do it purely for other reasons/without ANY intention of killing yourself like to relieve stress, feel better, get sympathy, or get something else to happen)? (Self -Injurious Behavior without suicidal intent) Lifetime: no Past 3 months: no If yes, describe: Patient stated only having the thought today about wanting to take a lot of medication. Patient stated patient did not have an intent to . Total # of Attempts in His/Her Lifetime: N/A Total # of attempts in Past 3 months: N/A Has person engaged in Non-Suicidal Self-Injurious Behavior? Lifetime: no Past 3 months: no Interrupted Attempt:? When the person is interrupted (by an outside circumstance) from starting the potentially self-injurious act (if not for that, actual attempt would have occurred).? Overdose: Person has pills in hand but is stopped from ingesting. Once they ingest any pills, this becomes an attempt rather than an interrupted attempt. Shooting: Person has gun pointed toward self, gun is taken away by someone else, or is somehow prevented from pulling trigger. Once they pull the trigger, even if the gun fails to fire, it is an attempt. Jumping: Person is poised to jump, is grabbed and taken down from ledge.? Hanging: Person has noose around neck but has not yet started to hang self -is stopped from doing so.? Has there been a time when you started to do something to end your life but someone or something stopped you before you did anything? Lifetime: no Past 3 months: no If yes, describe: ?N/A Total # of interrupted attempts in His/Her Lifetime: N/A Total # of interrupted attempts in Past 3 months: N/A Aborted or Self-Interrupted Attempt:? When person begins to take steps toward making a suicide attempt, but stops themselves before they have actually engaged in any self-destructive behavior. Examples are like interrupted attempts, except that the individual stops him/herself, instead of being stopped by something else. Has there been a time when you started to do something to try to end your life, but you stopped yourself before you did anything? Lifetime: no Past 3 months: no If yes, describe: N/A Total # of aborted or self-interrupted attempts in His/Her Lifetime: N/A Total # of aborted or self-interrupted attempts in Past 3 months: N/A Preparatory Acts or Behavior:? Acts or preparation towards imminently making a suicide attempt. This can include anything beyond a verbalization or thought, such as assembling a specific method (e.g., buying pills, purchasing a gun) or preparing for one?s by suicide (e.g., giving things away, writing a suicide note). Have you taken any steps towards making a suicide attempt or preparing to kill yourself (such as collecting pills, getting a gun, giving valuables away or writing a suicide note)? Lifetime: yes Past 3 months: yes If yes, describe: patient reported considering writing a letter yesterday or today to ?take care of Curly? (patient?s cat). Total # of preparatory acts in His/Her Lifetime: 1 Total # of preparatory acts in Past 3 months: 1 Lethality/Medical Damage:??? 0.? No physical damage or very minor physical damage (e.g., surface scratches). 1.? Minor physical damage (e.g., lethargic speech; first-degree sheets; mild bleeding; sprains). 2.? Moderate physical damage; medical attention needed (e.g., conscious but sleepy, somewhat responsive; second-degree sheets; bleeding of major vessel). 3.? Moderately severe physical damage; medical hospitalization and likely intensive care required (e.g., comatose with reflexes intact; third-degree sheets less than 20% of body; extensive blood loss but can recover; major fractures). 4.? Severe physical damage; medical hospitalization with intensive care required (e.g., comatose without reflexes; third-degree sheets over 20% of body; extensive blood loss with unstable vital signs; major damage to a vital area). 5.? Most Recent attempt Date: na Code: Most Lethal Attempt Date: na Code: Initial/First Attempt Date: na Code: Potential Lethality: ?Only Answer if Actual Lethality=0 Likely lethality of actual attempt if no medical damage (the following examples, while having no actual medical damage, had potential for very serious lethality: put gun in mouth and pulled the trigger but gun fails to fire so no medical damage; laying on train tracks with oncoming train but pulled away before run over). 0 = Behavior not likely to result in injury 1 = Behavior likely to result in injury but not likely to cause 2 = Behavior likely to result in despite available medical care Most Recent Attempt Code: Most Lethal Attempt Code: na Initial/First Attempt Code: ?na Assessment Summary: Due to patient?s high anxiety, lack of coping skills, high stress level, lack of sleep, and recent medication changes, patient would benefit from inpatient treatment for stabilization and evaluation of medication. Spoke with doctor who agrees. Plan: inpatient mental health treatment Evy Tate, MOLDING MACHINE OPERATOR HELPER, PROCESS TRAINER
--- NOTE | 2024-11-04 18:33 | CM.ED ---
Social work Referral sent to [facility] (f: [phone]). Mary Carmen from [facility] returned call stating need for patient's chest x-ray and a negative flu/COVID result. Nursing updated. Aga from [facility] returned call stating additional needs for patient's EKG and a respiratory panel. [facility] stated ability to accept patient pending the facility receiving these documents. Nursing updated and Dr. Dolan updated. Patient updated of accepting facility and patient advised of this SW leaving for the night. Handoff to Jorge at Crisis. Packet faxed to Crisis (f: [phone]). Crisis to send [facility] remaining documents and receive official accepting information. Evy Tate, SUPPORT TECHNICIAN, LANDSCAPE AND YARDWORK LABORER
[2024-11-04] MEDS: Acetaminophen 325 MG Tablet PO (21:06)
[2024-11-04 21:07] VITALS: BP 145/87
[2024-11-04] MEDS: busPIRone 5 MG Tablet PO (21:08)
[2024-11-04] MEDS: Losartan Potassium 100 MG Tablet PO (21:08)
[2024-11-04] MEDS: Omega-3 Acid Ethyl Esters 1 GM Capsule PO (21:08)
[2024-11-04] MEDS: Atorvastatin Calcium 10 MG Tablet 5 MG PO (21:09)
[2024-11-04] MEDS: Nortriptyline 25 MG Capsule 50 MG PO (21:10)
[2024-11-05] MEDS: LORazepam 2 MG/ML Syringe IM (02:02)
[2024-11-05 02:05] VITALS: BP 180/70; PULSE 89; RESP 18; O2SAT 93
--- NOTE | 2024-11-05 02:08 | CT_ITS ---
INDICATION: Seizure EXAMINATION: CT BRAIN - CT Head or Brain W/O Contrast Injection TECHNIQUE: Multiple axial images were obtained of the head without intravenous contrast. A radiation dose optimization technique was used for this scan. IV Contrast dosage and agent: None. RADIATION DOSAGE (If Supplied By Facility): CTDIvol = ( 44.99 ) mGy, DLP = ( 846.73 ) mGycm COMPARISON: Prior study dated: 06/13/2023 FINDINGS: BRAIN PARENCHYMA: No intra- or extra-axial hemorrhage. No evidence of acute infarct. No intracranial mass or mass effect. There is preservation of the alexander/white matter interface. Posterior fossa structures are unremarkable. Patchy periventricular and deep white matter hypoattenuation is consistent with mild small vessel ischemic change. CSF SPACES: Proportional prominence of the ventricles and sulcal spaces is consistent with mild cerebral volume loss. No hydrocephalus. Basal cisterns are patent. CALVARIUM, SKULL BASE, PARANASAL SINUSES AND MASTOID AIR CELLS: The mastoid air cells and visualized paranasal sinuses are well aerated. The calvarium is intact. No discrete lytic or blastic abnormalities. ORBITS: Both globes, extraocular muscles, optic nerves and retrobulbar fat appear unremarkable. CT/Brain/Head without Contrast IMPRESSION: No acute intracranial finding. Electronically Signed: Rajinder aP MD at 3:30 EST ,
[2024-11-05 02:10] VITALS: BP 166/74; PULSE 98; RESP 18; O2SAT 93
--- NOTE | 2024-11-05 02:17 | ED.RN ---
This nurse into room d/t pt sitting in chair and slouched over. This nurse stated pts name and pt looked at this nurse and then became unresponsive. This nurse attempted sternal rub and Dr. Gu to room. Pt posturing, urinated on the floor and snoring respirations noted. Verbal order from Dr. Gu x1 2mg Ativan IM. Episode lasted roughly 3min. Pt assisted x4 back into bed. Pt slowly arousable and able to state she pollard scooted out of the bed into the chair because she needed to use the restroom. Explained to pt what had happened and pt stating she had never had a seizure before. Pt resting comfortably with seizure pads on bed.
[2024-11-05 02:27] LABS: Bedside Glucose 125 mg/dL (74-106)
--- NOTE | 2024-11-05 03:18 | ED.RN ---
TasiaRN called from [place] requesting an update on pt. Explained to nurse seizure activity that pt had. This nurse explained per Dr. Gu pt had x1 seizure and returned back to baseline after Ativan was given. Dr. Gu stating she would not need to be admitted for a x1 seizure but would need to follow up outpatient with Neuro. Dr. Gu stating all labs are good and waiting for final CT results at this time. Tasia stating she would need to update her Doctor before giving a final acceptance.
--- NOTE | 2024-11-05 03:38 | ED.RN ---
Tasia RN called stating pt can still be accepted to the [facility] Room [address] results and addendum was wrote by Dr. Gu stating pt is still medically cleared. Expressing that if pt were to have another seizure they would need to be called back. N-N [phone] ask for jail unit and they requested to be given eta at that time.
--- NOTE | 2024-11-05 03:43 | CPS ---
[1932] Pt. placed on her home BiPAP unit at this time.
[2024-11-05 04:17] VITALS: BP 138/54; PULSE 78; RESP 15; TEMP 36.7; O2SAT 97
--- NOTE | 2024-11-05 05:19 | ED.RN ---
Vishal, son requesting an update. Updated on events throughout the night and ride to be here around 0730. Vishal stating he was going to try and be up here before d/c but would like called if he is not. all questions answered.
[2024-11-05] MEDS: Gabapentin 300 MG Capsule PO (06:10)
[2024-11-05] MEDS: busPIRone 5 MG Tablet PO (06:10)
[2024-11-05] MEDS: Montelukast 10 MG Tablet PO (09:33)
[2024-11-05] MEDS: Cholecalciferol (VIT D3) 25 MCG TABLET (1,000 UNITS) 50 MCG PO (09:33)
[2024-11-05] MEDS: Citalopram 40 MG TABLET PO (09:33)
[2024-11-05] MEDS: Multivitamins,Therapeutic Tablet 1 TABLET PO (09:33)
[2024-11-05] MEDS: Omega-3 Acid Ethyl Esters 1 GM Capsule PO (09:33)
[2024-11-05] MEDS: amLODIPine 5 MG Tablet PO (09:33)
== END 2024-11-05 10:12 ==
LOC: ED 13:28
PROVIDERS: Physician Assistant; Emergency Provider Emergency Medicine; PCP Internal Medicine; Referring Provider Emergency Medicine; Visit Provider Emergency Medicine
DX: F41.9 Anxiety disorder, unspecified (principal); R56.9 Unspecified convulsions; E11.22 Type 2 diabetes mellitus with diabetic chronic kidney disease; N18.32 Chronic kidney disease, stage 3b; F32.A Depression, unspecified; R45.851 Suicidal ideations; I12.9 Hypertensive chronic kidney disease with stage 1 through stage 4 chronic kidney disease, or unspecified chronic kidney disease; E78.5 Hyperlipidemia, unspecified; Z79.899 Other long term (current) drug therapy; G47.30 Sleep apnea, unspecified; Z99.89 Dependence on other enabling machines and devices; Z96.643 Presence of artificial hip joint, bilateral
CPT/HCPCS: 70450; 71045; 80053; 80307; 81001; 82077; 82962; 85025; 87631; 87633; 93005; 96372; 99285; A4216

== ENCOUNTER → 2025-07-01 | Outpatient (CLI) | payer MEDICARE, SELFPAY ==
[2025-07-01 12:55] LABS: Hematocrit 37.6 % (37-47); Hemoglobin 12.3 g/dL (12.0-15.0); Immature Granulocytes Count 0.020 X10^3/uL (0.0-0.0); Mean Corp Hgb Conc 32.7 g/dL (32-36); Mean Corpuscular Volume 93.3 fL (81-99); Mean Platelet Vol. 9.6 fl (6.2-12.0); NRBC Flagged by Analyzer 0 % (0-5); Platelet Count 194 K/mm3 (150-450); RBC Distribution Width CV 11.9 % (11.6-14.6); RBC Distribution Width SD 40.8 fl (35.1-43.9); Red Blood Count 4.03 M/mm3 (4.2-5.4); White Blood Count 5.4 K/mm3 (4.4-11.0)
[2025-07-01 13:32] LABS: AST(SGOT) 23 U/L (<=31); Alanine Aminotransfer ALT/SGPT 19 U/L (<=34); Albumin, Serum 4.2 g/dL (3.4-4.8); Alkaline Phosphatase 98 U/L (35-104); Anion Gap 11 (5-15); BUN 21 mg/dL (4-19); BUN/Creat Ratio 16.7 RATIO (10-20); Calcium,Total 9.8 mg/dL (7.6-11.0); Carbon Dioxide 24.6 mmol/L (21.0-32.0); Chloride 104 mmol/L (98-108); Cholesterol 169 mg/dL (<=200); Globulin 2.7 g/dL (2.2-4.2); Glucose 104 mg/dL (70-99); Low Density Lipoprotein Calc. 87 mg/dL; Potassium 4.5 mmol/L (3.3-5.1); Triglycerides 96 mg/dL; Very Low Density Lipoprotein 19 mg/dL (5-40); cholesterol:hdl ratio screen 2.71
[2025-07-01 14:16] LABS: Vitamin D,25 Hydroxy 31.4 ng/mL (30-100)
== END | disposition home or self-care (01) ==
LOC: BIMLAB 08:25
PROVIDERS: PCP Internal Medicine; Referring Provider Internal Medicine; Visit Provider Internal Medicine
DX: I10 Essential (primary) hypertension (principal); E55.9 Vitamin D deficiency, unspecified
CPT/HCPCS: 36415; 80053; 80061; 82306; 85025

== ENCOUNTER → 2025-07-14 | Outpatient (CLI) | payer MEDICARE, SELFPAY ==
--- NOTE | 2025-07-14 15:30 | BD_ITS ---
PROCEDURE: DEXA BONE DENSITY/APPEND SKEL 07/14/2025 REASON FOR EXAM: SCREENING F, age 79 y/o . Postmenopausal. TECHNIQUE: Procedure Code: [id number] Modality: DX Procedure: DEXA BONE DENSITY/APPEND SKEL COMPARISON: None FINDINGS: BMD and T-SCORES Left 1/3 radius: 0.571 g/cm2, T-score -0.1 Right 1/3 radius: 0.573 g/cm2, T-score -0.1 The World Health Organization has defined the following categories based on bone density: Normal bone density: T-score equal to or greater than -1.0 Osteopenia: T-score between -1.0 and -2.5 Osteoporosis: T-score equal to or less than -2.5 The patient does not meet the pharmacological treatment recommendations for prevention of osteoporosis. BD/Dexa Bone Density/Append Skel IMPRESSION: NORMAL T-SCORES. Recommend follow-up as clinically warranted. Reading Location: [place] [id number]
== END | disposition home or self-care (01) ==
LOC: OPBD 14:50
PROVIDERS: PCP Internal Medicine; Referring Provider Internal Medicine; Visit Provider Internal Medicine
DX: Z78.0 Asymptomatic menopausal state (principal)
CPT/HCPCS: 77081

== ENCOUNTER 2025-07-18 10:55 | Outpatient (RCR) | payer MEDICARE, SELFPAY ==
--- NOTE | 2025-07-19 10:01 | HP.PTEVAL_ITS ---
Patient's Visit Information Visit Information Visit Information: MOISÉS JIMENEZ is a 79 year old F referred to Physical Therapy by Dr. Srinivas Looney MD with a diagnosis of L hip pain. Date of Evaluation: 07/18/25 Physical Therapist: Jaswant Jordan DPT Visit Plan Frequency: 2x /Week Duration: 6 Weeks Plan: 1) L hip hip flexor stretching 2) Manual to L hip flexor 3) progressive L hip flexor strengthening, glute strengthening Subjective Subjective: Pt. is here today for her initial evaluation with diagnosis of L hip pain, tendon dis order. Pt. reports no mech of injury. PHM: B hip replacement, L hip ~10 year prior. Pt. reports having anterior hip pain. Decreased pain with sitting, heating pad does help. Increased pain with walking, standing. Pt. is sleeping well. No increase in L hip pain with sleeping. Pt. reports report pain that extends from anterior hip to anterior knee. Pt. did take prednisone, but is now off and pain in back to where is was previously. Pt. reports no exercises at this point in time. No issues with getting in/out of [facility]. Pt. is hopeful to reduce symptoms in order to get back to all ADLs without issues. Pain L anterior hip: Pain Intensity (Out of 10): 5 Pain Intensity Range: 2 and 8 Objective Objective: POSTURE: Pt. has slight increase in wt. shift to R side. Pt. has general flexed posture. PALPATION: Pt. has increased tenderness at anterior hip and hip flexor. Pt. has minimal greater trochanter pain. NEURO: normal throughout. ROM: L hip: PROM: flexion 100deg NE, abd 30deg NE, ER/IR normal. AROM: flexion 90deg increase NW, abd 30deg NE. Pt has tight HS and hip flexors. MMT: 4/5 distal LE strength, L hip: flexion 3/5 increase NW, abd 4/5 mild increase NW, ext 5/5 no NE. GAIT: pt. ambulates with cane. She uses either side. Physician had recommended using in R hand to help protect the L side and off load a little, but patient reports not being able to do this. We attempted again and patient reports just not liking doing this. Balance/Special Test Scores Lower Extremity Functional Score: 39 Goals Goal 1:: LTG: Pt. to have increased L hip strength to at least 4+/5. Goal Time Frame: 4-6 Weeks Goal 2:: LTG: pt. to ambulate with 0/10 L hip pain. Goal Time Frame: 4-6 Weeks Goal 3:: LTG: Pt. to be able to get in/out of car without increase in L hip pain. Goal Time Frame: 4-6 Weeks Rehabilitation Potential Physical Therapy Diagnosis: Pt. has L hip pain consistent with anterior hip tendinitis. She is very tender at iliopsoas region and is painful with activation of L hip anterior musculature. I would recommend that she do PT in order improve her L hip pain allowing for increased tolerance to all functional mobility. Rehabilitation Potential: Excellent Anticipated Interventions Patient/Client Instruction: Educate patient on: Condition, Plan of Care, Risk Factors and Benefits of Fitness Program For the Purpose of:: To improve health and function, To foster healthy habits, To improve decision making, To facilitate caregiver knowledge, To improve self management, To prevent re-injury and To improve ability to perform tasks related to life management Therapeutic Exercise to Include: Strength training, Power training, Postural training, Flexibilty training, Passive ROM and Active ROM For the Purpose of:: To decrease pain, To decrease swelling/inflammation, To increase ROM, To improve nutrient delivery to tissue, To increase oxygenation perfusion, To improve gait and locomotor functions, To improve health of tissue, To decrease soft tissue restriction and To increase flexibility/ROM Manual Therapy Techniques to Include: Mobilization and Soft tissue mobilization For the Purpose of:: To decrease pain Text: Thank you for the opportunity to evaluate your patient. For Medicare and Medicare HMO plans, please review the plan of care and approve it. It will need to be FAXED BACK to us at [phone] for Medicare purposes. For Medicare only, by signing this I certify the plan of care. Please let me know if there are questions or concerns regarding this plan of care. Physician Signatu re: Date:
== END 2025-07-18 19:00 | disposition home or self-care (01) ==
LOC: PT 10:55
PROVIDERS: PCP Internal Medicine; Referring Provider Specialist; Visit Provider Specialist
DX: M67.854 Other specified disorders of tendon, left hip (principal)
CPT/HCPCS: 97161

== ENCOUNTER 2025-09-14 12:07 | Emergency (ER) | payer MEDICARE, SELFPAY ==
[2025-09-14 12:10] VITALS: BP 148/90; PULSE 94; RESP 16; TEMP 36.7; O2SAT 100; BMI 35.7
--- NOTE | 2025-09-14 12:31 | EX.ED.DYSGE1 ---
HPI History of Present Illness Chief Complaint: Hypertension Informant: patient and EMS Narrative Narrative: Patient is an 80-year-old female presenting to the ED with elevated blood pressure readings at home. - Reports consistently elevated BP readings at home, with the highest recorded at 191 mmHg systolic, which was a couple days ago, she did not measure it this morning. Called EMS this morning due to feeling a little fatigued, they measured 153/90. - Denies any other associated symptoms such as lightheadedness, chest pain, headaches, or blurry vision. - Has been monitoring BP daily as advised by her physician due to slightly elevated readings in the office; last visit was in June. - Usual BP readings at home were around 150 mmHg; a recent reading [address] [facility] was 174 mmHg. Asymptomatic then. - States not currently on antihypertensive medications, but losartan and amlodipine on her list. I confirmed this with her, she states she has been taking them, including her doses this morning. - Denies taking any [id number] medications, including allergy or cold medicines. - No reported swelling in the legs. - Expresses anxiety about the upcoming holidays due to the recent passing of her in October last year. - Mentions a friend who suffered a CVA while driving, resulting in a severe accident and disability, making pt worried about her elevated reading. [facility] Medical History Allergic reaction Cellulitis of right elbow Laceration of right elbow Mixed anxiety and depressive disorder Constipation Fecal incontinence Anemia Depression Full incontinence of feces Stage 3b chronic kidney disease (CKD) Wears dentures Ambulates with cane Easy bruising Blackout Non-smoker CPAP (continuous positive airway pressure) dependence Shortness of breath on exertion Hoarseness Essential hypertension Bradycardia Junctional escape rhythm Dehydration Orthostatic hypotension Pulmonary emboli Unresponsive episode Anxiety and depression Sleep apnea Heart murmur Near syncope Elevated TSH Chronic renal failure, stage 3 (moderate) Obesity (BMI 30-39.9) Osteoarthritis Radicular pain of right lower extremity Chronic back pain Hyperlipidemia Exertional dyspnea Home Medications ?Medication ?Instructions ?Recorded ?Last Taken ?Type multivitamin 1 tab PO DAILY 04/22/24 Unknown History cholecalciferol (vitamin D3) 50 50 mcg PO DAILY #90 caps 09/21/24 Unknown Rx mcg (2,000 unit) capsule calcium carbonate 500 mg PO QDAY 10/14/24 Unknown History acetaminophen 500 mg tablet 500 mg PO Q6H PRN 12/29/24 Unknown History buspirone 15 mg tablet 15 mg PO TID #270 tabs 03/10/25 Unknown Rx escitalopram oxalate 10 mg tablet 10 mg PO QDAY #90 tabs 03/10/25 Unknown Rx (Lexapro) amlodipine 5 mg tablet 5 mg PO DAILY #90 tabs 06/28/25 Unknown Rx atorvastatin 10 mg tablet 10 mg PO QDAY #90 tabs 07/21/25 Unknown Rx losartan 100 mg tablet 100 mg PO QHS #90 tabs 09/04/25 Unknown Rx montelukast 10 mg tablet 10 mg PO DAILY #90 tabs 09/12/25 Unknown Rx nortriptyline 25 mg capsule 50 mg (2 x 25 mg) PO QHS #180 caps 09/12/25 Unknown Rx Allergy/AdvReac Type Severity Reaction Status Date / Time mold Allergy Mild unknown Verified 06/28/25 13:34 bacitracin (From Neosporin AdvReac Intermediate Rash Verified 06/28/25 13:34 ([id number])) neomycin (From Neosporin AdvReac Intermediate Rash Verified 06/28/25 13:34 ([id number])) polymyxin B (From Neosporin AdvReac Intermediate Rash Verified 06/28/25 13:34 ([id number])) Family History Mother Hypertension CVA (cerebral vascular accident) Father Hypertension Heart disease Brother Heart murmur Surgical History Hx of total hip arthroplasty History of right hip replacement (~10/2021) History of colonoscopy History of back surgery (~2014) History of left hip replacement (~2016) Social History adopted: No household members: spouse housing: assisted living facility number of children: 2 current occupational status: retired current occupation: worked multiple jobs pets and animals: Yes (1) pets and animals: cat(s) Smoking Status: Never smoker Electronic Cigarette Use: not used alcohol intake: never substance use type: does not use caffeine: No what type of physical activity do you participate in: none do you feel safe at home: Yes ROS ROS ED Constitutional Constitutional ED: Denies chills or fever(s) Eyes Eyes: Denies change in vision or diplopia ENT ENT ED: Denies rhinorrhea or sore throat Cardiovascular Cardiovascular: Denies chest pain or palpitations Respiratory/Chest Respiratory/Chest: Denies cough or dyspnea Gastrointestinal Gastrointestinal: Denies abdominal pain, diarrhea, nausea or vomiting Genitourinary Genitourinary ED: Denies dysuria or hematuria Musculoskeletal Musculoskeletal: Denies back pain or neck pain Integumentary Denies abscess or rash Neurologic Neurologic: Denies headache(s), paresthesias or weakness Psychiatric Psychiatric: Denies anxiety or suicidal thoughts EXAM Physical Exam Const Vital Signs: 09/14/25 12:10 09/14/25 12:13 09/14/25 12:45 Temperature 98.1 F Temperature Source Oral Pulse Rate 94 94 Respiratory Rate 16 17 Respiratory Effort Normal Respiratory Pattern Normal Blood Pressure 148/90 H 116/80 Blood Pressure Mean 109 92 Pulse Ox 100 99 Oxygen Delivery Method Room Air Room Air Positive well nourished and well developed General Appearance ED: well developed and NAD HEENT Reports moist mucous membranes normocephalic and atraumatic Eyes PERRL and EOMs intact bilaterally Neck full ROM and supple Resp normal respiratory effort and clear to auscultation bilaterally Cardio regular rate, regular rhythm and no murmurs GI non-tender and non-distended Auscultation: normoactive bowel sounds Palpation: soft Back/Spine no CVA tenderness General Back: other FROM Extremity normal to inspection General Extremety ED: Negative for edema, pulses abnormal or tenderness General Extremity: Negative for edema or pulses abnormal Neuro oriented x3, CN's II-XII intact bilaterally and no sensory deficits noted Sensorium / Orientation: awake and alert Motor Exam: strength 5/5 throughout Skin no rashes or lesions noted and no wounds MDM MDM MDM Narrative Medical decision making narrative: Assessment: The patient is an 80-year-old female presenting for elevated home blood-pressure readings noted as high as 191 mmHg systolic but currently measuring in the 140s in the ED. She denies chest pain, headache, blurry vision, focal neurologic deficits, or other concerning symptoms. Physical exam is benign with clear lungs, regular heart rhythm, no lower-extremity edema, and a soft, nontender abdomen. After obtaining labs and observing her in the ED, repeat blood pressure without treatment is 116/80. Given asymptomatic presentation and down-trending pressures, transient blood-pressure elevation without underlying hypertensive emergency is most likely. Plan: - Serial blood-pressure monitoring during ED stay - Basic metabolic panel, CBC, urinalysis obtained due to her fatigue and normal except for chronic renal insufficiency which is stable and leukocyte esterase with a small amount of pyuria in the urine. Unclear since she has no urinary symptoms if this is indicative of infection so this is sent for a culture but it is not felt that she needs urgent antibiotics based on this. - Provided reassurance and counseling on blood-pressure variability and stroke risk - Stable to discharge home and close outpatient follow-up if fatigue persists. Lab Data Attestation: I reviewed the patient's lab results. Labs: Laboratory Results - last 24 hr 09/14/25 09/14/25 12:20 13:10 WBC 6.1 RBC 4.31 Hgb 13.4 Hct 39.7 MCV 92.1 MCH 31.1 MCHC 33.8 RDW Std Deviation 40.5 RDW Coeff of Joseph 12.0 Plt Count 220 MPV 9.7 Immature Gran % (Auto) 0.500 Neut % (Auto) 49.7 Lymph % (Auto) 34.7 Cuming % (Auto) 9.7 Eos % (Auto) 4.3 Baso % (Auto) 1.1 H Absolute Neuts (auto) 3.0 Absolute Lymphs (auto) 2.12 Nucleated RBC % 0 Sodium 138 Potassium 4.0 Chloride 104 Carbon Dioxide 22.1 Anion Gap 12 BUN 17 Creatinine 1.31 H Estim Creat Clear Calc 40.98 L Est GFR (MDRD) Non-Af 41 L BUN/Creatinine Ratio 13.1 Glucose 110 H Calcium 9.9 Urine Color Yellow Urine Clarity Sl. Cloudy Urine pH 6.5 Ur Specific [place] 1.015 Urine Protein 30 H Urine Glucose (UA) Normal Urine Ketones Negative Urine Occult Blood 10 H Urine Nitrite Negative Urine Bilirubin Negative Urine Urobilinogen Normal Ur Leukocyte Esterase 500 H Urine RBC 0 SEEN Urine WBC 5-10 SEEN Ur Squamous Epith Cells 0-5 SEEN Urine Bacteria 1+ Urine Mucus 0 SEEN Discharge Plan Triage Chief Complaint: Hypertension ED Provider: Morris Nieves Dx/Rx/DC Orders Clinical Impression: Accelerated hypertension, Fatigue, Chronic renal insufficiency Instructions: Hypertension Dc, ED Weakness Uncertain Cause Prescriptions: Continued multivitamin Tablet 1 tab PO DAILY calcium carbonate 500 mg calcium (1,250 mg) tablet 500 mg PO QDAY acetaminophen 500 mg tablet 500 mg PO Q6H PRN escitalopram oxalate [Lexapro] 10 mg tablet 10 mg PO QDAY Qty: 90 1RF buspirone 15 mg tablet 15 mg PO TID Qty: 270 1RF cholecalciferol (vitamin D3) 50 mcg (2,000 unit) capsule 50 mcg PO DAILY Qty: 90 0RF amlodipine 5 mg tablet 5 mg PO DAILY Qty: 90 0RF atorvastatin 10 mg tablet 10 mg PO QDAY Qty: 90 1RF losartan 100 mg tablet 100 mg PO QHS Qty: 90 0RF nortriptyline 25 mg capsule 50 mg PO QHS Qty: 180 1RF montelukast 10 mg tablet 10 mg PO DAILY Qty: 90 0RF Primary Care Provider: Lisa Thomas Referrals: Lisa Thomas MD [Primary Care Provider, Internal Medicine] - 5-7 Days Activity Restrictions/Additional Instructions: - Your blood pressure was monitored in the ED and remains stable; no new blood pressure medications were started today - Blood tests, including kidney function, were obtained and are stable/unremarkable. A culture of your urine was sent, if showing infection in a couple days, we will contact you with a prescription for an antibiotic. Print Language: [place] Zealander Disposition Disposition: Home, Self Care
[2025-09-14 12:45] VITALS: BP 116/80; PULSE 94; RESP 17; O2SAT 99
[2025-09-14 12:53] LABS: Hematocrit 39.7 % (37-47); Hemoglobin 13.4 g/dL (12.0-15.0); Immature Granulocytes Count 0.030 X10^3/uL (0.0-0.0); Mean Corp Hgb Conc 33.8 g/dL (32-36); Mean Corpuscular Volume 92.1 fL (81-99); Mean Platelet Vol. 9.7 fl (6.2-12.0); NRBC Flagged by Analyzer 0 % (0-5); Platelet Count 220 K/mm3 (150-450); RBC Distribution Width CV 12.0 % (11.6-14.6); RBC Distribution Width SD 40.5 fl (35.1-43.9); Red Blood Count 4.31 M/mm3 (4.2-5.4); White Blood Count 6.1 K/mm3 (4.4-11.0)
[2025-09-14 13:15] LABS: Mucous, Urine 0 SEEN /hpf (<or=2+); Red Blood Cells-Urine 0 SEEN /hpf (0-5)
[2025-09-14 13:16] LABS: Color, Urine Yellow (Yellow); Glucose, Dipstick Normal (Normal); Ketone-Dipstick Negative (Negative); Leukocyte Esterase-Dipstick 500 /ul (Negative); Nitrite-Dipstick Negative (Negative); Occult Blood-Urine 10 /ul (Negative); Protein-Dipstick 30 mg/dl (Negative); Specific Gravity, Urine 1.015 (1.002-1.030); Urine Bilirubin Dipstick Negative (Negative)
[2025-09-14 13:22] LABS: Anion Gap 12 (5-15); BUN 17 mg/dL (4-19); BUN/Creat Ratio 13.1 RATIO (10-20); Calcium,Total 9.9 mg/dL (7.6-11.0); Carbon Dioxide 22.1 mmol/L (21.0-32.0); Chloride 104 mmol/L (98-108); Estimated Creatinine Clearance 40.98 ml/min (50-250); Glucose 110 mg/dL (70-99); Potassium 4.0 mmol/L (3.3-5.1)
[2025-09-14 13:32] LABS: Squamous Epithelial Cells - UA 0-5 SEEN /hpf (5-10)
--- NOTE | 2025-09-14 13:42 | ED.RN ---
Pt requesting to take home buspar dose. Dr. Nieves notifed and states ok to take home Buspar
[2025-09-14 13:49] VITALS: BP 138/88; PULSE 95; RESP 17; TEMP 36.7; O2SAT 98
== END 2025-09-14 14:00 | disposition home or self-care (01) ==
PROVIDERS: Emergency Provider Emergency Medicine; PCP Internal Medicine; Visit Provider Emergency Medicine
DX: I12.9 Hypertensive chronic kidney disease with stage 1 through stage 4 chronic kidney disease, or unspecified chronic kidney disease (principal); N18.32 Chronic kidney disease, stage 3b; Z79.899 Other long term (current) drug therapy; E78.5 Hyperlipidemia, unspecified; R53.83 Other fatigue; Z96.643 Presence of artificial hip joint, bilateral; F41.8 Other specified anxiety disorders
CPT/HCPCS: 80048; 81001; 85025; 87086; 87088; 99285; A4216